=== PATIENT | female | born 1945 | race Caucasian/White ===

== ENCOUNTER 2023-10-23 17:39 | Inpatient (IN) ==
--- NOTE | 2023-10-23 17:48 | ED Triage Note ---
Date of Service October 23, 2023 Provider in Triage Author: Desirae Padilla History of Present Illness This patient was briefly evaluated while in triage. An abbreviated physical exam was performed. This patient is a 78-year-old Female who presents to the ED for evaluation of high blood pressure. She states that she checks her blood pressure frequently at home. She states that she was recently taken off of her diuretic by her doctor due to an episode of dehydration. She states her last BP at home was around 200/100. She denies any symptoms other than feeling slightly flushed. She has been taking her blood pressure meds as prescribed. Physical Exam GENERAL: Non-toxic and in no acute distress. HEENT: Pupils equal. No obvious scleral icterus. HEART: Regular rate and rhythm. LUNGS: Clear to auscultation. No accessory muscle use. NEURO: Alert and oriented. No obvious neurological deficits on quick neuro exam. Initial orders for labs and / or imaging were placed and patient was placed in the waiting area until a bed is available. Please see further documentation for the full ED course.
--- NOTE | 2023-10-23 18:24 | XRay Report ---
XR chest 1V portable HISTORY: 78 years-old Female Htn acute hypertension COMPARISON: 03/11/2023 TECHNIQUE: PA view of the chest. FINDINGS: Left subclavian dual-lead pacer. Cardiomediastinal and hilar silhouettes are unchanged. Right upper a bdominal surgical clips. No pneumothorax, pleural effusion or airspace consolidation. Bones appear gr ossly intact. IMPRESSION: No acute process. ACT 112: Negative or not required by law. The above report was generated using voice recognition software. It may contain grammatical, syntax o r spelling errors. Electronically signed by: Hayden Frost M.D. 10/23/2023 6:23 PM
[2023-10-23 18:32] LABS: Basophils # (auto) 0.02 K/uL (0.00-0.20); Basophils % (auto) 0.3 %; Eosinophils # (auto) 0.07 K/uL (0.00-0.50); Hematocrit (blood only) 36.7 % (37.0-47.0); Hemoglobin 12.2 g/dl (12.0-16.0); Immature Granulocytes # (auto) 0.03 K/uL (0.01-0.20); Immature Granulocytes % (auto) 0.4 %; Lymphocytes # (auto) 2.44 K/uL (1.20-3.40); Lymphocytes % (auto) 33.6 %; Mean Corpuscular Hemoglobin 29.9 pg (25.0-34.0); Mean Corpuscular Hgb Conc 33.2 g/dL (32.0-36.0); Mean Platelet Volume 9.4 fL (9.4-12.4); Monocytes # (auto) 0.31 K/uL (0.11-0.59); Monocytes % (auto) 4.3 %; Neutrophils % (auto) 60.4 %; Platelet Count 279 K/uL (130-400); RDW Coefficient of Variation 14.8 % (11.5-14.5); RDW Standard Deviation 48.7 fL (36.4-46.3); Red Blood Count 4.08 M/uL (4.20-5.40); White Blood Count 7.27 K/ul (4.8-10.8)
[2023-10-23 18:50] LABS: Albumin Globulin Ratio 0.7 (0.9-2); Albumin Level 3.6 gm/dl (3.4-5.0); BUN Creatinine Ratio 19.3 (10-20); Bilirubin,Total 0.4 mg/dl (0.2-1.0); Calcium 9.9 mg/dl (8.6-10.3); Creatinine Clr Calc Pharmacy 44.4 ml/min; Est GFR (African American) 56.7 ml/min; Est GFR (Non-African American) 48.9 ml/min; Globulin 4.9 gm/dl (2.5-4.0); Potassium 3.6 mmol/L (3.5-5.1); Total Protein 8.5 gm/dl (6.0-8.3)
[2023-10-23 18:56] LABS: Troponin I High Sensitivity 23.3 pg/ml (0-14)
[2023-10-23 21:57] LABS: Appearance Urine Clear (Clear); Bacteria Urine Automated Negative (Negative); Bilirubin Urine Negative (Negative); Blood Urine 1+ (Negative); Cast Urine Automated 0 /lpf (0-5); Color Urine Yellow; Glucose Urine UA Negative (Negative); Ketones Urine Negative (Negative); Leukocyte Esterase Urine Negative (Negative); Nitrite Urine Negative (Negative); Protein Urine 3+ (Negative); RBC Urine Automated 0-4 /hpf (0-4); Specific Gravity Urine 1.008 (1.000-1.030); Urobilinogen Urine Negative (Negative); pH Urine 6.5 (4.5-7.5)
[2023-10-23] MEDS: LORazepam 1 MG TAB SL STA (22:16)
--- NOTE | 2023-10-23 23:29 | Emergency Department Note ---
History of Present Illness General Chief complaint: Hypertension Stated complaint: HIGH BLOOD PRESSURE Time Seen by Provider: 10/23/23 21:58 History of Present Illness Provider complaint: Hypertension 78-year-old female presents emergency department for hypertension. Patient reports that she noticed that her blood pressure was high. Patient reports she felt like her heart was racing. She denies any chest pain or difficulty breathing. No headache. Patient states that she has been compliant with her amlodipine. Patient reports that her PCP recently took her off of hydrochlorothiazide 25 mg. She states she took one of her old hydrochlorothiazide today but her blood pressure was still high so she came to the emergency department. 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 Home Medications Medication Instructions Recorded Confirmed Type cholecalciferol (vitamin D3) 25 5,000 unit PO DAILY 11/16/20 10/23/23 History mcg (1,000 unit) tablet multivitamin,tx-minerals 1 tab PO DAILY 11/16/20 10/23/23 History amlodipine 10 mg tablet 10 mg PO QAM 03/12/23 10/23/23 History ezetimibe 10 mg tablet 10 mg PO QPM 03/12/23 10/23/23 History gabapentin 100 mg capsule 100 mg PO QID 03/12/23 10/23/23 History levothyroxine 25 mcg tablet 25 mcg PO DAILYBB 03/12/23 10/23/23 History Lactobacil.acidophilus-Bifido.animalis 1 cap PO TIDM 10/23/23 10/23/23 History 5 billion cell sprinkle capsule (Probiotic) docusate sodium 100 mg capsule 100 mg PO BID 10/23/23 10/23/23 History fexofenadine 180 mg tablet 180 mg PO DAILY 10/23/23 10/23/23 History lisinopril 20 mg tablet 20 mg PO BID 10/23/23 10/23/23 History melatonin 3 mg tablet 3 - 9 mg PO HS PRN Sleep 10/23/23 10/23/23 History psyllium husk (with sugar) 3 1 tbsp PO DAILY 10/23/23 10/23/23 History gram/7 gram oral powder (Metamucil Free) Allergies Allergy/AdvReac Type Severity Reaction Status Date / Time adhesive Allergy Intermediate SKIN Verified 10/23/23 21:37 IRRITATION diltiazem Allergy Mild RASH Verified 10/23/23 21:37 Sulfa (Sulfonamide Allergy Mild RASH Verified 10/23/23 21:37 Antibiotics) Past Med/Surg History Medical History Actinic keratosis Cholelithiasis Anxiety Dyslipidemia 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, non-toxic Hypothyroidism CKD (chronic kidney disease) stage 2, GFR 60-89 ml/min Urethral caruncle Hypertension Asymptomatic microscopic hematuria Renal cell carcinoma Surgical History History of tonsillectomy and adenoidectomy Hx of hernia repair History of nephrectomy, right History of cataract surgery Family History Aunt Diabetes Mother Diabetes Colorectal cancer Hypertension Son Diabetes Father Heart disease Hypertension Other Breast cancer No significant family history Social History Smoking Status: Never smoker Hx Alcohol Use: No Hx Substance Use: No Preferred Language: Salvadorean Communication Ability: Effective Gluer Required: No Beliefs That Will Affect Care: None marital status: Current Living Situation: Spouse current occupational status: retired Feels Safe at Home: Yes Assistive Devices: None Physical Exam Vital Signs Vital Signs - 24 hr 10/23/23 17:44 10/23/23 18:26 10/23/23 20:41 Temperature 36.9 C Temperature Source Temporal Artery Scan Pulse Rate 102 H Pulse Rate [Finger] 98 H 88 Respiratory Rate 18 20 20 Respiratory Effort / Characteristics Non-Labored Spontaneous Non-Labored Spontaneous Non-Labored Spontaneous Respiratory Depth Normal Normal Normal Blood Pressure 208/118 H Blood Pressure [Left Arm] 175/103 H 187/112 H Blood Pressure Mean 148 Blood Pressure Mean [Left Arm] 127 137 Pulse Oximetry 98 97 98 Oxygen Delivery Method Room Air Room Air Room Air Sepsis Recent Fever Within 48 Hours No Sepsis New/Unexplained Change in Mental Status N/A Sepsis Action Taken by Nursing No Action Required 10/23/23 22:27 Temperature Temperature Source Pulse Rate 74 Pulse Rate [Finger] Respiratory Rate Respiratory Effort / Characteristics Respiratory Depth Blood Pressure Blood Pressure [Left Arm] Blood Pressure Mean Blood Pressure Mean [Left Arm] Pulse Oximetry Oxygen Delivery Method Sepsis Recent Fever Within 48 Hours Sepsis New/Unexplained Change in Mental Status Sepsis Action Taken by Nursing Physical Exam GENERAL: oriented to person, place, and time. appears well-developed and well- nourished. HENT: Exam performed. - Head: Normocephalic and atraumatic. EYES: Conjunctivae and EOM are normal. Right eye exhibits no discharge. Left eye exhibits no discharge. No scleral icterus. NECK: Normal range of motion. Neck supple. No JVD present. CV: Normal rate, regular rhythm, normal heart sounds and intact distal pulses. There is no peripheral edema. Palpable radial pulses bue. PULM/CHEST: Effort normal and breath sounds normal. No respiratory distress. No stridor. no wheezes. no rales. ABD: The abdomen is soft. There is no tenderness. NEURO: Motor and sensation grossly intact. SKIN: Skin is warm and dry. He is not diaphoretic. PSYCH: normal mood and affect. Behavior is normal. Judgment and thought content normal. Course Course 2157: The patient was evaluated in room A9. A complete history and physical exam was performed Administered Medications Discontinued Medications Lorazepam (Lorazepam 1 Mg Tab) 0.5 mg SL NOW STA Stop: 10/23/23 22:08 Last Admin: 10/23/23 22:16 Dose: 0.5 mg Documented By: JESSICA Medical Decision Making Laboratory Data Attestation: I reviewed the patient's lab results. 10/23/23 17:56 10/23/23 17:56 Lab Results 10/23/23 10/23/23 10/23/23 Range/Units 17:56 20:42 21:42 WBC 7.27 (4.8-10.8) K/ul RBC 4.08 L (4.20-5.40) M/uL Hgb 12.2 (12.0-16.0) g/dl Hct 36.7 L (37.0-47.0) % MCV 90.0 (80.0-100.0) fL MCH 29.9 (25.0-34.0) pg MCHC 33.2 (32.0-36.0) g/dL RDW Std Deviation 48.7 H (36.4-46.3) fL RDW Coeff of Molly 14.8 H (11.5-14.5) % Plt Count 279 (130-400) K/uL MPV 9.4 (9.4-12.4) fL Immature Gran % (Auto) 0.4 % Neut % (Auto) 60.4 % Lymph % (Auto) 33.6 % Hill % (Auto) 4.3 % Eos % (Auto) 1.0 % Baso % (Auto) 0.3 % Neut # (Auto) 4.40 (1.40-6.50) K/uL Lymph # (Auto) 2.44 (1.20-3.40) K/uL Hill # (Auto) 0.31 (0.11-0.59) K/uL Eos # (Auto) 0.07 (0.00-0.50) K/uL Baso # (Auto) 0.02 (0.00-0.20) K/uL Immature Gran # (Auto) 0.03 (0.01-0.20) K/uL Sodium 135 L (136-145) mmol/L Potassium 3.6 (3.5-5.1) mmol/L Chloride 102 (98-107) mmol/L Carbon Dioxide 24 (21-32) mmol/L Anion Gap 9 (3-11) BUN 21 (6-23) mg/dl Creatinine 1.09 (0.6-1.2) mg/dl Est Cr Clr Drug Dosing 44.4 ml/min Est GFR ( Amer) 56.7 ml/min Est GFR (Non-Af Amer) 48.9 ml/min BUN/Creatinine Ratio 19.3 (10-20) Glucose 99 (70-99(Fasting)) mg/dl Calcium 9.9 (8.6-10.3) mg/dl Total Bilirubin 0.4 (0.2-1.0) mg/dl AST 18 (13-39) U/L ALT 14 (7-52) U/L Alkaline Phosphatase 62 (34-104) U/L Troponin I High Sens 23.3 H 26.4 H (0-14) pg/ml Total Protein 8.5 H (6.0-8.3) gm/dl Albumin 3.6 (3.4-5.0) gm/dl Globulin 4.9 H (2.5-4.0) gm/dl Albumin/Globulin Ratio 0.7 L (0.9-2) Urine Color Yellow Urine Appearance Clear (Clear) Urine pH 6.5 (4.5-7.5) Ur Specific [place] 1.008 (1.000-1.030) Urine Protein 3+ H (Negative) Urine Glucose (UA) Negative (Negative) Urine Ketones Negative (Negative) Urine Blood 1+ H (Negative) Urine Nitrite Negative (Negative) Urine Bilirubin Negative (Negative) Urine Urobilinogen Negative (Negative) Ur Leukocyte Esterase Negative (Negative) Urine WBC (Auto) 1-5 (0-5) /hpf Urine RBC (Auto) 0-4 (0-4) /hpf U Hyaline Cast (Auto) 0 (0-5) /lpf U Epithel Cells (Auto) 10-20 H (0-5) /lpf Urine Bacteria (Auto) Negative (Negative) Imaging Data Attestation: I personally reviewed and interpreted this imaging study as follows: My Impression: Chest x-ray negative. Airway clear. No pneumothorax. No consolidation. No cardiomegaly or cephalization.. No free air under the diaphragm. No fractures of the skeletal structures. Radiologist's Impression: Chest X-Ray 10/23/23 17:49 XR chest 1V portable HISTORY: 78 years-old Female Htn acute hypertension COMPARISON: 03/11/2023 TECHNIQUE: PA view of the chest. FINDINGS: Left subclavian dual-lead pacer. Cardiomediastinal and hilar silhouettes are unchanged. Right upper abdominal surgical clips. No pneumothorax, pleural effusion or airspace consolidation. Bones appear grossly intact. IMPRESSION: No acute process. ACT 112: Negative or not required by law. The above report was generated using voice recognition software. It may contain grammatical, syntax or spelling errors. Electronically signed by: Hayden Frost M.D. 10/23/2023 6:23 PM ECG Data Attestation: I personally reviewed and interpreted this ECG as follows: Additional Comments: Paced rhythm with rate of 94. MT 166 QRS 94 QTc 462. No ectopy. MDM Narrative Cardiac monitoring: An order was placed for continuous cardiac monitoring. The monitor shows a rate of 80 with paced rhythm interpreted by me Patient was seen during a time of extreme volume and extreme acuity. Nursing triage protocols were initiated labs and imaging was conducted by protocol in the triage area. Labs showed a high-sensitivity troponin of 23.3 and her delta high-sensitivity troponin was elevated at 26.4. Given this findings as well as the patient's reported palpitations and high blood pressure, patient will be admitted to the [facility] hospitalist team for further evaluation. Dr. Kim will evaluate patient Impression & Plan Hypertension, Elevated troponin Discharge Plan Visit Data Chief Complaint: Hypertension Stated Complaint: HIGH BLOOD PRESSURE ED Provider: Favian Ferguson Discharge Problem: Hypertension, Elevated troponin Patient Disposition: Being Evaluated by Hospitalist Forms Stand Alone Forms: My [facility] Prescriptions Prescriptions: No Action cholecalciferol (vitamin D3) 25 mcg (1,000 unit) tablet 5,000 unit PO DAILY multivitamin,tx-minerals Tablet 1 tab PO DAILY levothyroxine 25 mcg tablet 25 mcg PO DAILYBB amlodipine 10 mg tablet 10 mg PO QAM gabapentin 100 mg capsule 100 mg PO QID ezetimibe 10 mg tablet 10 mg PO QPM lisinopril 20 mg tablet 20 mg PO BID melatonin 3 mg Tablet 3 - 9 mg PO HS PRN (Reason: Sleep) fexofenadine [Christie] 180 mg Tablet 180 mg PO DAILY docusate sodium 100 mg Capsule 100 mg PO BID Probiotic 5 billion cell Capsule, Sprinkle 1 cap PO TIDM psyllium husk (with sugar) [Metamucil Free] 3 gram/7 gram Powder 1 tbsp PO DAILY Referrals Referrals: Jb Garrett [Primary Care Provider] - Discharge Problem: Hypertension Qualifiers: Hypertension type: unspecified Qualified Code(s): I10 - Essential (primary) hypertension
--- NOTE | 2023-10-24 01:27 | History & Physical Report ---
Date of Service October 24, 2023 Assessment & Plan (1) Hypertensive urgency: Plan: 78-year-old female with past med history significant for hyperlipidemia, hypertension, history of calculus of gallbladder, CKD stage II, smoldering multiple myeloma, history of renal cell carcinoma s/p right nephrectomy 1997, history of symptomatic Mobitz type II's second degree heart block s/p pacemaker in February 2023 comes in because of hypertensive urgency. Patient states in first week of September she was having a lot of cough and on one day she almost passed out. Workup by PCP was unremarkable with 24 hours monitor and labs and thought to be dehydration and hydrochlorothiazide was stopped. She checks her blood pressure every2 /3 days and generally blood pressure in 130s/80s. There is a plan to start chemo for smoldering multiple myeloma. And she is anxious about it. Today when she checked her blood pressure it was in 200s. She checked with another blood pressure machine and it was still high and she got anxious. She took a dose of hctz. And she was brought to the hospital. In the ER she was given a dose of sublingual Ativan. And blood pressure came down to 160s. Currently resting comfortably. Denies any chest pain. No shortness of breath. Currently no cough. No headache. No dizziness. She states 4 days ago she had a brief episode of double vision. No runny nose or sore throat. Appetite is okay. No difficulty swallowing. No nausea. No abdominal pain. Normal bowel and bladder movements. No swelling in the legs. Hypertensive urgency Initial blood pressure in 200s Patient is somewhat anxious for upcoming chemo for smoldering multiple myeloma After dose of Ativan blood pressure in 160s And also recently her hydrochlorothiazide was stopped because of dehydration and she took a dose before coming to the hospital Will continue home lisinopril amlodipine Labetalol as needed for now Echo Telemetry Cardiac consult in a.m. Elevated troponin Mostly demand ischemia Follow serial enzymes and echo History of Mobitz type II second-degree heart block S/p pacemaker Hyperlipidemia On Zetia Hypothyroidism On Synthyroid History of renal cell carcinoma S/p right nephrectomy 1997 Smoldering multiple myeloma Plan for chemo Follow-up with heme-onc DVT prophylaxis Lovenox Disposition Telemetry Full code History of Present Illness Chief Complaint: Hypertensive urgency Primary Care Provider: Jb Garrett 78-year-old female with past med history significant for hyperlipidemia, hypertension, history of calculus of gallbladder, CKD stage II, smoldering multiple myeloma, history of renal cell carcinoma s/p right nephrectomy 1997, history of symptomatic Mobitz type II's second degree heart block s/p pacemaker in February 2023 comes in because of hypertensive urgency. Patient states in first week of September she was having a lot of cough and on one day she almost passed out. Workup by PCP was unremarkable with 24 hours monitor and labs and thought to be dehydration and hydrochlorothiazide was stopped. She checks her blood pressure every2 /3 days and generally blood pressure in 130s/80s. There is a plan to start chemo for smoldering multiple myeloma. And she is anxious about it. Today when she checked her blood pressure it was in 200s. She checked with another blood pressure machine and it was still high and she got anxious. She took a dose of hctz. And she was brought to the hospital. In the ER she was given a dose of sublingual Ativan. And blood pressure came down to 160s. Currently resting comfortably. Denies any chest pain. No shortness of breath. Currently no cough. No headache. No dizziness. She states 4 days ago she had a brief episode of double vision. No runny nose or sore throat. Appetite is okay. No difficulty swallowing. No nausea. No abdominal pain. Normal bowel and bladder movements. No swelling in the legs. Past medical history. As mentioned above past surgical history. Bone marrow biopsy. EGD with endoscopic ultrasound. Right nephrectomy. Tonsillectomy and adenoidectomy. Status post pacemaker. Social history. . No smoking. No alcohol use. No drug use. Family history. Mother had breast cancer. Colon cancer. Sister had breast cancer. Daughter had carotid body tumor. Father had heart disorder. Thyroid cancer. Brother had lung cancer. Brother had seizures. Allergies Allergy/AdvReac Type Severity Reaction Status Date / Time adhesive Allergy Intermediate SKIN Verified 10/23/23 21:37 IRRITATION diltiazem Allergy Mild RASH Verified 10/23/23 21:37 Sulfa (Sulfonamide Allergy Mild RASH Verified 10/23/23 21:37 Antibiotics) Home Medications Medication Instructions Recorded Confirmed Type cholecalciferol (vitamin D3) 25 5,000 unit PO DAILY 11/16/20 10/23/23 History mcg (1,000 unit) tablet multivitamin,tx-minerals 1 tab PO DAILY 11/16/20 10/23/23 History amlodipine 10 mg tablet 10 mg PO QAM 03/12/23 10/23/23 History ezetimibe 10 mg tablet 10 mg PO QPM 03/12/23 10/23/23 History gabapentin 100 mg capsule 100 mg PO QID 03/12/23 10/23/23 History levothyroxine 25 mcg tablet 25 mcg PO DAILYBB 03/12/23 10/23/23 History Lactobacil.acidophilus-Bifido.animalis 1 cap PO TIDM 10/23/23 10/23/23 History 5 billion cell sprinkle capsule (Probiotic) docusate sodium 100 mg capsule 100 mg PO BID 10/23/23 10/23/23 History fexofenadine 180 mg tablet 180 mg PO DAILY 10/23/23 10/23/23 History lisinopril 20 mg tablet 20 mg PO BID 10/23/23 10/23/23 History melatonin 3 mg tablet 3 - 9 mg PO HS PRN Sleep 10/23/23 10/23/23 History psyllium husk (with sugar) 3 1 tbsp PO DAILY 10/23/23 10/23/23 History gram/7 gram oral powder (Metamucil Free) Past Med/Surg History Medical History Actinic keratosis Cholelithiasis Anxiety Dyslipidemia 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, non-toxic Hypothyroidism CKD (chronic kidney disease) stage 2, GFR 60-89 ml/min Urethral caruncle Hypertension Asymptomatic microscopic hematuria Renal cell carcinoma Surgical History History of tonsillectomy and adenoidectomy Hx of hernia repair History of nephrectomy, right History of cataract surgery Family History Aunt Diabetes Mother Diabetes Colorectal cancer Hypertension Son Diabetes Father Heart disease Hypertension Other Breast cancer No significant family history Social History Smoking Status: Never smoker Do You Dip or Chew Tobacco: No; Hx Alcohol Use: No Hx Substance Use: No Preferred Language: Urdu Communication Ability: Effective Queen'S Counsel Required: No Beliefs That Will Affect Care: None marital status: Current Living Situation: Spouse current occupational status: retired Feels Safe at Home: Yes Safety Concerns: Feels Safe At This Time Assistive Devices: None Review of Systems Review of Systems: All systems reviewed & are unremarkable except as noted in HPI & below Physical Exam Physical Exam: General- Not in distress Head- atraumatic Eyes- PERRL. ENT- oropharynx clear Neck- supple, no JVD. Lungs- clear to auscultation no wheezing or crackles. Heart- regular rhythm; no murmur, no gallop. Abdomen- normal bowel sounds, soft, nontender, no distension. Extremities- no pretibial edema, no erythema seen Neuro- alert, oriented PERRL, no facial palsy; no dysarthria; moves extremities. Results & Data Results & Data Vital Signs (Past 12 Hours) Vital Signs Temp Pulse Pulse Resp BP BP Pulse Ox 10/24/23 00:18 68 15 166/102 H 96 10/24/23 00:00 68 21 95 10/24/23 00:00 166/102 H 10/23/23 23:38 164/88 H 10/23/23 23:38 64 17 95 10/23/23 23:38 65 20 164/88 H 97 10/23/23 23:30 65 18 94 10/23/23 23:00 63 15 95 10/23/23 22:30 65 19 95 10/23/23 22:27 74 10/23/23 22:26 69 17 96 10/23/23 20:41 88 20 187/112 H 98 10/23/23 18:26 98 H 20 175/103 H 97 10/23/23 17:44 36.9 C 102 H 18 208/118 H 98 O2 Del Method 10/24/23 00:18 Room Air 10/24/23 00:00 Room Air 10/24/23 00:00 10/23/23 23:38 10/23/23 23:38 Room Air 10/23/23 23:38 Room Air 10/23/23 23:30 Room Air 10/23/23 23:00 10/23/23 22:30 10/23/23 22:27 10/23/23 22:26 10/23/23 20:41 Room Air 10/23/23 18:26 Room Air 10/23/23 17:44 Room Air Diagnostic Findings Laboratory Results WBC 7.27 K/ul (4.8-10.8) 10/23/23 17:56 RBC 4.08 M/uL (4.20-5.40) L 10/23/23 17:56 Hgb 12.2 g/dl (12.0-16.0) 10/23/23 17:56 Hct 36.7 % (37.0-47.0) L 10/23/23 17:56 MCV 90.0 fL (80.0-100.0) 10/23/23 17:56 MCH 29.9 pg (25.0-34.0) 10/23/23 17:56 MCHC 33.2 g/dL (32.0-36.0) 10/23/23 17:56 RDW Std Deviation 48.7 fL (36.4-46.3) H 10/23/23 17:56 RDW Coeff of Molly 14.8 % (11.5-14.5) H 10/23/23 17:56 Plt Count 279 K/uL (130-400) 10/23/23 17:56 MPV 9.4 fL (9.4-12.4) 10/23/23 17:56 Immature Gran % (Auto) 0.4 % 10/23/23 17:56 Neut % (Auto) 60.4 % 10/23/23 17:56 Lymph % (Auto) 33.6 % 10/23/23 17:56 [place] % (Auto) 4.3 % 10/23/23 17:56 Eos % (Auto) 1.0 % 10/23/23 17:56 Baso % (Auto) 0.3 % 10/23/23 17:56 Neut # (Auto) 4.40 K/uL (1.40-6.50) 10/23/23 17:56 Lymph # (Auto) 2.44 K/uL (1.20-3.40) 10/23/23 17:56 [place] # (Auto) 0.31 K/uL (0.11-0.59) 10/23/23 17:56 Eos # (Auto) 0.07 K/uL (0.00-0.50) 10/23/23 17:56 Baso # (Auto) 0.02 K/uL (0.00-0.20) 10/23/23 17:56 Immature Gran # (Auto) 0.03 K/uL (0.01-0.20) 10/23/23 17:56 Sodium 135 mmol/L (136-145) L 10/23/23 17:56 Potassium 3.6 mmol/L (3.5-5.1) 10/23/23 17:56 Chloride 102 mmol/L (98-107) 10/23/23 17:56 Carbon Dioxide 24 mmol/L (21-32) 10/23/23 17:56 Anion Gap 9 (3-11) 10/23/23 17:56 BUN 21 mg/dl (6-23) 10/23/23 17:56 Creatinine 1.09 mg/dl (0.6-1.2) 10/23/23 17:56 Est Cr Clr Drug Dosing 44.4 ml/min 10/23/23 17:56 Est GFR ( Amer) 56.7 ml/min 10/23/23 17:56 Est GFR (Non-Af Amer) 48.9 ml/min 10/23/23 17:56 BUN/Creatinine Ratio 19.3 (10-20) 10/23/23 17:56 Glucose 99 mg/dl (70-99(Fasting)) 10/23/23 17:56 Calcium 9.9 mg/dl (8.6-10.3) 10/23/23 17:56 Total Bilirubin 0.4 mg/dl (0.2-1.0) 10/23/23 17:56 AST 18 U/L (13-39) 10/23/23 17:56 ALT 14 U/L (7-52) 10/23/23 17:56 Alkaline Phosphatase 62 U/L (34-104) 10/23/23 17:56 Troponin I High Sens 26.4 pg/ml (0-14) H 10/23/23 20:42 Total Protein 8.5 gm/dl (6.0-8.3) H 10/23/23 17:56 Albumin 3.6 gm/dl (3.4-5.0) 10/23/23 17:56 Globulin 4.9 gm/dl (2.5-4.0) H 10/23/23 17:56 Albumin/Globulin Ratio 0.7 (0.9-2) L 10/23/23 17:56 Urine Color Yellow 10/23/23 21:42 Urine Appearance Clear (Clear) 10/23/23 21:42 Urine pH 6.5 (4.5-7.5) 10/23/23 21:42 Ur Specific [place] 1.008 (1.000-1.030) 10/23/23 21:42 Urine Protein 3+ (Negative) H 10/23/23 21:42 Urine Glucose (UA) Negative (Negative) 10/23/23 21:42 Urine Ketones Negative (Negative) 10/23/23 21:42 Urine Blood 1+ (Negative) H 10/23/23 21:42 Urine Nitrite Negative (Negative) 10/23/23 21:42 Urine Bilirubin Negative (Negative) 10/23/23 21:42 Urine Urobilinogen Negative (Negative) 10/23/23 21:42 Ur Leukocyte Esterase Negative (Negative) 10/23/23 21:42 Urine WBC (Auto) 1-5 /hpf (0-5) 10/23/23 21:42 Urine RBC (Auto) 0-4 /hpf (0-4) 10/23/23 21:42 U Hyaline Cast (Auto) 0 /lpf (0-5) 10/23/23 21:42 U Epithel Cells (Auto) 10-20 /lpf (0-5) H 10/23/23 21:42 Urine Bacteria (Auto) Negative (Negative) 10/23/23 21:42 Impressions Chest X-Ray 10/23/23 17:49 XR chest 1V portable HISTORY: 78 years-old Female Htn acute hypertension COMPARISON: 03/11/2023 TECHNIQUE: PA view of the chest. FINDINGS: Left subclavian dual-lead pacer. Cardiomediastinal and hilar silhouettes are unchanged. Right upper abdominal surgical clips. No pneumothorax, pleural effus ion or airspace consolidation. Bones appear grossly intact. IMPRESSION: No acute process. ACT 112: Negative or not required by law. The above report was generated using voice recognition software. It may contain grammatical, syntax or spelling errors. Electronically signed by: Hayden Frost M.D. 10/23/2023 6:23 PM ECG Additional Comments: ECG. Atrial sensed ventricular paced rhythm with rate of 94. Code Status & VTE Plan VTE Prophylaxis Plan VTE Prophylaxis will be ordered: Yes
[2023-10-24] MEDS: GABAPENTIN 100 MG CAP PO STA (02:14)
[2023-10-24] MEDS: lisinopril 20 MG TAB PO STA (02:14)
[2023-10-24] MEDS ORDERED: LABETALOL HCL IV 5 MG/ML 20ML IV PRN (03:04)
[2023-10-24] MEDS ORDERED: ACETAMINOPHEN 325 MG TAB PO PRN (03:04)
[2023-10-24] MEDS ORDERED: NITROGLYCERIN SL 0.4 MG/TAB TAB SL PRN (03:04)
[2023-10-24] MEDS ORDERED: MELATONIN 3 MG TAB PO PRN (03:04)
[2023-10-24 06:28] LABS: Basophils # (auto) 0.01 K/uL (0.00-0.20); Basophils % (auto) 0.2 %; Eosinophils # (auto) 0.05 K/uL (0.00-0.50); Hemoglobin 10.4 g/dl (12.0-16.0); Immature Granulocytes # (auto) 0.02 K/uL (0.01-0.20); Immature Granulocytes % (auto) 0.4 %; Lymphocytes # (auto) 1.73 K/uL (1.20-3.40); Mean Corpuscular Hemoglobin 30.3 pg (25.0-34.0); Mean Corpuscular Hgb Conc 33.5 g/dL (32.0-36.0); Mean Corpuscular Volume 90.4 fL (80.0-100.0); Mean Platelet Volume 9.4 fL (9.4-12.4); Monocytes # (auto) 0.27 K/uL (0.11-0.59); Monocytes % (auto) 5.3 %; Neutrophils # (auto) 3.01 K/uL (1.40-6.50); Neutrophils % (auto) 59.1 %; Platelet Count 246 K/uL (130-400); RDW Standard Deviation 49.9 fL (36.4-46.3); Red Blood Count 3.43 M/uL (4.20-5.40); White Blood Count 5.09 K/ul (4.8-10.8)
[2023-10-24 06:50] LABS: BUN Creatinine Ratio 17.1 (10-20); Calcium 9.3 mg/dl (8.6-10.3); Creatinine Clr Calc Pharmacy 43.6 ml/min; Est GFR (African American) 55.5 ml/min; Est GFR (Non-African American) 47.9 ml/min
[2023-10-24 06:56] LABS: Troponin I High Sensitivity 32.2 pg/ml (0-14)
[2023-10-24] MEDS: LEVOTHYROXINE SODIUM 25 MCG TABLET PO SCH (07:23)
--- OUTSIDE RECORDS SUMMARY | 2023-10-24 07:25 | External Medical Summary | Summary of Care ---
Author Name Unknown Organization [facility] Address [address] [place] [address] Phone [phone] Care Team Providers Care Senior It Recruiter Name Role Phone Ofelia Garrett MD Primary Care Provider [phone] Encounter Details Date Type Department Care Team (Late st Contact Info) Description 10/22/2023 3:15 PM EDT Nurse Only Hematology/Oncology [facility] Liliane [place] [address] [place] [phone] Liliane, Nurse Hem Onc Scenery [address] [place] [address] Allergies Active Allergy Reactions Criticality Noted Date Comments Diltiazem Hcl 10/20/2008 Sulfa Antibiotics 01/17/2001 rash Wound Dressing Adhesive 03/23/2023 Device implant dressing documented as of this encounter (statuses as of 10/22/2023) Medications Medication Sig Dispensed Refills Start Date End Date Status DAILY MULTIVITAMIN PO TABS 1 tqab daily 0 Active amLODIPine (NORVASC) 10 MG Tablet Take by mouth daily. Every morning. 1 06/25/2015 Active Cholecalciferol 5000 UNITS TABS Take 5,000 Units by mouth daily. 0 Active Probiotic Product (PROBIOTIC & ACIDOPHILUS EX ST) Capsule Take 1 Cap by mouth three times a day with meals. 0 Active lisinopril (PRINIVIL) 20 MG Tablet Take 1 Tablet by mouth in the morning and 1 Tablet before bedtime. 0 Active Ezetimibe 10 MG Oral Tablet Take 1 Tablet by mouth in the morning. Takes in the evening. 0 Active Levothyroxine Sodium 25 MCG Oral Tablet (Levoxyl) Take 1 Tablet by mouth daily first thing in the morning. 0 04/26/2021 Active Gabapentin 100 MG Oral Capsule (Neurontin) TAKE 1 CAPSULE BY MOUTH THREE TIMES A DAY FOR NEUROPATHY 0 02/17/2021 Active Fexofenadine HCl 180 MG Oral Tablet (Christie Allergy) Take 1 Tablet by mouth in the morning. 0 Active Melatonin 3-10 MG Oral Tablet Take by mouth. 0 Active Metamucil Free & Natural 43 % Oral Powder (Psyllium) Take by mouth. 0 Act franco Docusate Sodium 100 MG Oral Capsule (Stool Softener) Take 1 Capsule by mouth in the morning and 1 Capsule before bedtime. 0 Active Aspirin 81 MG Oral CapsuleIndications:S moldering multiple myeloma Take 81 mg by mouth every evening. 90 Capsule 1 10/19/2023 Active dexAMETHasone 4 MG Oral Tablet (Decadron)Indication s:Smoldering multiple myeloma Take 10 tablets by mouth once a week 120 Tablet 1 10/19/2023 Active Acyclovir 400 MG Oral Tablet (Zovirax)Indications :Smoldering multiple myeloma Take 1 Tablet by mouth in the morning and 1 Tablet before bedtime. 180 Tablet 1 10/22/2023 Active documented as of this encounter (statuses as of 10/22/2023) Active Problems Problem Noted Date Diagnosed Date Smoldering multiple myeloma 10/11/2023 Encounter for antineoplastic chemotherapy 2023 Monoallelic mutation of SDHB gene 11/12/2020 Overview: pathogenic SDHB gene variant (c.286+2 T>A) detected via [employer]. Increased risk for Hereditary Paraganglioma Pheochromocytoma Syndrome. Please click the link below into your browser for a brief summary of current clinical management recommendations for Hereditary Paraganglioma Pheochromocytoma syndrome. SDHB Hx of actinic keratosis 04/14/2019 MGUS (monoclonal gammopathy of unknown significa nce) 03/25/2019 Hypertension goal BP (blood pressure) < 140/90 1 09/03/2016 CKD (chronic kidney disease) stage 2, GFR 60-89 ml/min 09/21/2016 DYSLIPIDEMIA, GOAL TO BE DETERMINED 07/08/2009 Overview: Per Lipid Taxonomy. Malignant neoplasm of kidney TOX DIF GOITER NO CRISIS NONTOX UNINODULAR GOITER Proteinuria GENERALIZED ANXIETY DIS Calculus of gallbladder with out mention of cholecystitis or obstruction documented as of this encounter (statuses as of 10/22/2023) Resolved Problems Problem Noted Date Diagnosed Date Resolved Date dysplastic nevi 08/04/2002 07/21/2015 HTN, goal below 140/90 12/21 PURE HYPERCHOLESTEROLEM 06/22 Overview: Per Lipid Taxonomy. documented as of this encounter (statuses as of 10/22/2023) Immunizations Name Administration Dates Next Due Seasonal Influenza, Quadrivalent Hd, 65+ Yrs documented as of this encounter Social History Tobacco Use Types Packs/Day Years Used Date Smoking Tobacco: Never Smokeless Tobacco: Never Alcohol Use Standard Drinks/Week Comments No 0 (1 standard drink = 0.6 oz pur e alcohol) Sex and Gender Information Value Date Recorded Sex Assigned at Not on file Gender Identity Not on file Sexual Orientation Not on file Job Start Date Occupation Industry Not on file Not on file Not on file documented as of this encounter Progress Notes * Omar Escobar, RN - 10/22/2023 4:16 PM EDT Patient education completed. documented in this encounter Plan of Treatment Upcoming Encounters Date Type Department Care Team (Latest Contact Info) Description 10/23/2023 1:30 PM EDT Pharmacy Pharmacy Hematology Oncology [facility] [address] [place] [address] [facility] Hem/Onc [address] [place] [address] 11/26/2023 8:00 AM EDT Office Visit Hematology/Oncol linette [facility] [place] [address] [place] [phone] Rosie Church MD [address] [place] [address] 12/10/2023 8:00 AM EDT Hospital Encounter ENDO [facility], Endoscopy Room [facility] [address] [place] [phone] Adama Dutta MD [address] [place] [address] 12/10/2023 8:00 AM EDT - 12/10/2023 8:45 AM EDT Surgery ENDO [facility], Endoscopy Room [facility] [address] [place] [phone] Adama Dutta MD [address] [place] [address] ESOPHAGOGASTRODUODENOSCOPY (EGD), FLEXIBLE, TRANSORAL, ENDOSCOPIC ULTRASOUND 12/12/2023 9:40 AM EDT Office Visit Dermatology [facility] [address] [place] [address] Meliza Tao PA-C [address] [place] [phone] 05/06/2024 10:00 AM EDT Cardiac Studies Cardiology, [facility] [address] [place] [address] [facility] [address] [place] [address] 07/24/2024 11:00 AM EST Imaging Radiology [address] [place] [id number] Scheduled Procedures Name Priority Associated Diagnoses Date/Ti me ESOPHAGOGASTRODUODENOSCOPY ( EGD), FLEXIBLE, TRANSORAL, ENDOSCOPIC ULTRASOUND Recall Pancreatic lesion 12/10/2023 8:00 AM EDT Health Maintenance Due Date Last Done Comments Depression Screening 1957 DTaP,Tdap,and Td Vaccines (1 - Tdap) 1964 Pneumococcal Vaccine: 65+ Years (1 of 1 - PCV) 09/24/2011 Zoster Vaccines (2 of 2) 07/05/2020 05/10/2020 Albumin/Creatinine Ratio 12/12/2020 018, 12/05/2016, 08/03/2016, Additional history exists *BASELINE EKG FOR HTN 08/01/2021 COVID-19 Vaccine (1 - season) 2023 TSH 02/24/2024 02/23/2023, 09/20, 06/06/2021, Additional history exists Influenza Vaccine (FLU shot) (Season Ended) 2024 05/10/2022, 06/10/2001, 07/02/2000 GFR 10/21/2024 10/22/2023, 08/24, 07/11/2023, Additional history exists DXA Scan 03/10/2026 03/10/2019, 01/21, 12/30/2013 Colorectal Cancer Screening Discontinued Fecal Occult Blood Test Discontinued 02/23/20, 06/03/2010, 08/24/2008 Cologuard Discontinued Colonoscopy Discontinued GARDASIL-HPV IMMUNIZATION SERIES Aged Out No longer eligible based on patient's age to complete this topic Hepatitis B Aged Out No longer eligi ble based on patient's age to complete this topic MENINGOCOCCAL (MENACTRA/MENVEO) Aged Out No longer eligible based on patient's age to complete this topic Sigmoidoscopy Discontinued documented as of this encounter Medical Devices Not on filedocumented as of this encounter Care Teams Senior It Recruiter Relationship Specialty Start Date End Date Ofelia Garrett MD [address] [place] [address] [place] [address] PCP - General 06/21/01 documented as of this encounter
--- OUTSIDE RECORDS SUMMARY | 2023-10-24 07:25 | External Medical Summary | Summary of Care ---
Author Name Unknown Organization [facility] Address [address] [place] [address] Phone [phone] Care Team Providers Care Assistant Professor Of Life Sciences Name Role Phone Ofelia Garrett MD Primary Care Provider [phone] [phone] Reason for Visit * Reason Onset Date Comments Precert Future 10/11/2023 Gian lujan Encounter Details Date Type Department Care Team (Late st Contact Info) Description 10/11/2023 Telephone Hematology/Oncology [facility] [address] [place] [phone] Mick Haji MD [address] [place] [address] Precert Future (Gian lujan) Allergies Active Allergy Reactions Criticality Noted Date Comments Diltiazem Hcl 10/20/2008 Sulfa Antibiotics 01/17/2001 rash Wound Dressing Adhesive 03/23/2023 Device implant dressing documented as of this encounter (statuses as of 10/23/2023) Medications Medication Sig Dispensed Refills Start Date [...] and 1 Capsule before bedtime. 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 Increased risk for Hereditary Paraganglioma Pheochromocytoma Syndrome. [...] as of this encounter (statuses as of 10/23/2023) Resolved Problems Problem Noted Date Diagnosed Date Resolved Date dysplastic nevi 08/04/2002 07/21/2015 HTN, goal below 140/90 12/21 PURE HYPERCHOLESTEROLEM 06/22 Overview: Per Lipid Taxonomy. documented as of this encounter (statuses as of 10/23/2023) Immunizations Name Administration Dates Next Due Influenza, Whole Virus 07/02/2000 1 Seasonal Influenza, Quadrivalent Hd, 65+ Yrs Seasonal Influenza, Split, IIV3, With Preserve, Inj 06/10/2001 06/10/2002 documented as of this encounter Social History [...] on file documented as of this encounter Miscellaneous Notes * Telephone Encounter - Tricia Jacinto RN - 10/23/2023 7:[address] Church: looks like patient is not proceeding with darzalex- please place either new order or alteration specifying that darzalex is discontinued, patient is proceeding with revlimid and decadron. Thanks! * Telephone Encounter - Omar Escobar RN - 10/22/2023 4:28 PM EDT MTM- Pt education completed, her and Dr. Church both sign REMS agreement form - faxed today to rn perioperative. Pt is aware to complete the survey ROBERT. * Telephone Encounter - Cornelia Mcginnis OSA - 10/16/2023 9:57 AM EDT Scheduled as noted below and sent message to Carol Mcneill about adding pt to Dr Jones due to not being ableto schedule * Telephone Encounter - Tricia Jacinto RN - 10/16/2023 9:41 AM EDT Since darzalex is denied, called patient. Advised her that it may be more beneficial to reschedule to also see Dr Church as this may change plan of care. Patient agreeable. Scheduling: please cancel appts today for labs/ nurse visit and reschedule for Sunday10/22/23 - labs "CBCd, CMP, SPEP, kappa, Ig, hep B labs" at 2:15pm - Dr Church at 2:45pm - nurse education visit at 3:15pm Patient aware of above. Thanks! * Telephone Encounter - Susan Wilkinson OSA - 10/15/2023 3:27 PM EDT Submitted today. Will update when determination is received. Susan Wilkinson Medication It Administrative Assistant P: [phone] F: [phone] 10/15/2023,3:27 PM * Telephone Encounter - Tricia Jacinto RN - 10/15/2023 2:42 PM EDT Please still move forward with auth for revlimid. Thanks! * Telephone Encounter - Mallory Rodriguez OSA - 10/15/2023 9:19 AM EDT Darzalex was denied. If revlimid is needed please send to [facility] pool [phone] * Telephone Encounter - Omar Escobar RN - 10/12/2023 3:57 PM EDT Pt ht added into chart, please update referral. * Addendum Note - Omar Escobar RN - 10/12/2023 11:53 AM EDTAddended by: OMAR ESCOBAR on: 10/12/2023 11:53 AM Modules accepted: Orders * Telephone Encounter - Omar Escobar RN - 10/11/2023 2:59 PM EDT [place] plan built and routed for signature. Will await auth. - Nurse education scheduled 10/16/23 - Consent signed: 10/10/23 - Standing lab orders placed: CBCd, CMP prior to each treatment, [place], SPEP, Ig once a month - Meds ordered: Dexamethasone, Aspirin 81mg, Acyclovir 400mg MT- FYI documented in this encounter Plan of Treatment Upcoming Encounters Date Type Department Care Team (Latest Contact Info) Description 10/23/2023 1:30 PM EDT Pharmacy Pharmacy Hematology Oncology [place] [address] [place] [address] [facility], [facility] Hem/Onc [address] [place] [address] 11/26/2023 8:00 AM EDT Office Visit Hematology/Oncol [facility] [address] [place] [phone] Rosie Church MD [address] [place] [address] 12/10/2023 8:00 AM EDT Hospital Encounter ENDO [facility], Endoscopy Room [facility] [address] [place] [phone] Adama Dutta MD [address] [place] [address] 12/10/2023 8:00 AM EDT - 12/10/2023 8:45 AM EDT Surgery ENDO [facility], Endoscopy Room [facility] [address] [place] [phone] Adama Dutta MD [address] [place] [address] ESOPHAGOGASTRODUODENOSCOPY (EGD), FLEXIBLE, TRANSORAL, ENDOSCOPIC ULTRASOUND 12/12/2023 9:40 AM EDT Office Visit Dermatology [facility] [address] [place] [address] Meliza Tao PA-C [address] [place] [phone] 05/06/2024 10:00 AM EDT Cardiac Studies Cardiology, [facility] [address] [place] [address] [place], Pacer Clinic [facility] [address] [place] [address] 07/24/2024 11:00 AM EST Imaging Radiology [address] [place] [address] Scheduled Procedures Name Priority Associated Diagnoses Date/Ti [...] *BASELINE EKG FOR HTN 08/01/2021 COVID-19 Vaccine ( season) 2023 TSH 02/24/2024 02/23/2023, 09/20, 06/06/2021, [...] Not on filedocumented as of this encounter Visit Diagnoses Diagnosis Smoldering multiple myeloma (SMM)- Primary Multiple myeloma, without mention of having achieved remission Pancreatic lesion Unspecified disease of pancreas documented in this encounter Care Teams Assistant Professor Of Life Sciences Relationship Specialty Start Date End Date Ofelia Garrett MD [address] [place] [address] [place] [address] PCP - General 06/21/01 documented as of this encounter
--- OUTSIDE RECORDS SUMMARY | 2023-10-24 07:25 | External Medical Summary | Summary of Care ---
Author Name Unknown Organization [facility] Address [address] [place] [address] Phone [phone] Care Team Providers Care Router Machine Operator Name Role Phone Ofelia Garrett MD Primary Care Provider [phone] Reason for Visit * Reason Onset Date Comments Precert Future 10/11/2023 Gian lujan Encounter Details Date Type Department Care Team (Late st Contact Info) Description 10/11/2023 Telephone Hematology/Oncology [facility] [address] [place] [phone] Mick Haji MD [address] [place] [address] Precert Future (Gian lujan) Allergies Active Allergy [...] SDHB gene variant (c.286+2 T>A) detected via [employer]. Increased risk for Hereditary Paraganglioma Pheochromocytoma Syndrome. [...] 10/22/2023) Immunizations Name Administration Dates Next Due Influenza, [...] encounter Miscellaneous Notes * Telephone Encounter - Omar Escobar RN - 10/22/2023 4:28 PM EDT MTM- Pt education completed, her and Dr. Church both sign REMS agreement form - faxed today to quality assurance lead. Pt is aware to complete the survey [...] when determination is received. Susan Wilkinson Medication Float Remover P: [phone] F: [phone] 10/15/2023,3:27 PM * Telephone Encounter - Tricia Jacinto RN - 10/15/2023 2:42 PM EDT Please still move forward with auth for revlimid. Thanks! * Telephone Encounter - Mallory Rodriguez OSA - 10/15/2023 9:19 AM EDT Darzalex was denied. If revlimid is needed please send to oral pool [phone] * Telephone Encounter - Omar Escobar RN - 10/12/2023 3:57 PM EDT Pt ht added into chart, please update referral. * Addendum Note - Omar Escobar RN - 10/12/2023 11:53 AM EDTAddended by: OMAR ESCOBAR on: 10/12/2023 11:53 AM Modules accepted: Orders * Telephone Encounter - Omar Escobar RN - 10/11/2023 2:59 PM EDT [place] plan built and routed for signature. Will await auth. - Nurse education scheduled 10/16/23 - Consent signed: 10/10/23 - Standing lab orders placed: CBCd, CMP prior to each treatment, [place], SPEP, Ig once a month - Meds ordered: Dexamethasone, Aspirin 81mg, Acyclovir 400mg MT- FYI documented in this encounter Plan of Treatment Upcoming Encounters Date Type Department Care Team (Latest Contact Info) Description 10/23/2023 1:30 PM EDT Pharmacy Pharmacy Hematology Oncology [address] [address] [facility], [facility] Hem/Onc [facility] [place] [address] 11/26/2023 8:00 AM EDT Office Visit Hematology/Oncol [facility] [place] [address] [place] [phone] Rosie Church MD 200 [facility] [place] [address] 12/10/2023 8:00 AM EDT Hospital Encounter ENDO [facility], Endoscopy Room [facility] [address] [place] [phone] Adama Dutta MD [address] [place] [address] 12/10/2023 8:00 AM EDT - 12/10/2023 8:45 AM EDT Surgery ENDO [facility], Endoscopy Room [facility] [address] [place] [phone] Adama Dutta MD [address] [place] [address] ESOPHAGOGASTRODUODENOSCOPY (EGD), FLEXIBLE, TRANSORAL, ENDOSCOPIC ULTRASOUND 12/12/2023 9:40 AM EDT Office Visit Dermatology [facility] [address] [place] [address] Meliza Tao PA-C [address] [place] [phone] 05/06/2024 10:00 AM EDT Cardiac Studies Cardiology, [facility] [address] [place] [address] [place], Pacer Clinic [facility] 132 [facility] [place] [address] 07/24/2024 11:00 AM EST Imaging Radiology [address] [place] [address] Scheduled Procedures Name Priority Associated Diagnoses Date/Ti [...] FOR HTN 08/01/2021 COVID-19 Vaccine (1 - 2022- season) 2023 TSH 02/24/2024 02/23/2023, 09/20, 06/06/2021, [...] pancreas documented in this encounter Care Teams Router Machine Operator Relationship Specialty Start Date End Date Ofelia Garrett MD [address] [place] [address] [place] [address] PCP - General 06/21/01 documented as of this encounter
--- OUTSIDE RECORDS SUMMARY | 2023-10-24 07:26 | External Medical Summary ---
Author Name Unknown Address Unknown Organization [id number]:LAB[facility]ATORY [facility] [place] - [facility] [address] [place] [address] Laboratory Report Ordering Provider Test Date Status ASHOK MULLER 10/22/2023 14:16:08 Final Observation Date Value Abnormality Reference (Units ) Status [place] light chains, Free, Serum 10/22/2023 14:16:08 463.00 Above high normal 3.30-19.40 (mg/L) Final Lambda light chains, free, Serum 10/22/2023 14:16:08 10.22 5.71-26.30 (mg/L) Final KAPPA LAMBDA FLC RATIO 10/22/2023 14:16:08 45.30 Above high normal 0.26-1.65 Final Performing Location [facility]ORY [facility] [place] - [facility] [place] [address]
--- OUTSIDE RECORDS SUMMARY | 2023-10-24 07:26 | External Medical Summary ---
Author Name Unknown Address Unknown Organization [id number]:LABORATORY [facility] [place] - [address] [facility] [address] Laboratory Report Ordering Provider Test Date Status ASHOK MULLER 10/22/2023 14:16:08 Final Observation Date Value Abnormality Reference (Units) Status PARAPROTEIN NORMAL/ABNORMAL 10/22/2023 14:16:08 Abnormal Abnormal Normal Final Protein 10/22/2023 14:16:08 7.2 6.0-8.3 (g/dL) Final Albumin/Protein.total [Pure mass fraction] in Serum or Plasma by Electrophoresis 10/22/2023 14:16:08 3.08 Below low normal 3.30-4.40 (g/dL) Final Alpha 1 globulin/Protein.tota l [Pure mass fraction] in Serum or Plasma by Electrophoresis 10/22/2023 14:16:08 0.21 0.10-0.30 (g/dL) Final Alpha 2 globulin/Protein.tota l [Pure mass fraction] in Serum or Plasma by Electrophoresis 10/22/2023 14:16:08 1.05 Above high normal 0.60-1.00 (g/dL) Final Beta globulin/Protein.tota l [Pure mass fraction] in Serum or Plasma by Electrophoresis 10/22/2023 14:16:08 2.59 Above high normal 0.80-1.30 (g/dL) Final Gamma globulin/Protein.tota l [Pure mass fraction] in Serum or Plasma by Electrophoresis 10/22/2023 14:16:08 0.27 Below low normal 0.70-1.70 (g/dL) Final Protein Fractions [Interpretation] in Serum or Plasma by Electrophoresis Narrative 10/22/2023 14:16:08 Abnormal. A paraprotein is present that has been previously identified as a monoclonal IgG kappa. Decreased gamma fraction. Unable to accurately identify or quantify the paraprotein due to its comigration in the beta region. Final Performing Location LAB[facility]ATORY [facility] [place] - [address] [facility] [address]
--- OUTSIDE RECORDS SUMMARY | 2023-10-24 07:26 | External Medical Summary ---
Author Name Unknown Address Unknown Organization K09:[facility] [facility] [address] [place] [address] Laboratory Report Ordering Provider Test Date Status ASHOK MULLER 10/22/2023 14:16:08 Final Observation Date Value Abnormality Reference (Units ) Status BUN 10/22/2023 14:16:08 24 Above high normal 6-20 (mg/dL) Final Creatinine 10/22/2023 14:16:08 1.3 Above high normal 0.5-1.0 (mg/dL) Final Glomerular filtration rate/1.73 sq M.predicted [Volume Rate/Area] in Serum, Plasma or Blood by Creatinine-based formula (CKD-EPI) 10/22/2023 14:16:08 44 Below low normal >=60 (mL/min) Final eGFR is calculated based on the CKD-EPI 2020 equation Sodium 10/22/2023 14:16:08 140 135-146 (m mol/L) Final Potassium 10/22/2023 14:16:08 3.9 3.5-5.1 (m mol/L) Final Cl 10/22/2023 14:16:08 103 98-107 (mm ol/L) Final CO2 10/22/2023 14:16:08 24 22-32 (mmo l/L) Final Anion gap 10/22/2023 14:16:08 13 7-15 (mmol /L) Final Glucose 10/22/2023 14:16:08 96 70-120 (mg /dL) Final Albumin 10/22/2023 14:16:08 3.5 Below low normal 3.8 -5.0 (g/dL) Final AST (Aspartate aminotransferase) 10/22/2023 14:16:08 15 10-35 (U/L) Fin al Alk Phos 10/22/2023 14:16:08 65 35-130 (U/ L) Final Bilirubin, Total 10/22/2023 14:16:08 <0.2 <=1 .2 (mg/dL) Final Calcium 10/22/2023 14:16:08 9.7 8.4-10.2 ( mg/dL) Final Protein 10/22/2023 14:16:08 7.7 6.0-8.3 (g /dL) Final ALT (Alanine aminotransferase) 10/22/2023 14:16:08 12 10-35 (U/L) Michael jose Performing Location [facility] [place] [address] [place] [address]
--- OUTSIDE RECORDS SUMMARY | 2023-10-24 07:26 | External Medical Summary | Summary of Care ---
Author Name Unknown Organization [facility] Address [address] [place] [address] Phone [phone] Care Team Providers Care Hand Molder And Caster Name Role Phone Ofelia Garrett MD Primary Care Provider [phone] Reason for Visit * Reason Onset Date Comments Medication Refill 10/22/2023 Encounter Details Date Type Department Care Team (Late st Contact Info) Description 10/22/2023 Refill Hematology/Oncology [facility] [place] [address] [facility] [place] [phone] Rosie Pulido MD 200 [facility] [place] [address] Smoldering multiple myeloma Allergies Active Allergy Reactions Criticality Noted Date [...] bedtime. 0 Active Aspirin 81 MG Oral CapsuleIndications :Smoldering multiple myeloma Take 81 mg by mouth every evening. 90 Capsule 1 10/19/2023 Active dexAMETHasone 4 MG Oral Tablet (Decadron)Indicati ons:Smoldering multiple myeloma Take 10 tablets by mouth once a week 120 Tablet 1 10/19/2023 Active Acyclovir 400 MG Oral Tablet (Zovirax)Indicatio ns:Smoldering multiple myeloma Take 1 Tablet by mouth in the morning and 1 Tablet before bedtime. 180 Tablet 1 10/22/2023 Active Acyclovir 400 MG Oral Tablet (Zovirax)Indicatio ns:Smoldering multiple myeloma Take 1 Tablet by mouth in the morning and 1 Tablet before bedtime. 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 Increased risk for Hereditary Paraganglioma Pheochromocytoma Syndrome. [...] encounter Miscellaneous Notes * Telephone Encounter - Rosie Pulido MD - 10/22/2023 12:52 PM EDT Signed Prescriptions: Disp Refills Acyclovir 400 MG Oral Tablet (Zovirax) 180 Ta*1 Sig: Take 1 Tablet by mouth in the morning and 1 Tablet before bedtime. Authorizing Provider: ROSIE PULIDO * Telephone Encounter - Omar Escobar RN - 10/22/2023 12:45 PM EDT Acyclovir pended, previous script sent to [facility], needs to be local pharmacy. documented in this encounter Plan of Treatment Upcoming Encounters Date Type Department Care Team (Latest Contact Info) Description 10/22/2023 2:10 PM EDT Laboratory Laboratory [facility] [employer] [address] [place] [phone] [facility] [address] [address] [place] [address] 10/22/2023 2:30 PM EDT Office Visit Hematology/Onco logy [facility] [place] [address] [place] [phone] Rosie Pulido MD [address] [place] [address] 10/22/2023 3:15 PM EDT Nurse Only Hematology/Onco logy [facility] [place] [address] [place] [phone] Liliane, Nurse Hem Onc [place] [address] [place] [address] 10/23/2023 1:30 PM EDT Pharmacy Pharmacy Hematology Oncology [place] [address] [place] [address] [facility], [facility] Hem/Onc [address] [place] [address] 11/26/2023 8:00 AM EDT Office Visit Hematology/Onco logy [facility] [place] [address] [place] [phone] Rosie Pulido MD [address] [place] [address] 12/10/2023 8:00 AM EDT Hospital Encounter ENDO [facility], Endoscopy Room [facility] [address] [place] [phone] Adama Dutta MD [address] [place] [address] 12/10/2023 8:00 AM EDT - 12/10/2023 8:45 AM EDT Surgery ENDO [facility], Endoscopy Room [facility] [address] [place] [phone] Adama Dutta MD [address] [place] [address] ESOPHAGOGASTRODUODENOSCOPY (EGD), FLEXIBLE, TRANSORAL, ENDOSCOPIC ULTRASOUND 12/12/2023 9:40 AM EDT Office Visit Dermatology [facility] [address] [place] [address] Meliza Tao PA-C [address] [place] [phone] 05/06/2024 10:00 AM EDT Cardiac Studies Cardiology, [facility] [address] [facility] [place] [address] [place], Pacer Clinic [facility] [address] [place] [address] 07/24/2024 11:00 AM EST Imaging Radiology [address] [place] [address] Scheduled Procedures Name Priority Associated Diagnoses Date/Ti [...] (Season Ended) 2024 05/10/2022, 06/10/2001, 07/02/2000 GFR 09/17/2024 09/17/2023, 06/23, 07/02/2023, Additional history exists DXA Scan 03/10/2026 03/10/2019, [...] encounter Visit Diagnoses Diagnosis Smoldering multiple myeloma Multiple myeloma, without mention of having achieved remission Pancreatic lesion Unspecified disease of pancreas documented in this encounter Care Teams Hand Molder And Caster Relationship Specialty Start Date End Date Ofelia Garrett MD [address] [place] [address] [place] [address] PCP - General 06/21/01 documented as of this encounter
--- OUTSIDE RECORDS SUMMARY | 2023-10-24 07:26 | External Medical Summary ---
Author Name Unknown Address Unknown Organization K09:[facility]ORY [place] [address] Laboratory Report Ordering Provider Test Date Status ASHOK MULLER 10/22/2023 14:16:08 Final Observation Date Value Abnormality Reference (Units ) Status SYNC LEUKOCYTES IN BLOOD BY AUTOMATED COUNT 10/22/2023 14:16:08 7.36 4.00-10.80 (K/uL) Final Segs 10/22/2023 14:16:08 69.3 40.0-75.0 (%) Final Lymphs % 10/22/2023 14:16:08 26.0 18.0-42.0 (%) Final Monos 10/22/2023 14:16:08 4.1 1.0-11.0 (%) Final Eosinophils 10/22/2023 14:16:08 0.5 0.0-6.0 (%) Final Basos 10/22/2023 14:16:08 0.1 0.0-2.0 (%) Final Absolute Segs 10/22/2023 14:16:08 5.10 1.80-7.70 (K/uL) Final Lymphs, absolute 10/22/2023 14:16:08 1.91 1.00-4.80 (K/ul) Final Monos, Abs 10/22/2023 14:16:08 0.30 0.00-1.10 (K/uL) Final Eos, Abs 10/22/2023 14:16:08 0.04 0.00-0.70 (K/uL) Final Basos, Abs 10/22/2023 14:16:08 0.01 0.00-0.20 (K/uL) Final Performing Location [facility] [place] [address]
--- OUTSIDE RECORDS SUMMARY | 2023-10-24 07:26 | External Medical Summary ---
Author Name Unknown Address Unknown Organization K01:LABORATORY [facility] - [address] [place] [address] Laboratory Report Ordering Provider Test Date Status TRISTA MULLERON 10/22/2023 14:16:08 Final Observation Date Value Abnormality Reference (Units ) Status IgG 10/22/2023 14:16:08 1941 Above high normal 70 0-1600 (mg/dL) Final IgA 10/22/2023 14:16:08 11 Below low normal 70- 400 (mg/dL) Final IgM 10/22/2023 14:16:08 10 Below low normal 40- 230 (mg/dL) Final Performing Location LAB[facility] - [address] [place] [address]
--- OUTSIDE RECORDS SUMMARY | 2023-10-24 07:26 | External Medical Summary ---
Author Name Unknown Address Unknown Organization K01:LAB[facility]ATORY [facility] - [address] [place] [address] Laboratory Report Ordering Provider Test Date Status ASHOK MULLER 10/22/2023 14:16:08 Final Observation Date Value Abnormality Reference (Units ) Status Hep B surface Ag 10/22/2023 14:16:08 Negative Neg ative Final Performing Location LAB[facility] - [address] [place] [address]
--- OUTSIDE RECORDS SUMMARY | 2023-10-24 07:26 | External Medical Summary ---
Author Name Unknown Address Unknown Organization K01:LABORATORY [place] [address] [place] [address] Laboratory Report Ordering Provider Test Date Status TRISTA MULLERON 10/22/2023 14:16:08 Final Observation Date Value Abnormality Reference (Units) Status Hepatitis B virus surface Ab [Units/volume] in Serum or Plasma by Immunoassay 10/22/2023 14:16:08 21.3 (mIU/mL) Final Hepatitis B virus surface Ab [Presence] in Serum by Immunoassay 10/22/2023 14:16:08 Positive Final HEPATITIS B SURFACE ANTIBODY, INTERPRETATION 10/22/2023 14:16:08 Immune to Hepatitis B Virus Final POSITIVE: >=11.5 mIU/mL
INDETERMINATE: 8.5-<11.5 mIU/mL
NEGATIVE: <8.5 mIU/mL Performing Location LABORATORY [place] [address] [place] [address]
--- OUTSIDE RECORDS SUMMARY | 2023-10-24 07:26 | External Medical Summary | Summary of Care ---
Author Name Unknown Organization [facility] Address [address] [place] [address] Phone [phone] Care Team Providers Care Chipper Name Role Phone Ofelia Garrett MD Primary Care Provider [phone] Reason for Visit * Reason Comments Follow Up Encounter Details Date Type Department Care Team (Late st Contact Info) Description 10/22/2023 2:30 PM EDT Office Visit Hematology/Oncology 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 Increased risk for Hereditary Paraganglioma Pheochromocytoma Syndrome. [...] Date Smoking Tobacco: Never Smokeless Tobacco: Never Tobacco Cessation:Counseling Given: Not Answered Alcohol Use Standard Drinks/Week Comments No 0 (1 standard drink = 0.6 oz pur e alcohol) Sex and Gender Information Value Date Recorded Sex Assigned at Not on file Gender Identity Not on file Sexual Orientation Not on file Job Start Date Occupation Industry Not on file Not on file Not on file documented as of this encounter Last Filed Vital Signs Vital Sign Reading Time Taken Comments Blood Pressure 175/88 10/22/2023 2:25 PM EDT Pulse 92 10/22/2023 2:25 PM EDT Temperature 37 C (98.6 F) 10/22/2023 2:25 PM EDT Respiratory Rate - - Oxygen Saturation 97% 10/22/2023 2:25 PM EDT Inhaled Oxygen Concentration - - Weight 78.6 kg (173 lb 4.8 oz) 10/22/2023 2:25 P M EDT Height - - Body Mass Index 29.75 10/12/2023 11:22 AM EDT documented in this encounter Progress Notes * Rosie Church MD - 10/22/2023 3:09 PM EDT Outpatient Consult Note Data Source: Patient, Epic record. Data Source: Patient, Epic record. 10/22/2023 3:09 PM Keysha Thomason [id number] 78 year old Patient Encounter: HEMATOLOGY/ONCOLOGY [facility] Cancer Diagnosis: Patient transferred from Dr. 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 Moore and subsequently followed by Dr. Vital now came [facility] for follow-up. Patient was seen by Dr. Tom in Nephrology consultation for evaluation of chronic proteinuria. He ordered labs and she was found to have a very low titer IgG kappa paraprotein. She had bone marrow aspirate and biopsy on 06/21/18 which showed MGUS - 9% plasmocytes on count from bone marrow, slight increase in number of plasma cells on aspirate and normocellular for age on aspirate ME ratio 2: 1 Biopsy slightly hypercellular for age, CD138 stain has an increase in number of plasma cells scattered throughout Impression was MGUS FISH Analysis Plasma Cell Myeloma Panel Results: Abnormal Interpretation: POSITIVE FOR GAINS OF CHROMOSOMES 5, 9, AND 15. Normal results were observed with the 1, 13, 14 (IgH), and 17 (TP53) probe sets. Skeletal survey was done on 10/23/2016 and it was negative for any focal lytic lesions. Shows a chronic degenerative changes She also has a history of renal cell carcinoma status post right nephrectomy in 1997. Repeat Bone marrow biopsy and aspirate done on 09/29/2022 which revealed 34% plasma cells with normal cytogenetics and negative FISH: Diagnosis Monoclonal gammopathy of unknown significance Comment: Routine cytogenetics and FISH studies have been ordered provided there is enough sample toprocess. A separate report will follow at 0845 Clinical History Other - specify in comment[IgG kappa MGUS; r/o multiple myeloma/amyloidosis Bone Marrow Aspirate Microscopic Findings No particles are present. The slides are markedly hypocellular. A rare megakaryocytes noted. Granulopoiesis is adequate an cardiac surgeon. A slight increase in plasma cells is noted. Granulopoiesis is normoblastic. M: E ratio is approximately 2.5:1. Iron Status An iron stain has 2+ positivity. No ring sideroblasts are seen Bone Marrow Biopsy and Clot Microscopic Findings The biopsy is adequate. Overall it is hypocellular for age. Cellularity fat ratio is approximately 20:80. All three cell lines are present however there are small collections of plasma cells in the background. A CD138 stain demonstrates approximately 34% plasma cells. Christoval lambda stains demonstrate a kappa predominant plasma cell population. A thioflavin T stain looking for amyloid is negative. Patient Name: Keysha Thomason Patient / Sex: 1945 / F Specimen Type: Bone Marrow Body Site: Bone Marrow Specimen ID: [id number] Accession / CaseNo: [id number] / [id number] Collection Date: 09/29/2022 01:23:00 PM Received Date: 10/02/2022 11:49:00 AM EDT Report Date: 10/10/2022 09:26:18 AM EST Reason for Referral: IgG kappa MGUS; r/o multiple myeloma/amyloidosis, MONOCLONAL GAMMOPATHY Results: Negative Interpretation: Del(1p): Not Detected Dup(1q): Not Detected Gains(5, 9, 15): Not Detected Del(13q)/-13: Not Detected Del(17p)(TP53): Not Detected IGH(Rearrangement): Not Detected Fluorescence in situ hybridization (FISH) analysis was performed using a Plasma Cell Myeloma probe panel. Karyotype: 46,XX[20] Interpretation: NORMAL FEMALE KARYOTYPE Patient was seen by Dr. Parisi at [facility] for 2nd opinion and he recommended treatment with the triple regimen incorporating daratumumab with lenalidomide plus Decadron which is an ongoing trial. Patient also has nephritic range proteinuria in 24 hour urine collection revealed 4 g of protein. Interval History: Her insurance company has declined for daratumumab since is not approved. Overall clinically she isstable without any new symptoms complain. LABS/IMAGING: Results for orders placed or performed in visit on 10/22/23 COMPREHENSIVE METABOLIC PANEL Result Value Ref Range BUN 24 (H) 6 - 20 mg/dL Creatinine 1.3 (H) 0.5 - 1.0 mg/dL Estimated Glomerular Filtration Rate 44 (L) >=60 mL/min Sodium 140 135 - 146 mmol/L Potassium 3.9 3.5 - 5.1 mmol/L Chloride 103 98 - 107 mmol/L CO2 24 22 - 32 mmol/L Anion Gap 13 7 - 15 mmol/L Glucose 96 70 - 120 mg/dL Albumin 3.5 (L) 3.8 - 5.0 g/dL AST 15 10 - 35 U/L Alkaline Phosphatase 65 35 - 130 U/L Bilirubin, Total <0.2 <=1.2 mg/dL Calcium 9.7 8.4 - 10.2 mg/dL Protein 7.7 6.0 - 8.3 g/dL ALT 12 10 - 35 U/L CBC Result Value Ref Range WBC 7.36 4.00 - 10.80 K/uL RBC 3.61 3.85 - 5.15 M/uL HGB 11.0 (L) 12.0 - 15.3 g/dL HCT 34.5 (L) 36.0 - 45.2 % MCV 95.6 81.5 - 97.5 fL MCH 30.5 27.0 - 34.0 pg MCHC 31.9 32.0 - 36.0 g/dL RDW 15.2 11.5 - 15.5 % PLT 270 140 - 400 K/uL MPV 9.4 6.6 - 11.1 fL DIFFERENTIAL, AUTOMATED Result Value Ref Range WBC 7.36 4.00 - 10.80 K/uL Neutrophils % 69.3 40.0 - 75.0 % Lymphocytes % 26.0 18.0 - 42.0 % Monocytes % 4.1 1.0 - 11.0 % Eosinophils % 0.5 0.0 - 6.0 % Basophils % 0.1 0.0 - 2.0 % Absolute Neutrophils 5.10 1.80 - 7.70 K/uL Absolute Lymphocytes 1.91 1.00 - 4.80 K/ul Absolute Monocytes 0.30 0.00 - 1.10 K/uL Absolute Eosinophils 0.04 0.00 - 0.70 K/uL Absolute Basophils 0.01 0.00 - 0.20 K/uL REVIEW OF SYSTEMS: General: No Fever, chills, night sweats, or weight loss. HEENT: No change in visual acuity, blurred or double vision. No epistaxis, facial pain, nasal discharge or change in hearing. Denies dysphagia, no muscosal ulceration, or sores noted. Cardiovascular: No chest pain, BAY, or palpitations Respiratory: No shortness of breath, cough, hemoptysis, or pleuritic chest pain Gastrointestinal: No abdominal pain, nausea, vomiting, diarrhea, rectal pain or bleeding Genitourinary: Denies Hematuria or dysuria Neurologic: No numbness, weakness, neuropathic pain or change in cognitive function Psychiatric: No vegetative signs of depression Endocrine: No symptoms of hypothyroidism or hyperglycemia Hematologic: No bleeding or lymph nodes noted As mentioned above, all of the systems were reviewed in full and are unremarkable. Past Medical History: Diagnosis Date Calculus of gallbladder without mention of cholecystitis or obstruction Dyslipidemia, goal LDL below 160 dysplastic nevi Generalized anxiety disorder HTN, goal below 140/90 Malignant neoplasm of kidney (HCC) Nontoxic uninodular goiter Proteinuria 07/23 Toxic diffuse goiter Current Outpatient Medications Medication Sig Dispense Refill DAILY MULTIVITAMIN PO TABS 1 tqab daily amLODIPine (NORVASC) 10 MG Tablet Take by mouth daily. Every morning. 1 Cholecalciferol 5000 UNITS TABS Take 5,000 Units by mouth daily. Probiotic Product (PROBIOTIC & ACIDOPHILUS EX ST) Capsule Take 1 Cap by mouth three times a daywith meals. lisinopril (PRINIVIL) 20 MG Tablet Take 1 Tablet by mouth in the morning and 1 Tablet before bedtime. Ezetimibe 10 MG Oral Tablet Take 1 Tablet by mouth in the morning. Takes in the evening. Levothyroxine Sodium 25 MCG Oral Tablet (Levoxyl) Take 1 Tablet by mouth daily first thing in the morning. Gabapentin 100 MG Oral Capsule (Neurontin) TAKE 1 CAPSULE BY MOUTH THREE TIMES A DAY FOR NEUROPATHY Fexofenadine HCl 180 MG Oral Tablet (Christie Allergy) Take 1 Tablet by mouth in the morning. Melatonin 3-10 MG Oral Tablet Take by mouth. Metamucil Free & Natural 43 % Oral Powder (Psyllium) Take by mouth. Docusate Sodium 100 MG Oral Capsule (Stool Softener) Take 1 Capsule by mouth in the morning and 1 Capsule before bedtime. Aspirin 81 MG Oral Capsule Take 81 mg by mouth every evening. 90 Capsule 1 dexAMETHasone 4 MG Oral Tablet (Decadron) Take 10 tablets by mouth once a week 120 Tablet 1 Acyclovir 400 MG Oral Tablet (Zovirax) Take 1 Tablet by mouth in the morning and 1 Tablet before bedtime. 180 Tablet 1 No current facility-administered medications for this visit. Social History Tobacco Use Smoking status: Never Smokeless tobacco: Never Substance Use Topics Alcohol use: No Drug use: No Review of patient's allergies indicates: Allergen Reactions Cardizem [Diltiazem Hcl] Sulfa Antibiotics rash Wound Dressing Adhesive Device implant dressing PHYSICAL EXAMINATION: General Appearance: Healthy appearing patient in no acute distress BP 175/88 (BP Site: Right Arm, BP Position: Sitting, BP Cuff Size: Regular) | Pulse 92 | Temp 37 C (98.6 F) (Tympanic) | Wt 78.6 kg (173 lb 4.8 oz) | SpO2 97% | BMI 29.75 kg/m | BSA 1.88 m Vitals reviewed. No change in the physical examination since last visit. ASSESSMENT: 77-year-old female with history of MGUS IgG kappa currently under follow-up. She was diagnosed in 2017. She had bone marrow biopsy and aspirate done on 06/21/2018 and shows 9% plasmocytes. Bone survey was negative for any lesions. She continues to have fluctuating level of IgG with the increase in the kappa free light chain and kappa and lambda ratio of 30. She had a PET scan done which shows no FDG avid osteolytic lesion. She had repeat bone marrow biopsy and aspirate done which showed 34% plasma cells. FSH was negativeand cytogenetics was normal. She also has history of renal cell carcinoma status post right nephrectomy done in 1997. She has smoldering multiple myeloma with normal cytogenetics and negative FISH. She also had abnormal finding on the pancreas and had upper endoscopic ultrasound and FNA done which is not diagnostic. She has a rising level of kappa light chain with stable IgG level. There were 34% plasma cells on the recent bone marrow biopsy with normal cytogenetics and FISH. She has high-risk smoldering multiple myeloma with more than 20% plasma cells, more than 20% ratio of kappa and lambda light chain and 2 g of IgG level. She also has proteinuria and urine was positive for Bence-Puentes protein. Last PET scan was done on 02/01/2022 and was PLAN: Patient was seen by Dr. Parisi for 2nd opinion and he recommended combination of daratumumab plus lenalidomide and Decadron. Her insurance company has declined the daratumumab biopsy densities not approved.. Discussed with the patient and in detail about diagnosis and prognosis reviewed all the available blood test result with him. Discussed with him about the benefit, risk, side effects toxicity of lenalidomide plus Decadron. After detailed discussion she agreed to proceed with combination of 2 drugs. The patient voiced understanding of all of the above. All questions and concerns were addressed in an apparently satisfactory manner. Rosie Church MD (This note was completed using the dictation program Fluency Direct. As such, there may be misspellings, word substitutions, or other variations that should not change the essence of the clinical content of this encounter note. If there is need for further clarification, please direct questions to me.) documented in this encounter Nursing Notes * aSdia Becerril MED ASSIST - 10/22/2023 2:27 PM EDT Patient identifed by name and birthdate Do you have any concerns about pain management for today's visit? No Living Will or Advance Directive for Health Care as noted on the problem list. [facility] is a way you can talk to your provider on line through e-mail. Would you like to sign up? I can activate it for you? ALREADY ACTIVE Filed Vitals: 10/22/23 1425 BP: 175/88 Pulse: 92 Temp: 37 C (98.6 F) TempSrc: Tympanic SpO2: 97% Weight: 78.6 kg (173 lb 4.8 oz) Patient was instructed to not get up on the exam table/exam chair until directed and assisted by their provider; patient is to remain seated in the chair/ wheelchair/ exam table/ exam chair for fall prevention and safety reasons. Patient is aware to have assistance to step down off exam table/exam chair with personnel. Patient voiced full comprehension of instructions. documented in this encounter Plan of Treatment Upcoming Encounters Date Type Department Care Team (Latest Contact Info) Description 10/23/2023 1:30 PM EDT Pharmacy Pharmacy Hematology Oncology [facility] [address] [place] [address] [facility], [facility] Clinic Hem/Onc [address] [place] [address] 11/26/2023 8:00 AM EDT Office Visit Hematology/Oncol [place] [address] [place] [phone] Rosie Church MD [address] [place] [address] 12/10/2023 8:00 AM EDT Hospital Encounter ENDO OSS, Endoscopy Room [facility] [address] [place] [phone] Adama Dutta MD [address] [place] [address] 12/10/2023 8:00 AM EDT - 12/10/2023 8:45 AM EDT Surgery ENDO [facility], Endoscopy Room [facility] [address] [place] [phone] Adama Dutta MD [address] [place] [address] ESOPHAGOGASTRODUODENOSCOPY (EGD), FLEXIBLE, TRANSORAL, ENDOSCOPIC ULTRASOUND 12/12/2023 9:40 AM EDT Office Visit Dermatology [facility] [address] [place] [address] Meliza Tao PA-C [address] [place] [phone] 05/06/2024 10:00 AM EDT Cardiac Studies Cardiology, [facility] [address] [facility] [place] [address] [place], Pacer Clinic [facility] [address] [place] [address] 07/24/2024 11:00 AM EST Imaging Radiology [address] [place] [address] Scheduled Procedures Name Priority Associated Diagnoses Date/Ti [...] EKG FOR HTN 08/01/2021 COVID-19 Vaccine ( - 2022- season) 2023 TSH 02/24/2024 02/23/2023, [...] this encounter Visit Diagnoses Diagnosis Smoldering multiple myeloma- Primary Multiple myeloma, without mention of having achieved remission Encounter for antineoplastic chemotherapy Pancreatic lesion Unspecified disease of pancreas documented in this encounter Care Teams Chipper Relationship Specialty Start Date End Date Ofelia Garrett MD [address] [place] [address] [place] [address] PCP - General 06/21/01 documented as of this encounter"
--- OUTSIDE RECORDS SUMMARY | 2023-10-24 07:26 | External Medical Summary | Summary of Care ---
Author Name Unknown Organization [facility] Address [address] [place] [address] Phone [phone] Care Team Providers Care Biztalk Software Developer Name Role Phone Ofelia Garrett MD Primary Care Provider [phone] -[phone] Reason for Visit * Reason Comments Outpatient Testing Encounter Details Date Type Department Care Team (Late st Contact Info) Description 10/22/2023 2:10 PM EDT Laboratory [facility] [place] [address] [place] [phone] [place], Lab Scenery [address] [place] [address] Smoldering multiple myeloma (SMM); Screening for viral disease Allergies Active Allergy Reactions Criticality Noted Date [...] SDHB gene variant (c.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 Increased risk for Hereditary Paraganglioma Pheochromocytoma Syndrome. [...] on file documented as of this encounter Plan of Treatment Upcoming Encounters Date Type Department Care Team (Latest Contact Info) Description 10/22/2023 3:15 PM EDT Nurse Only Hematology/Oncol linette [place] [address] [place] [phone] [place], Nurse Hem Onc [facility] [address] [place] [address] Arrived 10/23/2023 1:30 PM EDT Pharmacy Pharmacy Hematology Oncology [place] [address] [place] [address] [facility], [facility] Hem/Onc [address] [place] [address] 11/26/2023 8:00 AM EDT Office Visit Hematology/Oncol linette [place] [address] [place] [phone] Rosie Church MD [address] [place] [address] 12/10/2023 8:00 AM EDT Hospital Encounter ENDO [facility], Endoscopy Room [facility] [address] [place] [phone] Adama Dutta MD [address] [place] [address] 12/10/2023 8:00 AM EDT - 12/10/2023 8:45 AM EDT Surgery ENDO [facility], Endoscopy Room [facility] [address] [place] [phone] Adama Dutta MD [address] [place] [address] ESOPHAGOGASTRODUODENOSCOPY (EGD), FLEXIBLE, TRANSORAL, ENDOSCOPIC ULTRASOUND 12/12/2023 9:40 AM EDT Office Visit Dermatology [facility] [address] [place] [address] Meliza Tao PA-C [address] [place] [phone] 05/06/2024 10:00 AM EDT Cardiac Studies Cardiology, [facility] [address] [place] [address] [place], Pacer Clinic [facility] [address] [place] [address] 07/24/2024 11:00 AM EST Imaging Radiology [address] [place] [address] Pending Results Name Type Priority Associated Diagnoses Date /Time [id number], SERUM Lab Routine Smoldering multiple myeloma (SMM) 10/22/2023 2:16 PM EDT IMMUNOGLOBULIN QUANTITATIVE Lab STAT Smoldering multiple myeloma (SMM) 10/22/2023 2:16 PM EDT COMPREHENSIVE METABOLIC PANEL Lab STAT Smoldering multiple myeloma (SMM) 10/22/2023 2:16 PM EDT SERUM FREE LIGHT CHAINS Lab STAT Smoldering multiple myeloma (SMM) 10/22/2023 2:16 PM EDT SERUM PROTEIN ELECTROPHORESIS REFLEX PROFILE Lab STAT Smoldering multiple myeloma (SMM) 10/22/2023 2:16 PM EDT HEPATITIS B SURFACE ANTIGEN Lab Routine Screening for viral disease 10/22/2023 2:16 PM EDT HEPATITIS B CORE ANTIBODIES IGG AND IGM Lab Routine Screening for viral disease 10/22/2023 2:16 PM EDT HEPATITIS B SURFACE ANTIBODY Lab Routine Screening for viral disease 10/22/2023 2:16 PM EDT Scheduled Procedures Name Priority Associated Diagnoses Date/Ti [...] Screening Discontinued Fecal Occult Blood Test Discontinued 02/23/20 21, 06/03/2010, 08/24/2008 Cologuard Discontinued Colonoscopy Discontinued GARDASIL-HPV [...] Not on filedocumented as of this encounter Procedures Procedure Name Priority Date/Time Associated Diagnosis Comments DIFFERENTIAL, AUTOMATED STAT 10/22/2023 2:16 PM EDT Smoldering multiple myeloma (SMM) CBC STAT 10/22/2023 2:16 PM EDT Smoldering multiple myeloma (SMM) CBC STAT 10/22/2023 2:16 PM EDT Smoldering multiple myeloma (SMM) documented in this encounter Results * DIFFERENTIAL, AUTOMATED (10/22/2023 2:16 PM EDT) Pathologist [facility] WBC 7.36 4.00 - 10.80 K/uL 10/22/2023 2:26 PM EDT LABORATORY [facility] 56-02 Neutrophils % 69.3 40.0 - 75.0 % 10/22/2023 2:26 PM EDT [facility] 56-02 Lymphocytes % 26.0 18.0 - 42.0 % 10/22/2023 2:26 PM EDT [facility] 56-02 Monocytes % 4.1 1.0 - 11.0 % 10/22/2023 2:26 PM EDT LABORATORY [facility] 56-02 Eosinophils % 0.5 0.0 - 6.0 % 10/22/2023 2:26 PM EDT LABORATORY [facility] 56-02 Basophils % 0.1 0.0 - 2.0 % 10/22/2023 2:26 PM EDT LABORATORY [facility] 56-02 Absolute Neutrophils 5.10 1.80 - 7.70 K/uL 10/22/2023 2:26 PM EDT [facility] 56-02 Absolute Lymphocytes 1.91 1.00 - 4.80 K/ul 10/22/2023 2:26 PM EDT [facility] 56-02 Absolute Monocytes 0.30 0.00 - 1.10 K/uL 10/22/2023 2:26 PM EDT [facility] 56 Absolute Eosinophils 0.04 0.00 - 0.70 K/uL 10/22/2023 2:26 PM EDT [facility] 56 Absolute Basophils 0.01 0.00 - 0.20 K/uL 10/22/2023 2:26 PM EDT [facility] 56 Blood Venous blood specimen / Unknown Venipuncture / Unknown 10/22/2023 2:16 PM EDT 10/22/2023 2:16 PM EDT Rosie Church MD LAB BLOOD ORDERA BLES [facility] [address] [place] [address] * (ABNORMAL) CBC (10/22/2023 2:16 PM EDT) WBC 7.36 4.00 - 10.80 K/uL 10/22/2023 2:26 PM EDT [facility] 56 RBC 3.61 3.85 - 5.15 M/uL 10/22/2023 2:26 PM EDT [facility] 56 HGB 11.0(L) 12.0 - 15.3 g/dL 10/22/2023 2:26 PM EDT [facility] 56 HCT 34.5(L) 36.0 - 45.2 % 10/22/2023 2:26 PM EDT [facility] 56 MCV 95.6 81.5 - 97.5 fL 10/22/2023 2:26 PM EDT [facility] 56 MCH 30.5 27.0 - 34.0 pg 10/22/2023 2:26 PM EDT [facility] 56 MCHC 31.9 32.0 - 36.0 g/dL 10/22/2023 2:26 PM EDT [facility] 56 RDW 15.2 11.5 - 15.5 % 10/22/2023 2:26 PM EDT [facility] PLT 270 140 - 400 K/uL 10/22/2023 2:26 PM EDT [facility] MPV 9.4 6.6 - 11.1 fL 10/22/2023 2:26 PM EDT [facility] Blood Venous blood specimen / Unknown Venipuncture / Unknown 10/22/2023 2:16 PM EDT 10/22/2023 2:16 PM EDT Rosie Church MD LAB BLOOD [facility] [address] [place] [address] documented in this encounter Visit Diagnoses Diagnosis Smoldering multiple myeloma (SMM) Multiple myeloma, without mention of having achieved remission Screening for viral disease Special screening examination for unspecified viral disease Pancreatic lesion Unspecified disease of pancreas documented in this encounter Care Teams Biztalk Software Developer Relationship Specialty Start Date End Date Ofelia Garrett MD [address] [place] [address] [place] [address] PCP - General 06/21/01 documented as of this encounter
--- OUTSIDE RECORDS SUMMARY | 2023-10-24 07:26 | External Medical Summary | Summary of Care ---
Author Name Unknown Organization [facility] Address [address] [place] [address] Phone [phone] Care Team Providers Care Contract Graphic Designer Name Role Phone Ofelia Garrett MD Primary Care Provider [phone] [phone] Reason for Visit * Reason Onset Date Comments Advice 10/18/2023 Dr. Church Encounter Details Date Type Department Care Team (Late st Contact Info) Description 10/18/2023 Refill Hematology/Oncology [facility] [address] [facility] [place] [address] Services, Scheduling [address] [place] [address] Smoldering multiple myeloma Allergies Active Allergy Reactions Criticality Noted Date Comments Diltiazem Hcl 10/20/2008 Sulfa Antibiotics 01/17/2001 rash Wound Dressing Adhesive 03/23/2023 Device implant dressing documented as of this encounter (statuses as of 10/19/2023) Medications Medication Sig Dispensed Refills Start Date [...] and 1 Capsule before bedtime. 0 Active Acyclovir 400 MG Oral Tablet (Zovirax)Indications :Smoldering multiple myeloma Take 1 Tablet by mouth in the morning and 1 Tablet before bedtime. 180 Tablet 1 10/12/2023 Active dexAMETHasone 4 MG Oral Tablet (Decadron)Indication s:Smoldering multiple myeloma Take 10 tablets by mouth the day after treatment. 120 Tablet 0 10/16/2023 Active Aspirin 81 MG Oral CapsuleIndications:S moldering multiple myeloma Take 81 mg by mouth every evening. 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 Increased risk for Hereditary Paraganglioma Pheochromocytoma Syndrome. [...] as of this encounter (statuses as of 10/19/2023) Resolved Problems Problem Noted Date Diagnosed Date Resolved Date dysplastic nevi 08/04/2002 07/21/2015 HTN, goal below 140/90 12/21 PURE HYPERCHOLESTEROLEM 06/22 Overview: Per Lipid Taxonomy. documented as of this encounter (statuses as of 10/19/2023) Immunizations Name Administration Dates Next Due Influenza, [...] as of this encounter Miscellaneous Notes * Addendum Note - Kal Jacinto RN - 10/19/2023 10:07 AM EDTAddended by: KAL JACINTO on: 10/19/2023 10:07 AM Modules accepted: Orders * Telephone Encounter - Kal Jacinto RN - 10/19/2023 10:05 AM EDT This should have gone to local pharmacy. * Telephone Encounter - Margaret Crocker OSA - 10/18/2023 11:42 AM EDT Juana with [facility] called for clarification on the dexamethasone and aspirin prescriptions they received. She advised they need clarification on the directions for the dexamethasone and clarification on the drug form for the aspirin. Please contact Juana at [phone] & she provided a reference number of [id number]. Thank you. documented in this encounter Plan of Treatment Upcoming Encounters Date Type Department Care Team (Latest Contact Info) Description 10/22/2023 2:10 PM EDT Laboratory Laboratory [facility] [place] [address] [place] [phone] Liliane, Lab [facility] [address] [facility] [place] [address] 10/22/2023 2:30 PM EDT Office Visit Hematology/Onco logy [facility] [place] [address] [place] [phone] Rosie Church MD [address] [place] [address] 10/22/2023 3:15 PM EDT Nurse Only Hematology/Onco logy [facility] [place] [address] [phone] Liliane, Nurse Hem Onc [facility] [address] [place] [address] [address] 10/23/2023 1:30 PM EDT Pharmacy Pharmacy Hematology Oncology [place] [address] [place] [address] [facility], [facility] Hem/Onc [facility] [place] [address] 11/26/2023 8:00 AM EDT Office Visit Hematology/Onco logy [facility] [place] [phone] Rosie Church MD [address] [place] [place] [address] 12/10/2023 8:00 AM EDT Hospital Encounter ENDO [facility], Endoscopy Room [facility] [address] [place] [phone] Adama Dutta MD [address] [place] [address] 12/10/2023 8:00 AM EDT - 12/10/2023 8:45 AM EDT Surgery ENDO [facility], Endoscopy Room [facility] [address] [place] [phone] Adama Dutta MD [address] [place] [address] ESOPHAGOGASTRODUODENOSCOPY (EGD), FLEXIBLE, TRANSORAL, ENDOSCOPIC ULTRASOUND 12/12/2023 9:40 AM EDT Office Visit Dermatology [facility] [address] [place] [address] Meliza Tao PA-C [address] [place] [phone] 05/06/2024 10:00 AM EDT Cardiac Studies Cardiology, [facility] [address] [place] [address] [facility] [address] [place] [address] 07/24/2024 11:00 AM EST Imaging Radiology [address] [place] [address] Scheduled Procedures Name Priority Associated Diagnoses Date/Ti [...] 08/01/2021 COVID-19 Vaccine (1 - season) 2023 Influenza Vaccine (FLU shot) (#1) 2023 05/10/2022, 06/10/2001, 07/02/2000 TSH 02/24/2024 02/23/2023, 09/20, 06/06/2021, Additional history exists GFR 09/17/2024 09/17/2023, 06/23, 07/02/2023, Additional history [...] pancreas documented in this encounter Care Teams Contract Graphic Designer Relationship Specialty Start Date End Date Ofelia Garrett MD [address] [place], [place] [address] [address] PCP - General 06/21/01 documented as of this encounter
--- OUTSIDE RECORDS SUMMARY | 2023-10-24 07:26 | External Medical Summary | Summary of Care ---
Author Name Unknown Organization [facility] Address [address] [place] [address] Phone [phone] Care Team Providers Care Portable Grinding Machine Operator Name Role Phone Ofelia Garrett MD Primary Care Provider [phone] Reason for Visit * Reason Onset Date Comments Medication Refill 10/22/2023 Encounter Details Date Type Department Care Team (Late st Contact Info) Description 10/22/2023 Refill Hematology/Oncology [facility] [place] 200 [facility] [phone] Rosie Pulido MD 200 [facility] [place] [address] Smoldering multiple myeloma Allergies Active Allergy Reactions [...] SDHB gene variant (c.286+2 T>A) detected via [employer]. Increased risk for Hereditary Paraganglioma Pheochromocytoma Syndrome. [...] State [employer] [address] [place] [phone] Liliane Lab [address] [place] [address] 10/22/2023 2:30 PM EDT Office Visit Hematology/Onco logy [facility] [place] [address] [place] [phone] Rosie Pulido MD [address] [place] [address] 10/22/2023 3:15 PM EDT Nurse Only Hematology/Onco logy [facility] [place] [address] [place] [phone] Liliane, Nurse Hem Onc [facility] [address] [place] [address] 10/23/2023 1:30 PM EDT Pharmacy Pharmacy Hematology Oncology [place] [address] [place] [address] [facility], [facility] Hem/Onc [address] [place] [address] 11/26/2023 8:00 AM EDT Office Visit Hematology/Onco logy [facility] [place] [address] [place] [address] Rosie Pulido MD [address] [place] [address] 12/10/2023 8:00 AM EDT Hospital Encounter ENDO [facility], Endoscopy Room [facility] [address] [place] [phone] Adama Dutta MD [address] [place] [address] 12/10/2023 8:00 AM EDT - 12/10/2023 8:45 AM EDT Surgery ENDO [facility], Endoscopy Room [facility] [address] [place] [phone] Adama Dutta MD [address] [place] [address] ESOPHAGOGASTRODUODENOSCOPY (EGD), FLEXIBLE, TRANSORAL, ENDOSCOPIC ULTRASOUND 12/12/2023 9:40 AM EDT Office Visit Dermatology [facility] [address] [place] [address] Meliza Tao PA-C [address] [place] [phone] 05/06/2024 10:00 AM EDT Cardiac Studies Cardiology, [facility] 132 [facility] [place] [address] [place] [address] [place] [address] 07/24/2024 11:00 AM EST Imaging Radiology [address] [place] [address] Scheduled Procedures Name Priority Associated Diagnoses Date/Ti [...] pancreas documented in this encounter Care Teams Portable Grinding Machine Operator Relationship Specialty Start Date End Date Ofelia Garrett MD [address] [place] [address] [place] [address] PCP - General 06/21/01 documented as of this encounter
--- OUTSIDE RECORDS SUMMARY | 2023-10-24 07:26 | External Medical Summary ---
Author Name Unknown Address Unknown Organization K09:[facility] [address] Laboratory Report Ordering Provider Test Date Status ASHOK MULLER 10/22/2023 14:16:08 Final Observation Date Value Abnormality Reference (Units ) Status WBC, Total 10/22/2023 14:16:08 7.36 4.00-10.8 0 (K/uL) Final RBC 10/22/2023 14:16:08 3.61 3.85-5.15 (M/uL) Final Hemoglobin 10/22/2023 14:16:08 11.0 Below low normal 12 .0-15.3 (g/dL) Final HCT 10/22/2023 14:16:08 34.5 Below low normal 36. 0-45.2 (%) Final MCV 10/22/2023 14:16:08 95.6 81.5-97.5 (fL) Final MCH 10/22/2023 14:16:08 30.5 27.0-34.0 (pg) Final MCHC 10/22/2023 14:16:08 31.9 32.0-36.0 (g/dL) Final RDW 10/22/2023 14:16:08 15.2 11.5-15.5 (%) Final Platelets 10/22/2023 14:16:08 270 140-400 (K /uL) Final MPV 10/22/2023 14:16:08 9.4 6.6-11.1 ( fL) Final Performing Location [facility] [place] [address]
--- OUTSIDE RECORDS SUMMARY | 2023-10-24 07:26 | External Medical Summary ---
Author Name Unknown Address Unknown Organization K01:[facility] - [address] [place] [address] Laboratory Report Ordering Provider Test Date Status YOHANAASHOK 10/22/2023 14:16:08 Final Observation Date Value Abnormality Reference (Units ) Status Hepatitis B virus core Ab [Presence] in Serum 10/22/2023 14:16:08 Negative Negative Final Performing Location [facility] - [address] [place] [address]
--- OUTSIDE RECORDS SUMMARY | 2023-10-24 07:27 | External Medical Summary | Summary of Care ---
Author Name Unknown Organization [facility] Address [address] [place] [address] Phone [phone] Care Team Providers Care Education Research Analyst Name Role Phone Ofelia Garrett MD Primary Care Provider [phone] Reason for Visit * Reason Onset Date Comments Medication Refill 10/16/2023 [facility] Encounter Details Date Type Department Care Team (Late st Contact Info) Description 10/16/2023 Refill Hematology/Oncology [facility] 200 [facility] [place] [phone] Rosie Church MD [address] [place] [address] Smoldering multiple myeloma Allergies Active Allergy Reactions [...] 0 Active Acyclovir 400 MG Oral Tablet (Zovirax)Indicatio ns:Smoldering multiple myeloma Take 1 Tablet by mouth in the morning and 1 Tablet before bedtime. 180 Tablet 1 10/12/2023 Active dexAMETHasone 4 MG Oral Tablet (Decadron)Indicati ons:Smoldering multiple myeloma Take 10 tablets by mouth the day after treatment. 120 Tablet 0 10/16/2023 Active Aspirin 81 MG Oral CapsuleIndications :Smoldering multiple myeloma Take 81 mg by mouth every evening. 90 Capsule 1 10/16/2023 Active Aspirin 81 MG Oral CapsuleIndications :Smoldering multiple myeloma Take 81 mg by mouth every evening. 90 Capsule 1 10/12/2023 4 Discontinue d(Refill) dexAMETHasone 4 MG Oral Tablet (Decadron)Indicati ons:Smoldering multiple myeloma Take 10 tablets by mouth the day after treatment. 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 Increased risk for Hereditary Paraganglioma Pheochromocytoma Syndrome. [...] Telephone Encounter - Tricia Jacinto RN - 10/17/2023 8:11 AM EDTSigned Prescriptions: Disp Refills dexAMETHasone 4 MG Oral Tablet (Decadron) 120 Ta*0 Sig: Take 10 tablets by mouth the day after treatment.Authorizing Provider: AKIKO TONY Aspirin 81 MG Oral Capsule 90 Cap*1 Sig: Take 81 mg by mouth every evening.Authorizing Provider: AKIKO TONY * Telephone Encounter - Hyacinth Ruffin LPN - 10/16/2023 3:58 PM EDT Two refill requests with clarification comments from [facility] for the following medications; Aspirin 81 mg capsules: "These are available in Chewables and regular tablets:" Please send new prescription specifying which, chewables or regular tablets. Dexamethasone 4 mg, tablets: Please send new prescription with "Frequency" added to the sig. Prescriptions pended below. documented in this encounter Plan of Treatment Upcoming Encounters Date Type Department Care Team (Latest Contact Info) Description 10/22/2023 2:10 PM EDT Laboratory Laboratory [facility] [place] [address] [place], [place] [address] Liliane Lab [place] [address] [address] [place] [address] 10/22/2023 2:30 PM EDT Office Visit Hematology/Onco logy [facility] [place] [address] [place] [address] Rosie Church MD 200 [facility] [place], [place] [address] 10/22/2023 3:15 PM EDT Nurse Only Hematology/Onco logy [facility] [place] [address] [place], [place] [address] Liliane, Nurse Hem Onc [place] [address] [address] [place], [place] [address] 10/23/2023 1:30 PM EDT Pharmacy Pharmacy Hematology Oncology [facility] [address] [place] [address] [facility], [facility] Hem/Onc [address] [facility] [place] [address] 11/26/2023 8:00 AM EDT Office Visit Hematology/Onco logy [facility] [place] [address] [place] [phone] Rosie Church MD [address] [place] [address] 12/10/2023 8:00 AM EDT Hospital Encounter ENDO [facility], Endoscopy Room [facility] [address] [place] [phone] Adama Dutta MD [address] [place] [address] 12/10/2023 8:00 AM EDT - 12/10/2023 8:45 AM EDT Surgery ENDO [facility], Endoscopy Room [facility] [address] [place] [phone] Adama Dutta MD [address] [place] [address] ESOPHAGOGASTRODUODENOSCOPY (EGD), FLEXIBLE, TRANSORAL, ENDOSCOPIC ULTRASOUND 12/12/2023 9:40 AM EDT Office Visit Dermatology [facility] [place] [address] [place] [address] Meliza Tao PA-C [address] [place] [phone] 05/06/2024 10:00 AM EDT Cardiac Studies Cardiology, [facility] [address] [place] [address] [facility] [address] [place] [address] 07/24/2024 11:00 AM EST Imaging Radiology [address] [place] [address] Scheduled Procedures Name Priority Associated Diagnoses Date/Ti [...] FOR HTN 08/01/2021 COVID-19 Vaccine ( - season) 2023 Influenza Vaccine (FLU shot) [...] pancreas documented in this encounter Care Teams Education Research Analyst Relationship Specialty Start Date End Date Ofelia Grarett MD [address] [place] [address] [place] [address] PCP - General 06/21/01 documented as of this encounter
--- OUTSIDE RECORDS SUMMARY | 2023-10-24 07:27 | External Medical Summary | Summary of Care ---
Author Name Unknown Organization [facility] Address [address] [place] [address] Phone [phone] Care Team Providers Care Senior Courtroom Clerk Name Role Phone Ofelia Garrett MD Primary Care Provider [phone] Reason for Visit * Reason Comments Medication Management Encounter Details Date Type Department Care Team (Late st Contact Info) Description 10/17/2023 1:30 PM EDT Pharmacy Pharmacy Hematology Oncology [facility] [address] [place] [address] [facility] Hem/Onc [address] [place], [place] [id number] Smoldering multiple myeloma* Allergies Active Allergy Reactions Criticality Noted Date Comments Diltiazem Hcl 10/20/2008 Sulfa Antibiotics 01/17/2001 rash Wound Dressing Adhesive 03/23/2023 Device implant dressing documented as of this encounter (statuses as of 10/18/2023) Medications Medication Sig Dispensed Refills Start Date [...] as of this encounter (statuses as of 10/18/2023) Active Problems Problem Noted Date Diagnosed Date 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 Increased risk for Hereditary Paraganglioma Pheochromocytoma Syndrome. [...] as of this encounter (statuses as of 10/18/2023) Resolved Problems Problem Noted Date Diagnosed Date Resolved Date dysplastic nevi 08/04/2002 07/21/2015 HTN, goal below 140/90 12/21 PURE HYPERCHOLESTEROLEM 06/22 Overview: Per Lipid Taxonomy. documented as of this encounter (statuses as of 10/18/2023) Immunizations Name Administration Dates Next Due Seasonal [...] as of this encounter Progress Notes * Earlene Bey RPh - 10/18/2023 10:19 AM EDT MTM to follow up 10/22 to assess baseline hepatitis B panel and sent lenalidomide RX to [facility] if appropriate Earlene Bey, RodrickD, BCOP Clinical Pharmacist, [facility] Oral Chemotherapy [facility] 10/18/2023, 10:19 AM * Karen Quezada, showroom salesperson - 10/17/2023 12:30 PM EDT MEDICATION THERAPY MANAGEMENT LENALIDOMIDE TREATMENT STATUS NOTE Keysha Thomason [phone] Patient Phone Numbers Communication: Chart review TTreatment: Medication: Lenalidomide (Revlimid) Indication/Staging/Diagnosis Code: Smoldering Multiple Myeloma / D47.2 Dose: 10mg daily D1-21 every 28 days Administration: +/- food Start Date: TBD Primary Motor Coach Supervisor/Oncologist: Dr. Church Assessment and Plan: Yes/no Date Action Taken Sperry plan entered? yes 10/12/23 Consent completed? yes 10/10/23 Intro/med rec completed? yes 10/15/23 Precert completed? yes 10/16/23 Approved Test claim completed? yes 10/16/23 Rx to [facility] Specialty Pharmacy Financial assistance needed? NA Physician signature? yes 10/16/23 Rx released? no Education completed? [facility] will contact patient once med shipped/received to complete medication education Please refer to initial intake note for detailed review of regimen and patient- specific education points Karen Quezada showroom salesperson Qualitative Researcher Hematology Oncology Oral Chemotherapy Clinic Medication Therapy Disease Management [facility] 10/17/23,12:38 PM Time Spent on Encounter: < 5 minutes Encounter Group: Hematology Encounter Interventions Item Category: Oral Chemotherapy Lenalidomide documented in this encounter Plan of Treatment Upcoming Encounters Date Type Department Care Team (Latest Contact Info) Description 10/22/2023 2:10 PM EDT Laboratory Laboratory [facility] [place] [address] [place] [phone] Liliane Lab [place] 200 [facility] [place] [address] 10/22/2023 2:30 PM EDT Office Visit Hematology/Onco logy [facility] [place] [place] [address] [place] [phone] Rosie Church MD [address] [place] [address] 10/22/2023 3:15 PM EDT Nurse Only Hematology/Onco logy State Debra [place] [address] [place] [phone] [place], Nurse Hem Onc [place] [address] [place] [address] 10/23/2023 1:30 PM EDT Pharmacy Pharmacy Hematology Oncology [facility] [address] [place] [address] [facility] Hem/Onc [address] [facility] [place] [address] 11/26/2023 8:00 AM EDT Office Visit Hematology/Onco logy [facility] [place] [address] [place] [phone] Rosie Church MD [address] [place] [address] 12/10/2023 8:00 AM EDT Hospital Encounter ENDO [facility], Endoscopy Room [facility] [address] [place] [phone] Adama Dutta MD [address] [place] [address] 12/10/2023 8:00 AM EDT - 12/10/2023 8:45 AM EDT Surgery ENDO [facility], Endoscopy Room [facility] [address] [place] [phone] Adama Dutta MD [address] [place] [address] ESOPHAGOGASTRODUODENOSCOPY (EGD), FLEXIBLE, TRANSORAL, ENDOSCOPIC ULTRASOUND 12/12/2023 9:40 AM EDT Office Visit Dermatology [facility] [place] [address] [place] [address] Meliza Tao PA-C [address] [place] [phone] 05/06/2024 10:00 AM EDT Cardiac Studies Cardiology, [facility] [address] [place] [address] [facility] [address] [place] [address] 07/24/2024 11:00 AM EST Imaging Radiology [address] [place] [address] Scheduled Procedures Name Priority Associated Diagnoses Date/Ti [...] HTN 08/01/2021 COVID-19 Vaccine ( season) 2023 Influenza Vaccine (FLU shot) (#1) [...] pancreas documented in this encounter Care Teams Senior Courtroom Clerk Relationship Specialty Start Date End Date Ofelia Garrett MD [address] [place] [address] [place] [address] PCP - General 06/21/01 documented as of this encounter
--- OUTSIDE RECORDS SUMMARY | 2023-10-24 07:27 | External Medical Summary | Summary of Care ---
Author Name Unknown Organization [facility] Address [address] [place] [address] Phone [phone] Care Team Providers Care Solution Design Engineer Name Role Phone Ofelia Garrett MD Primary Care Provider [phone] [phone] Reason for Visit * Reason Onset Date Comments Medication Refill 10/16/2023 [facility] Encounter Details Date Type Department Care Team (Late st Contact Info) Description 10/16/2023 Refill Hematology/Oncology [facility] [address] [place] [phone] Rosie Church MD [address] [place] [address] Smoldering multiple myeloma Allergies Active Allergy Reactions Criticality Noted Date Comments Diltiazem Hcl 10/20/2008 Sulfa Antibiotics 01/17/2001 rash Wound Dressing Adhesive 03/23/2023 Device implant dressing documented as of this encounter (statuses as of 10/16/2023) Medications Medication Sig Dispensed Refills Start Date [...] as of this encounter (statuses as of 10/16/2023) Active Problems Problem Noted Date Diagnosed Date 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 Increased risk for Hereditary Paraganglioma Pheochromocytoma Syndrome. [...] as of this encounter (statuses as of 10/16/2023) Resolved Problems Problem Noted Date Diagnosed Date Resolved Date dysplastic nevi 08/04/2002 07/21/2015 HTN, goal below 140/90 12/21 PURE HYPERCHOLESTEROLEM 06/22 Overview: Per Lipid Taxonomy. documented as of this encounter (statuses as of 10/16/2023) Immunizations Name Administration Dates Next Due Seasonal [...] encounter Miscellaneous Notes * Telephone Encounter - Hyacinth Ruffin LPN - 10/16/2023 3:58 PM EDT Two refill requests with clarification comments from [facility] for the following medications; Aspirin 81 mg capsules: "These are available in Chewables and regular tablets:" Please send new prescription specifying which, chewables or regular tablets. Dexamethasone 4 mg, tablets: Please send new prescription with "Frequency" added to the sig. Prescriptions pended below. documented in this encounter Plan of Treatment Upcoming Encounters Date Type Department Care Team (Latest Contact Info) Description 10/17/2023 1:30 PM EDT Pharmacy Pharmacy Hematology Oncology [facility] [address] [place] [address] c, [facility] Hem/Onc [address] [place] [address] 10/22/2023 2:10 PM EDT Laboratory Laboratory [place] Debra Wagner [address] [place] [phone] Liliane, Lab Scenery [address] [place] [address] 10/22/2023 2:30 PM EDT Office Visit Hematology/Onco logy [place] Debra Wagner [address] [place] [phone] Rosie Church MD [address] [place] [address] 10/22/2023 3:15 PM EDT Nurse Only Hematology/Onco logy [place] Debra Wagner [address] [place] [phone] Liliane, Nurse Hem Onc Scenery [address] [place] [address] 11/26/2023 8:00 AM EDT Office Visit Hematology/Onco logy [place] Debra Wagner [address] [place] [phone] Rosie hCurch MD [address] [place] [address] 12/10/2023 8:00 AM EDT Hospital Encounter ENDO OSS[facility], Endoscopy Room [address] [place] [phone] Adama Dutta MD [address] [place] [address] 12/10/2023 8:00 AM EDT - 12/10/2023 8:45 AM EDT Surgery ENDO OSSC, Endoscopy Room O[facility] [address] [place] [phone] Aadma Dutta MD [address] [place] [address] ESOPHAGOGASTRODUODENOSCOPY (EGD), FLEXIBLE, TRANSORAL, ENDOSCOPIC ULTRASOUND 12/12/2023 9:40 AM EDT Office Visit Dermatology [facility] [address] [place] [address] Meliza Tao PA-C [address] [place] [phone] 05/06/2024 10:00 AM EDT Cardiac Studies Cardiology, [facility] [address] [place] [address] Gamal Jeff [facility] [address] [place] [address] 07/24/2024 11:00 AM EST Imaging Radiology [address] [place] [address] Scheduled Procedures Name Priority Associated Diagnoses Date/Ti [...] pancreas documented in this encounter Care Teams Solution Design Engineer Relationship Specialty Start Date End Date Ofelia Garrett MD [address] [place] [address] [place] [address] PCP - General 06/21/01 documented as of this encounter
--- OUTSIDE RECORDS SUMMARY | 2023-10-24 07:27 | External Medical Summary | Summary of Care ---
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 Increased risk for Hereditary Paraganglioma Pheochromocytoma Syndrome. [...] 10/16/2023) Immunizations Name Administration Dates Next Due Influenza, [...] encounter Miscellaneous Notes * Telephone Encounter - Cornelia Mcginnis OSA [...] when determination is received. Susan Wilkinson Medication Inhalation Therapy Aides Teacher P: [phone] F: [phone] 10/15/2023,3:27 PM * Telephone Encounter - Tricia Jacinto RN - 10/15/2023 2:42 PM EDT Please still move forward with auth for revlimid. Thanks! * Telephone Encounter - Mallory Rodriguez OSA - 10/15/2023 9:19 AM EDT Darzalex was denied. If revlimid is needed please send to [employer] [id number] * Telephone Encounter - Omar Escobar RN - 10/12/2023 3:57 PM EDT Pt ht added into chart, please update referral. * Addendum Note - Omar Escobar RN - 10/12/2023 11:53 AM EDTAddended by: OMAR ESCOBAR on: 10/12/2023 11:53 AM Modules accepted: Orders * Telephone Encounter - Omar Escobar RN - 10/11/2023 2:59 PM EDT [place] plan built and routed for signature. Will await auth. - Nurse education scheduled 10/16/23 - Consent signed: 10/10/23 - Standing lab orders placed: CBCd, CMP prior to each treatment, [place], SPEP, Ig once a month - Meds ordered: Dexamethasone, Aspirin 81mg, Acyclovir 400mg MTM- [facility] documented in this encounter Plan of Treatment Upcoming Encounters Date Type Department Care Team (Latest Contact Info) Description 10/17/2023 1:30 PM EDT Pharmacy Pharmacy Hematology Oncology [place] [address] [place] [address] [facility] Hem/Onc [address] [place] [address] 10/22/2023 2:10 PM EDT Laboratory Laboratory [facility] Liliane [place] [address] [place] [phone] Liliane, Lab Scenery [address] [place] [address] 10/22/2023 3:15 PM EDT Nurse Only Hematology/Onco logy [facility] Liliane [place] [address] [place] [phone] Liliane, Nurse Hem Onc Scenery [address] [place] [address] 11/26/2023 8:00 AM EDT Office Visit Hematology/Onco logy [facility] Liliane [place] [address] [place] [phone] Rosie Church MD [address] [place] [address] 12/10/2023 8:00 AM EDT Hospital Encounter ENDO OSSC, Endoscopy Room OSS [address] [place] [phone] Adama Dutta MD [address] [place] [address] 12/10/2023 8:00 AM EDT - 12/10/2023 8:45 AM EDT Surgery ENDO OSSC, Endoscopy Room [facility] [address] [place] [phone] Adama Dutta MD [address] [place] [address] ESOPHAGOGASTRODUODENOSCOPY (EGD), FLEXIBLE, TRANSORAL, ENDOSCOPIC ULTRASOUND 12/12/2023 9:40 AM EDT Office Visit Dermatology [facility] [address] [place] [address] Meliza Tao PA-C [address] [place] [phone] 05/06/2024 10:00 AM EDT Cardiac Studies Cardiology, [facility] [address] [place] [address] [place], Pacer Clinic [facility] [place] [address] 07/24/2024 11:00 AM EST Imaging Radiology [address] [place] [address] Scheduled Procedures Name Priority Associated Diagnoses Date/Ti [...] FOR HTN 08/01/2021 COVID-19 Vaccine (1 - 2022-24 season) 2023 Influenza Vaccine (FLU shot) (#1) [...] pancreas documented in this encounter Care Teams Military Aircraft Designer Relationship Specialty Start Date End Date Ofelia Garrett MD [address] [place] [address] [place] [address] PCP - General 06/21/01 documented as of this encounter
--- OUTSIDE RECORDS SUMMARY | 2023-10-24 07:27 | External Medical Summary | Summary of Care ---
Author Name Unknown Organization [facility] Address [address] [place] [address] Phone [phone] Care Team Providers Care Senior Environmental Consultant Name Role Phone Ofelia Garrett MD Primary Care Provider [phone] [phone] Reason for Visit * Reason Onset Date Comments Advice 10/18/2023 Dr. Church Encounter Details Date Type Department Care Team (Late st Contact Info) Description 10/18/2023 Telephone Hematology/Oncology [facility] [address] [place] [phone] Services, Scheduling [address] [place] [address] Advice (Dr. 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 Increased risk for Hereditary Paraganglioma Pheochromocytoma Syndrome. [...] 10/19/2023) Immunizations Name Administration Dates Next Due Seasonal [...] encounter Miscellaneous Notes * Telephone Encounter - Margaret Crocker OSA - 10/18/2023 11:42 AM EDT Juana with [facility] called for clarification on the dexamethasone and aspirin prescriptions they received. She advised they need clarification on the directions for the dexamethasone and clarification on the drug form for the aspirin. Please contact Juana at [phone] & she provided a reference number of [id number]. Thank you. documented in this encounter Plan of Treatment Upcoming Encounters Date Type Department Care Team (Latest Contact Info) Description 10/22/2023 2:10 PM EDT Laboratory Laboratory [place] Debra Wagner [address] [place] [address] [phone] Florentino Momin [address] [place] [address] [address] 10/22/2023 2:30 PM EDT Office Visit Hematology/Onco logy Bhavani M[place] [address] [place], [place] [phone] Rosie Church MD [address] [place], [place] [address] 10/22/2023 3:15 PM EDT Nurse Only Hematology/Onco logy Bhavani Momin [place] [address] [place], [place] [phone] [place], Nurse Hem Onc Scenery [address] [place] [address] 10/23/2023 1:30 PM EDT Pharmacy Pharmacy Hematology Oncology [place] [address] [place] [address] [facility], [facility] Hem/Onc [facility] [place] [address] 11/26/2023 8:00 AM EDT Office Visit Hematology/Onco logy Bhavani Momin [place] [address] [place], [place] [phone] Rosie Church MD [address] [place], [place] [address] 12/10/2023 8:00 AM EDT Hospital Encounter ENDO OSSC, Endoscopy Room [facility] [address] [place] [phone] Adama Dutta MD [address] [place] [address] 12/10/2023 8:00 AM EDT - 12/10/2023 8:45 AM EDT Surgery ENDO O[facility], Endoscopy Room [facility] [address] [place] [phone] Adama Dutta MD [address] [place] [address] ESOPHAGOGASTRODUODENOSCOPY (EGD), FLEXIBLE, TRANSORAL, ENDOSCOPIC ULTRASOUND 12/12/2023 9:40 AM EDT Office Visit Dermatology [facility] [address] [place] [address] Meliza Tao PA-C [address] [place] [phone] 05/06/2024 10:00 AM EDT Cardiac Studies Cardiology, [facility] [place] [address] Movluis antonio Pacer [facility] [address] [facility] [place] [address] 07/24/2024 11:00 AM EST Imaging Radiology [address] [place] [address] Scheduled Procedures Name Priority Associated Diagnoses Date/Ti [...] as of this encounter Care Teams Senior Environmental Consultant Relationship Specialty Start Date End Date Ofelia Garrett MD [address] [place] [address] [place] [address] PCP - General 06/21/01 documented as of this encounter
--- OUTSIDE RECORDS SUMMARY | 2023-10-24 07:27 | External Medical Summary | Summary of Care ---
Author Name Unknown Organization [facility] Address [address] [place] [address] Phone [phone] Care Team Providers Care Motor Bus Driver Name Role Phone Ofelia Garrett MD Primary Care Provider [phone] [phone] Reason for Visit * Reason Comments Medication Management Encounter Details Date Type Department Care Team (Late st Contact Info) Description 10/15/2023 1:15 PM EDT Pharmacy Pharmacy Hematology Oncology [facility] [address] [place] [address] [facility] Hem/Onc [address] [place], [place] [phone] Smoldering multiple myeloma* Allergies Active Allergy Reactions [...] bedtime. 0 Active Aspirin 81 MG Oral CapsuleIndications: Smoldering multiple myeloma Take 81 mg by mouth every evening. 90 Capsule 1 10/12/2023 Active Additional Information Patient not taking.Reported on 10/15/2023 Acyclovir 400 MG Oral Tablet (Zovirax)Indication s:Smoldering multiple myeloma Take 1 Tablet by mouth in the morning and 1 Tablet before bedtime. 180 Tablet 1 10/12/2023 Active dexAMETHasone 4 MG Oral Tablet (Decadron)Indicatio ns:Smoldering multiple myeloma Take 10 tablets by mouth the day after treatment. 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 Increased risk for Hereditary Paraganglioma Pheochromocytoma Syndrome. [...] as of this encounter Progress Notes * Karen Quezada, sleeping car conductor - 10/15/2023 8:16 AM EDT NEW REFERRAL TO ORAL CHEMO CLINIC/MEDICATION RECONCILIATION NOTE Keysha Thomason [id number] Patient Phone Numbers Communication: Spoke to: Patient: OCC brochure sent via [employer]. 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 Church Provider has consented patient: Yes Patient was introduced to Oral Chemotherapy Clinic: OCC is a free service for patients receiving oral chemo therapy. We are Pharmacists & Pharmacy Technicians, who are a part of hematology & oncology care across the [facility] system offering telephone based appointments from the comfort of your own home. Pharmacists are available Sunday-Sunday from 8am - 4:30pm. After 4:30pm, non- urgent messages can be left on the pharmacist voicemail, and urgent calls/questions/concerns should be directed to their oncologist office directly. In case of an emergency, patient is aware to call 911 or travel to nearest emergency department. Communicated to patient: Pharmacists will provide education about your medication, manage oral chemotherapy side effects & review labs. All information will be shared & available to your oncologist. Explained to patient: once they decide on a treatment with their Oncologist, a Pharmacist will review the treatment plan to ensure correct dosing, review labs & medications to prevent any interactions. Medication authorization is submitted to your insurance. Once approved, your Rx will be sent to the Pharmacy determined by your insurance plan. Specialty Pharmacy will contact you to arrange delivery & discuss co-payment and any assistance options, if required. A Pharmacist will contact you to provide medication education, follow up periodically to review lab results & to assess/manage side effects. Patient was reassured the process to obtain medication can take several days-weeks. PA pending Patient was informed that hepatitis B screening must be completed prior to initiation of treatment.Patient will have labs drawn tomorrow, 10/16/23 prior to nurse chemo counseling appointment. Patient has given verbal consent that staff from the Oral Chemotherapy Clinic can speak to John Thomason & Daughter Bethany Carmona regarding their treatment. Patient has given verbal consent that staff from the Oral Chemotherapy Clinic can leave a voicemailwith treatment-related information: Yes This information can be left on Performed medication reconciliation with patient; pharmacist will be in touch if there are any druginteractions with oral chemo. Patient voiced understanding on all accounts. MICHAEL Sanchez Tech Ladle Pourer Hematology Oncology Oral Chemotherapy Clinic Medication Therapy Disease Management [facility] 10/15/23,2:22 PM Time Spent on Encounter: 16 - 20 minutes Encounter Group: Hematology Encounter Interventions Item Category: Oral Chemotherapy Lenalidomide Problem/Rationale: Safety: Needs additional monitoring - Medication Requires monitoring Pharmacist Intervention(s): Medication reconciliation Magnitude of Intervention: Monitoring with no interventions (Level 0) documented in this encounter Plan of Treatment Upcoming Encounters Date Type Department Care Team (Latest Contact Info) Description 10/16/2023 1:15 PM EDT Laboratory Laboratory State Debra Wagner [address] [place] [phone] Liliane Lab Scenery [address] [place] [address] 10/16/2023 1:45 PM EDT Nurse Only Hematology/Onco logy [place] Debra Wagner [address] [place] [phone] Liliane, Nurse Hem Onc [facility] [address] [place] [address] [address] 10/17/2023 1:30 PM EDT Pharmacy Pharmacy Hematology Oncology [address] [address] [facility], [facility] Clinic Hem/Onc [facility] [place] [address] 11/26/2023 8:00 AM EDT Office Visit Hematology/Onco logy [place] Debra Wagner [address] [place], [place] [phone] Rosie Church MD [address] [place], [place] [address] 12/10/2023 8:00 AM EDT Hospital Encounter ENDO OSSC, Endoscopy Room [facility] [address] [place] [phone] Adama Dutta MD [address] [place] [address] 12/10/2023 8:00 AM EDT - 12/10/2023 8:45 AM EDT Surgery ENDO OSSC, Endoscopy Room [facility] [address] [place] [place] [phone] Adama Dutta MD [address] [place] [address] ESOPHAGOGASTRODUODENOSCOPY (EGD), FLEXIBLE, TRANSORAL, ENDOSCOPIC ULTRASOUND 12/12/2023 9:40 AM EDT Office Visit Dermatology [facility] [address] [place] [address] Meliza Tao PA-C [address] [place] [phone] 05/06/2024 10:00 AM EDT Cardiac Studies Cardiology, [facility] 132 [facility] [place] [address] [place], Pacer Clinic [facility] [place] [address] 07/24/2024 11:00 AM EST Imaging Radiology [address] [place] [address] Scheduled Procedures Name Priority Associated Diagnoses Date/Ti [...] COVID-19 Vaccine (1 - 2022- season) 2023 Influenza Vaccine (FLU shot) (#1) [...] pancreas documented in this encounter Care Teams Motor Bus Driver Relationship Specialty Start Date End Date Ofelia Garrett MD [address] [place] [address] [place] [address] PCP - General 06/21/01 documented as of this encounter
--- OUTSIDE RECORDS SUMMARY | 2023-10-24 07:27 | External Medical Summary | Summary of Care ---
Author Name Unknown Organization [facility] Address [address] [place] [address] Phone [phone] Care Team Providers Care Duty Manager Name Role Phone Ofelia Garrett MD Primary Care Provider [phone] Reason for Visit * Reason Onset Date Comments Advice 10/18/2023 Dr. Church Encounter Details Date Type Department Care Team (Late st Contact Info) Description 10/18/2023 Telephone Hematology/Oncology [facility] [address] [place] [phone] Services, Scheduling [address] [place] [address] Advice (Dr. 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 Increased risk for Hereditary Paraganglioma Pheochromocytoma Syndrome. [...] - 10/18/2023 11:42 AM EDT Juana with [facility] called for clarification on the dexamethasone and aspirin prescriptions they received. She advised they need clarification on the directions for the dexamethasone and clarification on the drug form for the aspirin. Please contact Juana at [phone] & she provided a reference number of [id number]. Thank you. documented in this encounter Plan of Treatment Upcoming Encounters Date Type Department Care Team (Latest Contact Info) Description 10/22/2023 2:10 PM EDT Laboratory Laboratory [place] Debra Wagner [address] [place] [phone] Florentino Momin [address] [place] [address] [address] 10/22/2023 2:30 PM EDT Office Visit Hematology/Onco logy Bhavani Momin [place] [address] [place], [place] [phone] Rosie Church MD [address] [place], [place] [address] 10/22/2023 3:15 PM EDT Nurse Only Hematology/Onco logy Bhavani Momin [place] [address] [place], [place] [phone] [place], Nurse Hem Onc Scenery [address] [place] [address] 10/23/2023 1:30 PM EDT Pharmacy Pharmacy Hematology Oncology [place] [address] [place] [address] [facility] Hem/Onc [facility] [place] [address] 11/26/2023 8:00 AM EDT Office Visit Hematology/Onco logy Bhavani Momin [place] [address] [place], [place] [phone] Rosie Church MD [address] [place], [place] [address] 12/10/2023 8:00 AM EDT Hospital Encounter ENDO OSSC, Endoscopy Room [facility] [address] [place] [phone] Adama Dutta MD [address] [place] [address] 12/10/2023 8:00 AM EDT - 12/10/2023 8:45 AM EDT Surgery ENDO OSSC, Endoscopy Room [facility] [address] [place] [phone] Adama Dutta MD [address] [place] [address] ESOPHAGOGASTRODUODENOSCOPY (EGD), FLEXIBLE, TRANSORAL, ENDOSCOPIC ULTRASOUND 12/12/2023 9:40 AM EDT Office Visit Dermatology [facility] [address] [place] [address] Meliza Tao PA-C [address] [place] [phone] 05/06/2024 10:00 AM EDT Cardiac Studies [facility]iology, [facility] [place] [address] Movluis antonio Pacer [facility] [address] [facility] [place] [address] 07/24/2024 11:00 AM EST Imaging Radiology [address] [place] [address] Scheduled Procedures Name Priority Associated Diagnoses Date/Ti [...] filedocumented as of this encounter Care Teams Duty Manager Relationship Specialty Start Date End Date Ofelia Garrett MD [address] [place] [address] [place] [address] PCP - General 06/21/01 documented as of this encounter
--- OUTSIDE RECORDS SUMMARY | 2023-10-24 07:27 | External Medical Summary | Summary of Care ---
Author Name Unknown Organization [facility] Address [address] [place] [address] Phone [phone] Care Team Providers Care Maintenance Mechanic Telephone Name Role Phone Ofelia Garrett MD Primary Care Provider [phone] [phone] Reason for Visit * Reason Onset Date Comments Precert Future 10/11/2023 Gian lujan Encounter Details Date Type Department Care Team (Late st Contact Info) Description 10/11/2023 Telephone Hematology/Oncology [facility] [address] [place] [address] Mick Haji MD [address] [place] [address] Precert Future (Gian lujan) Allergies Active Allergy Reactions Criticality Noted Date Comments Diltiazem Hcl 10/20/2008 Sulfa Antibiotics 01/17/2001 rash Wound Dressing Adhesive 03/23/2023 Device implant dressing documented as of this encounter (statuses as of 10/15/2023) Medications Medication Sig Dispensed Refills Start Date [...] as of this encounter (statuses as of 10/15/2023) Active Problems Problem Noted Date Diagnosed Date 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 Increased risk for Hereditary Paraganglioma Pheochromocytoma Syndrome. [...] as of this encounter (statuses as of 10/15/2023) Resolved Problems Problem Noted Date Diagnosed Date Resolved Date dysplastic nevi 08/04/2002 07/21/2015 HTN, goal below 140/90 12/21 PURE HYPERCHOLESTEROLEM 06/22 Overview: Per Lipid Taxonomy. documented as of this encounter (statuses as of 10/15/2023) Immunizations Name Administration Dates Next Due Influenza, [...] encounter Miscellaneous Notes * Telephone Encounter - Susan Wilkinson OSA - 10/15/2023 3:27 PM EDT Submitted today. Will update when determination is received. Susan Wilkinson Medication Psychiatric Secretary P: [phone] F: [phone] 10/15/2023,3:27 PM * Telephone Encounter - Tricia Jacinto RN - 10/15/2023 2:42 PM EDT Please still move forward with auth for revlimid. Thanks! * Telephone Encounter - Mallory Rodriguez OSA - 10/15/2023 9:19 AM EDT Darzalex was denied. If revlimid is needed please send to [employer] pool [phone] * Telephone Encounter - Omar Escobar RN - 10/12/2023 3:57 PM EDT Pt ht added into chart, please update referral. * Addendum Note - Omar Escobar RN - 10/12/2023 11:53 AM EDTAddended by: OMAR ESCOBAR on: 10/12/2023 11:53 AM Modules accepted: Orders * Telephone Encounter - Omar Escobar RN - 10/11/2023 2:59 PM EDT [place] plan built and routed for signature. Will await auth. - Nurse education scheduled 10/16/23 - Consent signed: 10/10/23 - Standing lab orders placed: CBCd, CMP prior to each treatment, [place], SPEP, Ig once a month - Meds ordered: Dexamethasone, Aspirin 81mg, Acyclovir 400mg MTM- FYI documented in this encounter Plan of Treatment Upcoming Encounters Date Type Department Care Team (Latest Contact Info) Description 10/16/2023 1:15 PM EDT Laboratory Laboratory Bhavani Momin [place] [address] [place] [phone] Liliane Lab [facility] 200 [facility] [place] [address] 10/16/2023 1:45 PM EDT Nurse Only Hematology/Onco logy Bhavani Momin [place] [address] [place] [address] Liliane Nurse Hem Onc [facility] [address] [place] [address] 10/17/2023 1:30 PM EDT Pharmacy Pharmacy Hematology Oncology [address] [address] [facility] Hem/Onc [address] [place] [address] 11/26/2023 8:00 AM EDT Office Visit Hematology/Onco logy [facility] [address] [place] [phone] Rosie Church MD [address] [place] [address] 12/10/2023 8:00 AM EDT Hospital Encounter ENDO OSSC, Endoscopy Room [facility] [address] [place] [phone] Adama Dutta MD [address] [place] [address] 12/10/2023 8:00 AM EDT - 12/10/2023 8:45 AM EDT Surgery ENDO [facility], Endoscopy Room [facility] [address] [place] [address] Adama Dutta MD [address] [place] [address] ESOPHAGOGASTRODUODENOSCOPY (EGD), FLEXIBLE, TRANSORAL, ENDOSCOPIC ULTRASOUND 12/12/2023 9:40 AM EDT Office Visit Dermatology [facility] [address] [place] [address] Meliza Tao PA-C 200 [facility] [place] [address] 05/06/2024 10:00 AM EDT Cardiac Studies Cardiology, [facility] [address] [place] [address] Gamal Jeff [facility] [address] [place] [address] 07/24/2024 11:00 AM EST Imaging Radiology [address] [place] [address] Scheduled Procedures Name Priority Associated Diagnoses Date/Ti [...] pancreas documented in this encounter Care Teams Maintenance Mechanic Telephone Relationship Specialty Start Date End Date Ofelia Garrett MD [address] [place] [address] [place] [address] PCP - General 06/21/01 documented as of this encounter
--- OUTSIDE RECORDS SUMMARY | 2023-10-24 07:27 | External Medical Summary | Summary of Care ---
Author Name Unknown Organization [facility] Address [address] [place] [address] Phone [phone] Care Team Providers Care Hay Rake Operator Name Role Phone Ofelia Garrett MD Primary Care Provider [phone] -[phone] Reason for Visit * Reason Onset Date Comments Precert Future 10/11/2023 Gian lujan Encounter Details Date Type Department Care Team (Late st Contact Info) Description 10/11/2023 Telephone Hematology/Oncology [facility] [address] [place] [address] Mick Haji MD [address] [place] [address] Precert Future (Gian lujan) Allergies Active Allergy [...] SDHB gene variant (c.286+2 T>A) detected via [employer]. Increased risk for Hereditary Paraganglioma Pheochromocytoma Syndrome. [...] when determination is received. Susan Wilkinson Medication Director Underwriter Sales P: [phone] F: [phone] 10/15/2023,3:27 PM * Telephone Encounter - Tricia Jacinto RN - 10/15/2023 2:42 PM EDT Please still move forward with auth for revlimid. Thanks! * Telephone Encounter - Mallory Rodriguez OSA - 10/15/2023 9:19 AM EDT Darzalex was denied. If revlimid is needed please send to [facility] [phone] * Telephone Encounter - Omar Escobar RN - 10/12/2023 3:57 PM EDT Pt ht added into chart, please update referral. * Addendum Note - Omar Escobar RN - 10/12/2023 11:53 AM EDTAddended by: OMAR ESCOBAR on: 10/12/2023 11:53 AM Modules accepted: Orders * Telephone Encounter - Omar Escobar RN - 10/11/2023 2:59 PM EDT [place] plan built and routed for signature. Will await auth. - Nurse education scheduled 10/16/23 - Consent signed: 10/10/23 - Standing lab orders placed: CBCd, CMP prior to each treatment, [place], SPEP, Ig once a month - Meds ordered: Dexamethasone, Aspirin 81mg, Acyclovir 400mg MTM- FYI documented in this encounter Plan of Treatment Upcoming Encounters Date Type Department Care Team (Latest Contact Info) Description 10/16/2023 1:15 PM EDT Laboratory Laboratory Bhavani Momin [place] [address] [place] [address] Liliane Lab [facility] [address] [place] [address] 10/16/2023 1:45 PM EDT Nurse Only Hematology/Onco logy [place] Debra Wagner [address] [place] [address] Liliane, Nurse Hem Onc [facility] [address] [place], [place] [address] 10/17/2023 1:30 PM EDT Pharmacy Pharmacy Hematology Oncology [address] [address] [facility] Hem/Onc [facility] [place] [address] 11/26/2023 8:00 AM EDT Office Visit Hematology/Onco logy [place] Debra [place] [address] [place], [place] [address] Rosie Church MD [address] [place] [address] 12/10/2023 8:00 AM EDT Hospital Encounter ENDO OSSC, Endoscopy Room [facility] [address] [place] [phone] Adama Dutta MD [address] [place] [address] 12/10/2023 8:00 AM EDT - 12/10/2023 8:45 AM EDT Surgery ENDO [facility], Endoscopy Room [facility] [address] [place] [phone] Adama Dutta MD [address] [place] [address] ESOPHAGOGASTRODUODENOSCOPY (EGD), FLEXIBLE, TRANSORAL, ENDOSCOPIC ULTRASOUND 12/12/2023 9:40 AM EDT Office Visit Dermatology [facility] [address] [place] [address] Meliza Tao PA-C [address] [place] [address] 05/06/2024 10:00 AM EDT Cardiac Studies Cardiology, [facility] [address] [place] [address] [place], Pacer Clinic [facility] [address] [place] [address] 07/24/2024 11:00 AM EST Imaging Radiology [address] [place] [address] Scheduled Procedures Name Priority Associated Diagnoses Date/Ti [...] pancreas documented in this encounter Care Teams Hay Rake Operator Relationship Specialty Start Date End Date Ofelia Garrett MD [address] [place] [address] [place] [address] PCP - General 06/21/01 documented as of this encounter
--- OUTSIDE RECORDS SUMMARY | 2023-10-24 07:28 | External Medical Summary | Summary of Care ---
Author Name Unknown Organization [facility] Address [address] [place] [address] Phone [phone] Care Team Providers Care Sales Engagement Executive Name Role Phone Ofelia Garrett MD Primary Care Provider [phone] [phone] Encounter Details Date Type Department Care Team (Late st Contact Info) Description 10/12/2023 Orders Only Hematology/Oncology, [facility] [address] [place] [address] Rosie Church MD 200 [place] [address] Allergies Active Allergy Reactions Criticality Noted Date Comments Diltiazem Hcl 10/20/2008 Sulfa Antibiotics 01/17/2001 rash Wound Dressing Adhesive 03/23/2023 Device implant dressing documented as of this encounter (statuses as of 10/12/2023) Medications Medication Sig Dispensed Refills Start Date [...] every evening. 90 Capsule 1 10/12/2023 Active Acyclovir 400 MG Oral Tablet (Zovirax)Indications :Smoldering multiple myeloma Take 1 Tablet by mouth in the morning and 1 Tablet before bedtime. 180 Tablet 1 10/12/2023 Active dexAMETHasone 4 MG Oral Tablet (Decadron)Indication s:Smoldering multiple myeloma Take 10 tablets by mouth the day after treatment. 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 Increased risk for Hereditary Paraganglioma Pheochromocytoma Syndrome. [...] as of this encounter (statuses as of 10/12/2023) Resolved Problems Problem Noted Date Diagnosed Date Resolved Date dysplastic nevi 08/04/2002 07/21/2015 HTN, goal below 140/90 12/21 PURE HYPERCHOLESTEROLEM 06/22 Overview: Per Lipid Taxonomy. documented as of this encounter (statuses as of 10/12/2023) Immunizations Name Administration Dates Next Due Seasonal [...] Department Care Team (Latest Contact Info) Description 10/15/2023 1:15 PM EDT Pharmacy Pharmacy Hematology Oncology [address] [address] [facility] Hem/Onc [address] [place] [address] 10/16/2023 1:45 PM EDT Nurse Only Hematology/Oncol linette Momin [place] [address] [place] [address] Liliane, Nurse Hem Onc Bhavani [address] [place] [address] 10/17/2023 1:30 PM EDT Pharmacy Pharmacy Hematology Oncology [address] [address] [facility] Hem/Onc [address] [place] [address] [place] [address] 11/26/2023 8:00 AM EDT Office Visit Hematology/Oncol ogy [facility] [address] [place] [phone] Rosie Church MD [address] [place] [address] 12/10/2023 8:00 AM EDT Hospital Encounter ENDO OSSC, Endoscopy Room [facility] [address] [place] [phone] Adama Dutta MD [address] [place] [address] 12/10/2023 8:00 AM EDT - 12/10/2023 8:45 AM EDT Surgery ENDO [facility], Endoscopy Room [facility] [address] [place] [phone] Adama Dutta MD [address] [place] [address] ESOPHAGOGASTRODUODENOSCOPY (EGD), FLEXIBLE, TRANSORAL, ENDOSCOPIC ULTRASOUND 12/12/2023 9:40 AM EDT Office Visit Dermatology [facility] [address] [place] [address] Meliza Tao PA-C [address] [place] [address] 05/06/2024 10:00 AM EDT Cardiac Studies Cardiology, [facility] [address] [place] [address] Gamal Jeff [facility] [address] [place] [address] 07/24/2024 11:00 AM EST Imaging Radiology [address] [place] [address] Scheduled Procedures Name Priority Associated Diagnoses Date/Ti [...] filedocumented as of this encounter Care Teams Sales Engagement Executive Relationship Specialty Start Date End Date Ofelia Garrett MD [address] [place], [place] [address] [place] [address] PCP - General 06/21/01 documented as of this encounter
--- OUTSIDE RECORDS SUMMARY | 2023-10-24 07:28 | External Medical Summary | Summary of Care ---
Author Name Unknown Organization [facility] Address [address] [place] [address] Phone [phone] Care Team Providers Care Chemical Pathologist Name Role Phone Ofelia Garrett MD Primary Care Provider +1 -[phone] Reason for Visit * Reason Onset Date Comments Precert Future 10/11/2023 Gian Encounter Details Date Type Department Care Team (Late st Contact Info) Description 10/11/2023 Telephone Hematology/Oncology [facility] 200 [facility] [place] [address] Mick Haji MD [address] [place] [address] Precert Future (Gian) Allergies Active Allergy Reactions Criticality Noted Date [...] SDHB gene variant (c.286+2 T>A) detected via [employer]. Increased risk for Hereditary Paraganglioma Pheochromocytoma Syndrome. [...] 10/12/2023) Immunizations Name Administration Dates Next Due Influenza, [...] Escobar RN - 10/11/2023 2:59 PM EDT [place] plan built and routed for signature. Will await auth. - Nurse education scheduled 10/16/23 - Consent signed: 10/10/23 - Standing lab orders placed: CBCd, CMP prior to each treatment, [place], SPEP, Ig once a month - Meds ordered: Dexamethasone, Aspirin 81mg, Acyclovir 400mg MTM- FYI documented in this encounter Plan of Treatment Upcoming Encounters Date Type Department Care Team (Latest Contact Info) Description 10/15/2023 1:15 PM EDT Pharmacy Pharmacy Hematology Oncology [address] [address] [facility] Hem/Onc [address] [place] [address] 10/16/2023 1:45 PM EDT Nurse Only Hematology/Oncol [place] Debra Garcia [address] [place] [phone] Liliane, Nurse Hem Onc [facility] [address] [place] [address] 10/17/2023 1:30 PM EDT Pharmacy Pharmacy Hematology Oncology [address] [address] [facility] Hem/Onc [address] [place] [address] 11/26/2023 8:00 AM EDT Office Visit Hematology/Oncol [place] Debra Landaverde [address] [place] [phone] Rosie Church MD [address] [place] [address] 12/10/2023 8:00 AM EDT Hospital Encounter ENDO OSSC, Endoscopy Room [facility] [address] [place] [phone] Adama Dutta MD [address] [place] [address] 12/10/2023 8:00 AM EDT - 12/10/2023 8:45 AM EDT Surgery ENDO OSSC, Endoscopy Room [facility] [address] [place] [phone] Adama Dutta MD [address] [place] [address] ESOPHAGOGASTRODUODENOSCOPY (EGD), FLEXIBLE, TRANSORAL, ENDOSCOPIC ULTRASOUND 12/12/2023 9:40 AM EDT Office Visit Dermatology [facility] [address] [place] [address] Meliza Tao PA-C [address] [place] [phone] 05/06/2024 10:00 AM EDT Cardiac Studies Cardiology, [facility] [address] [place] [address] [place], Pacer Clinic [facility] [address] [place] [address] 07/24/2024 11:00 AM EST Imaging Radiology [address] [place] [address] Scheduled Procedures Name Priority Associated Diagnoses Date/Ti [...] pancreas documented in this encounter Care Teams Chemical Pathologist Relationship Specialty Start Date End Date Ofelia Garrett MD [address] [place] [address] [place] [address] PCP - General 06/21/01 documented as of this encounter
--- OUTSIDE RECORDS SUMMARY | 2023-10-24 07:28 | External Medical Summary | Summary of Care ---
Author Name Unknown Organization [facility] Address [address] [place] [address] Phone [phone] Care Team Providers Care Ratchet Setter Name Role Phone Ofelia Garrett MD Primary Care Provider +1 -[phone] Reason for Visit * Reason Onset Date Comments Precert Future 10/11/2023 Gian lujan Encounter Details Date Type Department Care Team (Late st Contact Info) Description 10/11/2023 Telephone Hematology/Oncology [facility] [address] [place] [address] Mick Haji MD [address] [place] [address] Precert Future (Gian lujan) Allergies Active Allergy [...] SDHB gene variant (c.286+2 T>A) detected via [employer]. Increased risk for Hereditary Paraganglioma Pheochromocytoma Syndrome. [...] encounter Miscellaneous Notes * Telephone Encounter - Mallory Rodriguez OSA - 10/15/2023 9:19 AM EDT Darzalex was denied. If revlimid is needed please send to oral pool [phone] * Telephone Encounter - Omar Escobar RN - 10/12/2023 3:57 PM EDT Pt ht added into chart, please update referral. * Addendum Note - Omar Escobar RN - 10/12/2023 11:53 AM EDTAddended by: OMAR ESCOBAR on: 10/12/2023 11:53 AM Modules accepted: Orders * Telephone Encounter - Omar Escobar RN - 10/11/2023 2:59 PM EDT [place] plan built and routed for signature. Will await auth. - Nurse education scheduled 10/16/23 - Consent signed: 3/20/24 - Standing lab orders placed: CBCd, CMP prior to each treatment, [place], SPEP, Ig once a month - Meds ordered: Dexamethasone, Aspirin 81mg, Acyclovir 400mg [facility] documented in this encounter Plan of Treatment Upcoming Encounters Date Type Department Care Team (Latest Contact Info) Description 10/15/2023 1:15 PM EDT Pharmacy Pharmacy Hematology Oncology [address] [address] [facility] Hem/Onc [address] [place] [address] 10/16/2023 1:45 PM EDT Nurse Only Hematology/Oncol [place] Debra Landaverde [address] [place] [phone] Liliane, Nurse Hem Onc [facility] 200 [facility] [place] [address] 10/17/2023 1:30 PM EDT Pharmacy Pharmacy Hematology Oncology [address] [address] [facility] [place] Hem/Onc [address] [place] [address] 11/26/2023 8:00 AM EDT Office Visit Hematology/Oncol ogState Dbera Garcia [address] [place] [phone] Rosie Church MD [address] [place] [address] 12/10/2023 8:00 AM EDT Hospital Encounter ENDO OSS[facility], Endoscopy Room [facility] [address] [place] [phone] Adama Dutta MD [address] [place] [address] 12/10/2023 8:00 AM EDT - 12/10/2023 8:45 AM EDT Surgery ENDO [facility], Endoscopy Room [facility] [address] [place] [phone] Adama Dutta MD [address] [place] [address] ESOPHAGOGASTRODUODENOSCOPY (EGD), FLEXIBLE, TRANSORAL, ENDOSCOPIC ULTRASOUND 12/12/2023 9:40 AM EDT Office Visit Dermatology [facility] [address] [place] [address] Meliza Tao PA-C [address] [place] [phone] 05/06/2024 10:00 AM EDT Cardiac Studies Cardiology, [facility] [address] [place] [address] [place], Pacer [facility] [address] [place] [address] 07/24/2024 11:00 AM EST Imaging Radiology [address] [place] [address] Scheduled Procedures Name Priority Associated Diagnoses Date/Ti [...] *BASELINE EKG FOR HTN 08/01/2021 COVID-19 Vaccine (2022-24 season) 2023 Influenza Vaccine (FLU shot) (#1) [...] pancreas documented in this encounter Care Teams Ratchet Setter Relationship Specialty Start Date End Date Ofelia Garrett MD [address] [place] [address] [place] [address] PCP - General 06/21/01 documented as of this encounter
--- OUTSIDE RECORDS SUMMARY | 2023-10-24 07:28 | External Medical Summary | Summary of Care ---
Author Name Unknown Organization [facility] Address [address] [place] [address] Phone [phone] Care Team Providers Care Environmental Remediation Engineer Name Role Phone Ofelia Garrett MD Primary Care Provider [phone] [phone] Reason for Visit * Reason Onset Date Comments Precert Future 10/11/2023 Gian lujan Encounter Details Date Type Department Care Team (Late st Contact Info) Description 10/11/2023 Telephone Hematology/Oncology [facility] [address] [place] [address] Mick Haji MD [address] [place] [address] Precert Future (Gian lujan) Allergies Active Allergy [...] If revlimid is needed please send to [facility] pool [phone] * Telephone Encounter - Omar Escobar RN - 10/12/2023 3:57 PM EDT Pt ht added into chart, please update referral. * Addendum Note - Omar Escobar RN - 10/12/2023 11:53 AM EDTAddended by: OMAR ESCOBAR on: 10/12/2023 11:53 AM Modules accepted: Orders * Telephone Encounter - Omar Escobar RN - 10/11/2023 2:59 PM EDT [employer] plan built and routed for signature. Will await auth. - Nurse education scheduled 10/16/23 - Consent signed: 10/10/23 - Standing lab orders placed: CBCd, CMP prior to each treatment, [place], SPEP, Ig once a month - Meds ordered: Dexamethasone, Aspirin 81mg, Acyclovir 400mg MTM- FYI documented in this encounter Plan of Treatment Upcoming Encounters Date Type Department Care Team (Latest Contact Info) Description 10/16/2023 1:15 PM EDT Laboratory Laboratory [place] Debra Wagner [address] [place] [address] Liliane Lab [facility] 200 [facility] [place] [address] 10/16/2023 1:45 PM EDT Nurse Only Hematology/Onco logy [place] Debra Wagner [address] [place] [address] Liliane Nurse Hem Onc [facility] [address] [place] [address] 10/17/2023 1:30 PM EDT Pharmacy Pharmacy Hematology Oncology [facility] [address] [place] [address] [facility] [place] Hem/Onc [address] [place] [address] 11/26/2023 8:00 AM EDT Office Visit Hematology/Onco logy [place] Debra Wagner [address] [place] [phone] Rosie Chucrh MD [address] [place] [address] 12/10/2023 8:00 AM EDT Hospital Encounter ENDO [facility], Endoscopy Room [facility] [address] [place] [phone] Adama Dutta MD [address] [place] [address] 12/10/2023 8:00 AM EDT - 12/10/2023 8:45 AM EDT Surgery ENDO [facility], Endoscopy Room [facility] [address] [place] [address] Adama Dutta MD [address] [place] [address] ESOPHAGOGASTRODUODENOSCOPY (EGD), FLEXIBLE, TRANSORAL, ENDOSCOPIC ULTRASOUND 12/12/2023 9:40 AM EDT Office Visit Dermatology [facility] [address] [place] [address] Meliza Tao PA-C [address] [place] [phone] 05/06/2024 10:00 AM EDT Cardiac Studies Cardiology, [facility] [address] [place] [address] [facility] [address] [place] [address] 07/24/2024 11:00 AM EST Imaging Radiology [address] [place] [address] Scheduled Procedures Name Priority Associated Diagnoses Date/Ti [...] pancreas documented in this encounter Care Teams Environmental Remediation Engineer Relationship Specialty Start Date End Date Ofelia Garrett MD [address] [place] [address] [place] [address] PCP - General 06/21/01 documented as of this encounter
--- OUTSIDE RECORDS SUMMARY | 2023-10-24 07:28 | External Medical Summary | Summary of Care ---
Author Name Unknown Organization [facility] Address [address] [place] [address] Phone [phone] Care Team Providers Care Processing Manager Name Role Phone Ofelia Garrett MD Primary Care Provider +1 [phone] Encounter Details Date Type Department Care Team (Late st Contact Info) Description 10/12/2023 Orders Only Hematology/Oncology, [facility] [address] [place] [address] Rosie Church MD 200 [place] [address] Allergies Active Allergy Reactions Criticality [...] SDHB gene variant (c.286+2 T>A) detected via Magoosh. Increased risk for Hereditary Paraganglioma Pheochromocytoma Syndrome. [...] 1:15 PM EDT Pharmacy Pharmacy Hematology Oncology [address] [address] [facility], [facility] Hem/Onc [address] [place] [address] 10/16/2023 1:45 PM EDT Nurse Only Hematology/Oncol linette [place] [address] [place] [address] Liliane, Nurse Hem Onc Bhavani [address] [place] [address] 10/17/2023 1:30 PM EDT Pharmacy Pharmacy Hematology Oncology [address] [address] [facility], [facility] Hem/Onc [address] [place] [address] [place] [address] 11/26/2023 8:00 AM EDT Office Visit Hematology/Oncol ogy [facility] [address] [place] [phone] Rosie Church MD [address] [place] [address] 12/10/2023 8:00 AM EDT Hospital Encounter ENDO OSS[facility], Endoscopy Room [facility] [address] [place] [phone] Adama Dutta MD [address] [place] [address] 12/10/2023 8:00 AM EDT - 12/10/2023 8:45 AM EDT Surgery ENDO OSS[facility], Endoscopy Room [facility] [address] [place] [phone] Adama Dutta MD [address] [place] [address] ESOPHAGOGASTRODUODENOSCOPY (EGD), FLEXIBLE, TRANSORAL, ENDOSCOPIC ULTRASOUND 12/12/2023 9:40 AM EDT Office Visit Dermatology [facility] [address] [place] [address] Meliza Tao PA-C [address] [place] [phone] 05/06/2024 10:00 AM EDT Cardiac Studies Cardiology, [facility] [address] [place] [address] Gamal Jeff [facility] [address] [place] [address] 07/24/2024 11:00 AM EST Imaging Radiology [address] [place] [address] Scheduled Procedures Name Priority Associated Diagnoses Date/Ti [...] filedocumented as of this encounter Care Teams Processing Manager Relationship Specialty Start Date End Date Ofelia Garrett MD [address] [place], [place] [address] [address] PCP - General 06/21/01 documented as of this encounter
--- OUTSIDE RECORDS SUMMARY | 2023-10-24 07:28 | External Medical Summary | Summary of Care ---
Author Name Unknown Organization [facility] Address [address] [place] [address] Phone [phone] Care Team Providers Care Telesales Professional Name Role Phone Ofelia Garrett MD Primary Care Provider [phone] [phone] Reason for Visit * Reason Onset Date Comments Precert Future 10/11/2023 Gian Encounter Details Date Type Department Care Team (Late st Contact Info) Description 10/11/2023 Telephone Hematology/Oncology [facility] 200 [facility] [place] [phone] Mick Haji MD 200 [place] [address] Precert Future (Gian) Allergies Active Allergy Reactions [...] Active Fexofenadine HCl 180 MG Oral Tablet (Chrsitie Allergy) Take 1 Tablet by mouth in [...] SDHB gene variant (c.286+2 T>A) detected via Trendyta. Increased risk for Hereditary Paraganglioma Pheochromocytoma Syndrome. [...] Escobar RN - 10/11/2023 2:59 PM EDT [place] plan built and routed for signature. Will await auth. - Nurse education scheduled 10/16/23 - Consent signed: 10/10/23 - Standing lab orders placed: CBCd, CMP prior to each treatment, [place], SPEP, Ig once a month - Meds ordered: Dexamethasone, Aspirin 81mg, Acyclovir 400mg MTM- FYI documented in this encounter Plan of Treatment Upcoming Encounters Date Type Department Care Team (Latest Contact Info) Description 10/15/2023 1:15 PM EDT Pharmacy Pharmacy Hematology Oncology [address] [address] [facility] Hem/Onc [address] [place] [address] 10/16/2023 1:45 PM EDT Nurse Only Hematology/Oncol [place] Debra Garcia [address] [place] [phone] Liliane, Nurse Hem Onc [facility] [address] [place] [address] 10/17/2023 1:30 PM EDT Pharmacy Pharmacy Hematology Oncology [address] [address] [facility] Hem/Onc [address] [place] [address] 11/26/2023 8:00 AM EDT Office Visit Hematology/Oncol State Debra Landaverde [address] [place] [phone] Rosie Church MD [address] [place] [address] 12/10/2023 8:00 AM EDT Hospital Encounter ENDO OSSC, Endoscopy Room [facility] [address] [place] [phone] Adama Dutta MD [address] [place] [address] 12/10/2023 8:00 AM EDT - 12/10/2023 8:45 AM EDT Surgery ENDO [facility], Endoscopy Room [facility] [address] [place] [place] [phone] Adama Dutta MD [address] [place] [address] ESOPHAGOGASTRODUODENOSCOPY (EGD), FLEXIBLE, TRANSORAL, ENDOSCOPIC ULTRASOUND 12/12/2023 9:40 AM EDT Office Visit Dermatology [facility] [address] [place] [address] Meliza Tao PA-C [address] [place] [phone] 05/06/2024 10:00 AM EDT Cardiac Studies Cardiology, [facility] [address] [place] [address] [place], Pacer Clinic [facility] [address] [place] [address] 07/24/2024 11:00 AM EST Imaging Radiology [address] [place] [address] Scheduled Procedures Name Priority Associated Diagnoses Date/Ti [...] pancreas documented in this encounter Care Teams Telesales Professional Relationship Specialty Start Date End Date Ofelia Garrett MD [address] [place] [address] [place] [address] PCP - General 06/21/01 documented as of this encounter
--- OUTSIDE RECORDS SUMMARY | 2023-10-24 07:28 | External Medical Summary | Summary of Care ---
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 Increased risk for Hereditary Paraganglioma Pheochromocytoma Syndrome. [...] 1:15 PM EDT Pharmacy Pharmacy Hematology Oncology [address] [address] [facility], [facility] Hem/Onc [address] [place] [address] 10/16/2023 1:45 PM EDT Nurse Only Hematology/Oncol linette [place]omin [place] [address] [place] [phone] Liliane, Nurse Hem Onc [facility] 200 [facility] [place] [address] 10/17/2023 1:30 PM EDT Pharmacy Pharmacy Hematology Oncology [address] [address] [facility], [facility] Hem/Onc [address] [place] [address] 11/26/2023 8:00 AM EDT Office Visit Hematology/Oncol linette [place] [address] [place] [phone] Rosie Church MD [address] [place] [address] 12/10/2023 8:00 AM EDT Hospital Encounter ENDO [facility], Endoscopy Room [facility] [address] [place] [phone] Adama Dutta MD [address] [place] [address] 12/10/2023 8:00 AM EDT - 12/10/2023 8:45 AM EDT Surgery ENDO [facility], Endoscopy Room [facility] [address] [place] [phone] Adama Dutta MD [address] [place] [address] ESOPHAGOGASTRODUODENOSCOPY (EGD), FLEXIBLE, TRANSORAL, ENDOSCOPIC ULTRASOUND 12/12/2023 9:40 AM EDT Office Visit Dermatology [facility] [address] [place] [address] Meliza Tao PA-C [address] [place] [phone] 05/06/2024 10:00 AM EDT Cardiac Studies Cardiology, [facility] [address] [place] [address] [facility]er [facility] [address] [place] [address] 07/24/2024 11:00 AM EST Imaging Radiology [address] [place] [address] Scheduled Orders Name Type Priority Associated Diagnoses Orde r Schedule HEPATITIS B SURFACE ANTIGEN Lab Routine Screening for viral disease Expected: 10/19/2023 (Approximate), Expires: 12/12/2023 HEPATITIS B CORE ANTIBODIES IGG AND IGM Lab Routine Screening for viral disease Expected: 10/19/2023 (Approximate), Expires: 12/12/2023 HEPATITIS B SURFACE ANTIBODY Lab Routine Screening for viral disease Expected: 10/19/2023 (Approximate), Expires: 12/12/2023 Scheduled Procedures Name Priority Associated Diagnoses Date/Ti [...] as of this encounter Visit Diagnoses Diagnosis Screening for viral disease- Primary Special screening examination for unspecified viral disease Pancreatic lesion Unspecified disease of pancreas documented in this encounter Care Teams Transformer Inspector Relationship Specialty Start Date End Date Ofelia Garrett MD [address] [place] [address] [place] [address] PCP - General 06/21/01 documented as of this encounter
--- OUTSIDE RECORDS SUMMARY | 2023-10-24 07:28 | External Medical Summary | Summary of Care ---
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 Increased risk for Hereditary Paraganglioma Pheochromocytoma Syndrome. [...] when determination is received. Susan Wilkinson Medication Coke Burner P: [phone] F: [phone] 10/15/2023,3:27 PM * Telephone Encounter - Tricia Jacinto RN - 10/15/2023 2:42 PM EDT Please still move forward with auth for revlimid. Thanks! * Telephone Encounter - Mallory Rodriguez OSA - 10/15/2023 9:19 AM EDT Darzalex was denied. If revlimid is needed please send to [employer] pool [id number] * Telephone Encounter - Omar Escobar RN - 10/12/2023 3:57 PM EDT Pt ht added into chart, please update referral. * Addendum Note - Omar Escobar RN - 10/12/2023 11:53 AM EDTAddended by: OMAR ESCOBAR on: 10/12/2023 11:53 AM Modules accepted: Orders * Telephone Encounter - Omar Escobar RN - 10/11/2023 2:59 PM EDT [place] plan built and routed for signature. Will await auth. - Nurse education scheduled 10/16/23 - Consent signed: 10/10/23 - Standing lab orders placed: CBCd, CMP prior to each treatment, Vance, SPEP, Ig once a month - Meds ordered: Dexamethasone, Aspirin 81mg, Acyclovir 400mg MTM- FYI documented in this encounter Plan of Treatment Upcoming Encounters Date Type Department Care Team (Latest Contact Info) Description 10/16/2023 1:15 PM EDT Laboratory Laboratory Bhavani [place] [address] [place] [phone] Liliane Lab [facility] 200 [facility] [place] [address] 10/16/2023 1:45 PM EDT Nurse Only Hematology/Onco logy Bhavani [place] [address] [place] [phone] Liliane Nurse Hem Onc [facility] [address] [place] [address] 10/17/2023 1:30 PM EDT Pharmacy Pharmacy Hematology Oncology [address] [address] [facility] Hem/Onc [address] [place] [address] 11/26/2023 8:00 AM EDT Office Visit Hematology/Onco logy [facility] [address] [place] [phone] Rosie Church MD [address] [place] [address] 12/10/2023 8:00 AM EDT Hospital Encounter ENDO [facility], Endoscopy Room [facility] [address] [place] [phone] Adama Dutta MD [address] [place] [address] 12/10/2023 8:00 AM EDT - 12/10/2023 8:45 AM EDT Surgery ENDO [facility], Endoscopy Room [facility] [address] [place] [phone] Adama Dutta MD [address] [place] [address] ESOPHAGOGASTRODUODENOSCOPY (EGD), FLEXIBLE, TRANSORAL, ENDOSCOPIC ULTRASOUND 12/12/2023 9:40 AM EDT Office Visit Dermatology [facility] [address] [place] [address] Meliza Tao PA-C 200 [facility] [place] [phone] 05/06/2024 10:00 AM EDT Cardiac Studies Cardiology, [facility] [address] [place] [address] Gamal Jeff [facility] [address] [place] [address] 07/24/2024 11:00 AM EST Imaging Radiology [address] [place] [address] Scheduled Procedures Name Priority Associated Diagnoses Date/Ti [...] pancreas documented in this encounter Care Teams Cloth Washer Operator Relationship Specialty Start Date End Date Ofelia Garrett MD [address] [place] [address] [place] [address] PCP - General 06/21/01 documented as of this encounter
--- OUTSIDE RECORDS SUMMARY | 2023-10-24 07:28 | External Medical Summary | Summary of Care ---
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 Increased risk for Hereditary Paraganglioma Pheochromocytoma Syndrome. [...] is needed please send to oral pool [phone] * Telephone Encounter - Omar Escobar RN - 10/12/2023 3:57 PM EDT Pt ht added into chart, please update referral. * Addendum Note - Omar Escobar RN - 10/12/2023 11:53 AM EDTAddended by: OMAR ESCOBAR on: 10/12/2023 11:53 AM Modules accepted: Orders * Telephone Encounter - Omar Escobar RN - 10/11/2023 2:59 PM EDT [place] plan built and routed for signature. Will await auth. - Nurse education scheduled 10/16/23 - Consent signed: 3/20/24 - Standing lab orders placed: CBCd, CMP prior to each treatment, [place], SPEP, Ig once a month - Meds ordered: Dexamethasone, Aspirin 81mg, Acyclovir 400mg [facility] documented in this encounter Plan of Treatment Upcoming Encounters Date Type Department Care Team (Latest Contact Info) Description 10/15/2023 1:15 PM EDT Pharmacy Pharmacy Hematology Oncology [address] [address] [facility] Hem/Onc [address] [place] [address] 10/16/2023 1:45 PM EDT Nurse Only Hematology/Oncol State Debra Landaverde [address] [place] [phone] Liliane, Nurse Hem Onc [facility] 200 [facility] [place] [address] 10/17/2023 1:30 PM EDT Pharmacy Pharmacy Hematology Oncology [address] [address] [facility] Hem/Onc [address] [place] [address] 11/26/2023 8:00 AM EDT Office Visit Hematology/Oncol ogState Debra Garcia [address] [place] [phone] Rosie Church MD [address] [place] [address] 12/10/2023 8:00 AM EDT Hospital Encounter ENDO [facility], Endoscopy Room [facility] [address] [place] [phone] Adama Dutta MD [address] [place] [address] 12/10/2023 8:00 AM EDT - 12/10/2023 8:45 AM EDT Surgery ENDO [facility], Endoscopy Room [facility] [address] [place] [phone] Adama Dutta MD [address] [place] [address] ESOPHAGOGASTRODUODENOSCOPY (EGD), FLEXIBLE, TRANSORAL, ENDOSCOPIC ULTRASOUND 12/12/2023 9:40 AM EDT Office Visit Dermatology [facility] [address] [place] [address] Meliza Tao PA-C [address] [place] [phone] 05/06/2024 10:00 AM EDT Cardiac Studies Cardiology, [facility] [address] [place] [address] [place], Pacer [facility] [address] [place] [place] [address] 07/24/2024 11:00 AM EST Imaging Radiology [address] [place] [address] Scheduled Procedures Name Priority Associated Diagnoses Date/Ti [...] pancreas documented in this encounter Care Teams Topographical Drafter Relationship Specialty Start Date End Date Ofelia Garrett MD [address] [place] [address] [place] [address] PCP - General 06/21/01 documented as of this encounter
--- OUTSIDE RECORDS SUMMARY | 2023-10-24 07:28 | External Medical Summary | Summary of Care ---
Author Name Unknown Organization [facility] Address [address] [place] [address] Phone [phone] Care Team Providers Care Astronaut Mission Specialist Name Role Phone Ofelia Garrett MD Primary Care Provider [phone] Reason for Visit * Reason Comments Medication Management Encounter Details Date Type Department Care Team (Late st Contact Info) Description 10/12/2023 1:00 PM EDT Pharmacy Pharmacy Hematology Oncology [facility] [address] [place] [address] [facility], [facility] Hem/Onc [address] [place], [place] [id number] Smoldering multiple myeloma* Allergies Active Allergy Reactions [...] 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 Increased risk for Hereditary Paraganglioma Pheochromocytoma Syndrome. 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 Church Additional Therapy: Daratumumab Dexamethasone Supportive Care Meds: None Prophylactic Meds: ASA (to be ordered in beacon plan) Acyclovir Relevant Chronic Medications: Category Medications Pertinent Notes Antihypertensives Lisinopril 20mg daily Amlodipine 10mg daily Pt hx Thyroid Levothyroxine 25mcg daily Pt hx Cycle Dates C1 TBD C2 TBD Review of therapy: Line of therapy: first Previous therapy: none Reviewed dosage prescribed for appropriateness (based on indication, hepatic function,renal function, etc): no changes Are appropriate supportive care medications prescribed? No, none needed Are appropriate prophylactic medications prescribed? VTE ppx to be ordered in beacon plan Have baseline labs/tests been obtained? Yes Has hepatitis B screening been completed? No, ordered and to be obtained prior to treatment start Potential drug-drug drug-herbal, drug-food, drug-disease interactions: No The Hematology/Oncology Oral Chemotherapy Clinic will assess medication compliance at each patient encounter Assessment and Plan: [place] plan uploaded and sent to Dr. Church for allyson MTM to follow up in 1 day for intro/med rec and 3 days to assess beacon plan and auth status Yes/no Date Action Taken [place] plan entered? yes 10/12/23 Consent completed? yes 10/10/23 Intro/med rec completed? Precert completed? Test claim completed? Financial assistance needed? Physician signature? Rx released? Education completed? Follow up: 1 and 3 days Earlene Bey, PharmD, BCOP Clinical Pharmacist, [facility] Oral Chemotherapy [facility] 10/12/2023, 3:06 PM Monitoring Parameters: Estimated CrCl Serum creatinine: 1.1 mg/dL (H) 09/17/23 0834 Estimated creatinine clearance: 43.5 mL/min (A) Hepatitis panel N/A- ordered and to be obtained prior to treatment start test N/A - postmenopausal Suggested lab monitoring Suggested labs (multiple myeloma): CBCd q1wk x 2 cycles, D1 and D15 of cycle 3, then q4wk thereafter; SCr/LFTs/TSH baseline, then q2-3mo; tests 2 negative test 10 to 14 days prior to initiation and w/in 24hr of treatment initiation, q1wk x 1 mo, then q2-4wk through 4 weeks after therapy d/c Is patient a woman of child-bearing potential or having sex with one? No On prophylactic anticoagulation? No, to be ordered in beacon IMPEDE score: 5 SAVED score: 1 Date TSH Free T4 Current thyroid meds Next Due Date 02/23/23 1.54 2.5 Levothyroxine 25mcg daily Treatment Parameters ANC > 1000, PLT > 30K Pertinent labs: Latest Reference Range & Units 09/17/23 08:34 WBC 4.00 - 10.80 K/uL 4.51 RBC 3.85 - 5.15 M/uL 3.80 HGB 12.0 - 15.3 g/dL 11.6 (L) HCT 36.0 - 45.2 % 35.6 (L) MCV 81.5 - 97.5 fL 93.7 MCH 27.0 - 34.0 pg 30.5 MCHC 32.0 - 36.0 g/dL 32.6 RDW 11.5 - 15.5 % 13.7 PLT 140 - 400 K/uL 272 MPV 6.6 - 11.1 fL 10.1 CBC WITH WBC DIFFERENTIAL Rpt ! Absolute Neutrophils 1.80 - 7.70 K/uL 2.84 Latest Reference Range & Units 09/17/23 08:34 Albumin 3.8 - 5.0 g/dL 3.5 (L) AST 10 - 35 U/L 16 ALT 10 - 35 U/L 18 Alkaline Phosphatase 35 - 130 U/L 61 Bilirubin, Total <=1.2 mg/dL 0.5 Time Spent on Encounter: 16 - 20 minutes Encounter Group: Hematology Encounter Interventions Item Category: Oral Chemotherapy Lenalidomide Problem/Rationale: Indication: Needs additional medication therapy - Untreated condition, - Synergistic therapy [place] Plan Review: Initial Plan/upload Pharmacist Intervention(s): Drug Interaction Screen, Lab monitoring, Orders labs, and Referral review Magnitude of Intervention: Monitoring with direction (Level 1) documented in this encounter Plan of Treatment Upcoming Encounters Date Type Department Care Team (Latest Contact Info) Description 10/15/2023 1:15 PM EDT Pharmacy Pharmacy Hematology Oncology [address] [address] [facility], [facility] Hem/Onc [address] [place] [address] 10/16/2023 1:45 PM EDT Nurse Only Hematology/Oncol linette Momin [address] [place] [address] Liliane, Nurse Hem Onc [address] [place] [address] 10/17/2023 1:30 PM EDT Pharmacy Pharmacy Hematology Oncology [address] [address] [facility], [facility] Hem/Onc [address] [place] [address] 11/26/2023 8:00 AM EDT Office Visit Hematology/Oncol ogy [place] Debra Momin [address] [place] [address] Rosie Church MD [address] [place] [address] 12/10/2023 8:00 AM EDT Hospital Encounter ENDO [facility], Endoscopy Room [facility] [address] [place] [phone] Adama Dutta MD [address] [place] [address] 12/10/2023 8:00 AM EDT - 12/10/2023 8:45 AM EDT Surgery ENDO [facility], Endoscopy Room [facility] [address] [place] [address] Adama Dutta MD [address] [place] [address] ESOPHAGOGASTRODUODENOSCOPY (EGD), FLEXIBLE, TRANSORAL, ENDOSCOPIC ULTRASOUND 12/12/2023 9:40 AM EDT Office Visit Dermatology [facility] Debra Momin [address] [place] [address] Meliza Tao PA-C [address] [place] [phone] 05/06/2024 10:00 AM EDT Cardiac Studies Cardiology, [facility] [address] [place] [address] [place], Pacer [facility] [address] [place] [address] 07/24/2024 11:00 AM EST Imaging Radiology [address] [place] [address] Scheduled Procedures Name Priority Associated Diagnoses Date/Ti [...] FOR HTN 08/01/2021 COVID-19 Vaccine ( - 2022-24 season) 2023 Influenza Vaccine (FLU [...] pancreas documented in this encounter Care Teams Astronaut Mission Specialist Relationship Specialty Start Date End Date Ofelia Garrett MD [address] [place], [place] [address] [address] PCP - General 06/21/01 documented as of this encounter
--- OUTSIDE RECORDS SUMMARY | 2023-10-24 07:28 | External Medical Summary | Summary of Care ---
Author Name Unknown Organization [facility] Address [address] [place] [address] Phone [phone] Care Team Providers Care Silo Filler Name Role Phone Ofelia Garrett MD Primary Care Provider [phone] Reason for Visit * Reason Onset Date Comments Medication Refill 10/12/2023 Encounter Details Date Type Department Care Team (Late st Contact Info) Description 10/12/2023 Refill Hematology/Oncology [facility] [address] [place] [address] Rosie Pulido MD 200 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 Increased risk for Hereditary Paraganglioma Pheochromocytoma Syndrome. [...] Telephone Encounter - Rosie Pulido MD - 10/12/2023 3:28 PM EDTSigned Prescriptions: Disp Refills Aspirin 81 MG Oral Capsule 90 Cap*1 Sig: Take 81 mg by mouth every evening. Authorizing Provider: ROSIE PULIDO Acyclovir 400 MG Oral Tablet (Zovirax) 180 Ta*1 Sig: Take 1 Tablet by mouth in the morning and 1 Tablet before bedtime. Authorizing Provider: ROSIE PULIDO dexAMETHasone 4 MG Oral T ablet (Decadron) 120 Ta*0 Sig: Take 10 tablets by mouth the day after treatment. Authorizing Provider: ROSIE PULIDO * Telephone Encounter - Omar Escobar RN - 10/12/2023 11:51 AM EDT Pended Meds, please sign. documented in this encounter Plan of Treatment Upcoming Encounters Date Type Department Care Team (Latest Contact Info) Description 10/15/2023 1:15 PM EDT Pharmacy Pharmacy Hematology Oncology [address] [address] [facility], [facility] Hem/Onc [address] [place] [address] 10/16/2023 1:45 PM EDT Nurse Only Hematology/Oncol [place] Debra Landaverde [address] [place] [phone] Liliane Nurse Hem Onc Bhavani [address] [place] [address] 10/17/2023 1:30 PM EDT Pharmacy Pharmacy Hematology Oncology [address] [address] [facility], [facility] Hem/Onc [address] [place] [address] 11/26/2023 8:00 AM EDT Office Visit Hematology/Oncol [place] Debra [place]andaverde [address] [place] [phone] Rosie Pulido MD [address] [place] [address] 12/10/2023 8:00 AM EDT Hospital Encounter ENDO [facility], Endoscopy Room [facility] [place] [address] Adama Dutta MD [address] [place] [address] 12/10/2023 8:00 AM EDT - 12/10/2023 8:45 AM EDT Surgery ENDO [facility], Endoscopy Room [facility] [address] [place] [phone] Adama Dutta MD [address] [place] [address] ESOPHAGOGASTRODUODENOSCOPY (EGD), FLEXIBLE, TRANSORAL, ENDOSCOPIC ULTRASOUND 12/12/2023 9:40 AM EDT Office Visit Dermatology [facility] [address] [place] [address] Meliza Tao PA-C [address] [place] [address] 05/06/2024 10:00 AM EDT Cardiac Studies Cardiology, [facility] [address] [place] [address] [facility] [address] [place] [address] 07/24/2024 11:00 AM EST Imaging Radiology [address] [place] [address] Scheduled Procedures Name Priority Associated Diagnoses Date/Ti [...] pancreas documented in this encounter Care Teams Silo Filler Relationship Specialty Start Date End Date Ofelia Garrett MD [address] [place] [address] [place] [address] PCP - General 06/21/01 documented as of this encounter
--- OUTSIDE RECORDS SUMMARY | 2023-10-24 07:29 | External Medical Summary | Summary of Care ---
Author Name Unknown Organization [facility] Address [address] [place] [address] Phone [phone] Care Team Providers Care Radiology Services Manager Name Role Phone Ofelia Garrett MD Primary Care Provider [phone] Reason for Visit * Reason Comments Follow Up Encounter Details Date Type Department Care Team (Late st Contact Info) Description 10/10/2023 4:00 PM EDT Office Visit Hematology/Oncology [facility] [place] [address] [place] [address] Rosie Church MD [address] [place] [address] Smoldering multiple myeloma (SMM)* Allergies Active Allergy Reactions Criticality Noted Date Comments Diltiazem Hcl 10/20/2008 Sulfa Antibiotics 01/17/2001 rash Wound Dressing Adhesive 03/23/2023 Device implant dressing documented as of this encounter (statuses as of 10/10/2023) Medications Medication Sig Dispensed Refills Start Date [...] and 1 Capsule before bedtime. 0 Active ASPIRIN 81 MG PO TBEC 1 tab daily 0 4 Discontinued FEXOFENADINE HCL 180 MG PO TABS As needed 0 4 Discontinued metoprolol succinate XL (TOPROL XL) 25 MG TB24 Take by mouth at bedtime. 12.5 mg daily 1 06/07/2015 4 Discontinued hydrochlorothiazid e (HYDRODIURIL) 12.5 MG CapsuleIndications :Hypertension goal BP (blood pressure) < 140/90 Take 1 Cap by mouth daily. 30 Cap 5 07/03/2017 4 Discontinued Krill Oil 300 MG Capsule Take 1 Capsule by mouth in the morning. 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 Increased risk for Hereditary Paraganglioma Pheochromocytoma Syndrome. [...] as of this encounter (statuses as of 10/10/2023) Resolved Problems Problem Noted Date Diagnosed Date Resolved Date dysplastic nevi 08/04/2002 07/21/2015 HTN, goal below 140/90 12/21 PURE HYPERCHOLESTEROLEM 06/22 Overview: Per Lipid Taxonomy. documented as of this encounter (statuses as of 10/10/2023) Immunizations Name Administration Dates Next Due Seasonal [...] Sign Reading Time Taken Comments Blood Pressure 124/93 10/10/2023 3:41 PM EDT Pulse 80 10/10/2023 3:41 PM EDT Temperature 36.3 C (97.4 F) 10/10/2023 3:41 PM ED T Respiratory Rate 20 10/10/2023 3:41 PM EDT Oxygen Saturation 98% 10/10/2023 3:41 PM EDT Inhaled Oxygen Concentration - - Weight 78.6 kg (173 lb 4.8 oz) 10/10/2023 3:41 P M EDT Height - - Body Mass Index 30.22 11/27/2022 11:30 AM EDT documented in this encounter Progress Notes * Rosie Church MD - 10/10/2023 3:57 PM EDT Outpatient Consult Note Data Source: Patient, Epic record. Data Source: Patient, [facility] record. 10/10/2023 3:57 PM Keysha Thomason [id number] 78 year old Patient Encounter: HEMATOLOGY/ONCOLOGY [facility] Cancer Diagnosis: Patient transferred from Dr. 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 Moore and subsequently followed by Dr. Vital now came [facility] for follow-up. Patient was seen by Dr. [...] rare megakaryocytes noted. 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 A slight increase in plasma cells is [...] CD138 stain demonstrates approximately 34% plasma cells. [place] lambda stains demonstrate a kappa predominant plasma cell population. A thioflavin T stain looking for amyloid is negative. Patient Name: Keysha Thomason Patient / Sex: 1945 / F Specimen Type: Bone Marrow Body Site: Bone Marrow Specimen ID: [id number] Accession / CaseNo: [id number] / [id number] Collection Date: 09/29/2022 01:23:00 PM Received Date: [...] panel. Karyotype: 46,XX[20] Interpretation: NORMAL FEMALE KARYOTYPE Interval History: Patient was seen by Dr. Parisi at [facility] for 2nd opinion and he recommended treatment with the triple regimen incorporating daratumumab with lenalidomide plus Decadron which is an ongoing trial. Patient also has nephritic range proteinuria in 24 hour urine collection revealed 4 g of protein. 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 Patient now return to discuss the treatment option. She is complaining feeling weak and tired. Denies any headache, fever, night sweats, new bone pain, nausea, vomiting, fever, night sweats, bleeding, bruising. LABS/IMAGING: Results for orders placed or performed in visit on 09/17/23 COMPREHENSIVE METABOLIC PANEL Result Value Ref Range BUN 23 (H) 6 - 20 mg/dL Creatinine 1.1 (H) 0.5 - 1.0 mg/dL Estimated Glomerular Filtration Rate 51 (L) >=60 mL/min Sodium 135 135 - 146 mmol/L Potassium 3.8 3.5 - 5.1 mmol/L Chloride 98 98 - 107 mmol/L CO2 25 22 - 32 mmol/L Anion Gap 12 7 - 15 mmol/L Glucose 92 70 - 120 mg/dL Albumin 3.5 (L) 3.8 - 5.0 g/dL AST 16 10 - 35 U/L Alkaline Phosphatase 61 35 - 130 U/L Bilirubin, Total 0.5 <=1.2 mg/dL Calcium 9.8 8.4 - 10.2 mg/dL Protein 7.5 6.0 - 8.3 g/dL ALT 18 10 - 35 U/L SERUM PROTEIN ELECTROPHORESIS REFLEX PROFILE Result Value Ref Range Normal/Abnormal Abnormal (A) Normal Protein 7.5 6.0 - 8.3 g/dL Albumin 3.24 (L) 3.30 - 4.40 g/dL Alpha-1 Globulin 0.18 0.10 - 0.30 g/dL Alpha-2 Globulin 1.06 (H) 0.60 - 1.00 g/dL Beta-Globulin 2.69 (H) 0.80 - 1.30 g/dL Gamma-Globulin 0.33 (L) 0.70 - 1.70 g/dL Electrophoresis Interpretation Abnormal. A paraprotein is present that has been previously identified as a monoclonal IgG kappa. Unable to reliably identify or accurately quantify the paraprotein due to its migration in the beta region. Please order serum free light chains, beta-2 microglobulin, and the quantitative immunoglobulins for disease monitoring. Decreased gamma fraction. SERUM FREE LIGHT CHAINS Result Value Ref Range [place] Free Light Chains, Serum 518.00 (H) 3.30 - 19.40 mg/L Lambda Free Light Chains, Serum 10.01 5.71 - 26.30 mg/L [place] Lambda Free Light Chains Ratio 51.75 (H) 0.26 - 1.65 IMMUNOGLOBULIN QUANTITATIVE Result Value Ref Range IgG 2,042 (H) 700 - 1,600 mg/dL IgA 11 (L) 70 - 400 mg/dL IgM 11 (L) 40 - 230 mg/dL [id number], SERUM Result Value Ref Range B2 Microglobulin, Serum 4.62 (H) <=2.51 mg/L CBC Result Value Ref Range WBC 4.51 4.00 - 10.80 K/uL RBC 3.80 3.85 - 5.15 M/uL HGB 11.6 (L) 12.0 - 15.3 g/dL HCT 35.6 (L) 36.0 - 45.2 % MCV 93.7 81.5 - 97.5 fL MCH 30.5 27.0 - 34.0 pg MCHC 32.6 32.0 - 36.0 g/dL RDW 13.7 11.5 - 15.5 % PLT 272 140 - 400 K/uL MPV 10.1 6.6 - 11.1 fL nRBCs 0 <=0 /100 WBCs DIFFERENTIAL, AUTOMATED Result Value Ref Range WBC 4.51 4.00 - 10.80 K/uL Neutrophils % 63.0 40.0 - 75.0 % Lymphocytes % 29.9 18.0 - 42.0 % Monocytes % 4.9 1.0 - 11.0 % Eosinophils % 1.6 0.0 - 6.0 % Basophils % 0.2 0.0 - 2.0 % Immature Granulocytes % 0.4 0.0 - 2.0 % Absolute Neutrophils 2.84 1.80 - 7.70 K/uL Absolute Lymphocytes 1.35 1.00 - 4.80 K/ul Absolute Monocytes 0.22 0.00 - 1.10 K/uL Absolute Eosinophils 0.07 0.00 - 0.70 K/uL Absolute Basophils 0.01 0.00 - 0.20 K/uL Absolute Immature Granulocytes 0.02 0.00 - 0.20 K/uL Recent blood test were done on 09/17/2023 which revealed WBC count of 4.5, hemoglobin 11.6 and platelet count 272. Creatinine is 1.1, kappa free light chain is 518 and lambda 10.01 with ratio of 51.75. And IgG level was 2041. REVIEW OF SYSTEMS: General: No Fever, chills, [...] or bleeding Genitourinary: Denies Hematuria or dysuria Musculoskeletal: Generalized fatigue and tired Skin: No skin rash or lesions noted Neurologic: No numbness, weakness, neuropathic pain or [...] Current Outpatient Medications Medication Sig Dispense Refill Fexofenadine HCl 180 MG Oral Tablet (Christie Allergy) Take 1 Tablet by mouth in the morning. Melatonin 3-10 MG Oral Tablet Take by mouth. Metamucil Free & Natural 43 % Oral Powder (Psyllium) Take by mouth. Docusate Sodium 100 MG Oral Capsule (Stool Softener) Take 1 Capsule by mouth in the morning and 1 Capsule before bedtime. DAILY MULTIVITAMIN PO TABS 1 tqab daily [...] MOUTH THREE TIMES A DAY FOR NEUROPATHY No current facility-administered medications for this visit. Social History Tobacco Use Smoking status: Never Smokeless tobacco: Never Substance Use Topics Alcohol use: No Drug use: No Review of patient's allergies indicates: Allergen Reactions Cardizem [Diltiazem Hcl] Sulfa Antibiotics rash Wound Dressing Adhesive Device implant dressing PHYSICAL EXAMINATION: General Appearance: Healthy appearing patient in no acute distress BP 124/93 (BP Site: Left Arm, BP Position: Sitting, BP Cuff Size: Regular) | Pulse 80 | Temp 36.3 C (97.4 F) (Tympanic) | Resp 20 | Wt 78.6 kg (173 lb 4.8 oz) | SpO2 98% | BMI 30.22 kg/m | BSA 1.88 m Vitals reviewed. HEENT: No oral or pharyngeal masses, ulceration or thrush noted, no sinus tenderness. Neck is supple with no thyromegaly or JVD noted. Lymph Nodes: No lymphadenopathy noted in the occipital, pre and post auricular, cervical, supra andinfraclavicular, axillary, epitrochlear, inguinal, and popliteal region. Lungs/Thorax: Clear to auscultation, no accessory muscles of respiration being used. Heart: Regular rate and rhythm, normal S1, S2 Abdomen: Soft, nontender, bowel sounds present, no appreciable hepatosplenomegaly, no palpable masses Extremeties: Good pulses bilaterally, no peripheral edema. ASSESSMENT: 77-year-old female with history of MGUS [...] of kappa and lambda light chain and 2g of IgG level. She also has proteinuria and urine was positive for Bence-Puentes protein. Last PET scan was done on 02/01/2022 and was negative. Discussed with the patient and in detail about diagnosis and reviewed all the available blood test result with them. Also reviewed the recommendation from Dr. Parisi. Discussed with him about the benefit, risk, side effects and toxicity of the treatment. She is high-risk smoldering multiple myeloma and may benefit with the treatment to delay the progression to multiple myeloma and improve overall survival. After detailed discussion she agreed proceed with treatment as recommended by Dr. Parisi. PLAN: As above. She will be treated with combination of daratumumab plus lenalidomide and Decadron combination. She will return clinic for follow-up in 6 weeks. The patient voiced understanding of all of [...] documented in this encounter Nursing Notes * Roxana Marks MED ASSIST - 10/10/2023 3:49 PM EDT Patient identifed by name and birthdate Do you have any concerns about pain management for today's visit? No Living Will or Advance Directive for Health Care as noted on the problem list. [facility] is a way you can talk to your provider on line through e-mail. Would you like to sign up? I can activate it for you? ALREADY ACTIVE Filed Vitals: 10/10/23 1541 BP: 124/93 Pulse: 80 Resp: 20 Temp: 36.3 C (97.4 F) TempSrc: Tympanic SpO2: 98% Weight: 78.6 kg (173 lb 4.8 oz) [...] Department Care Team (Latest Contact Info) Description 12/10/2023 8:00 AM EDT Hospital Encounter ENDO [facility], Endoscopy Room [facility] [address] [place] [address] Adama Dutta MD [address] [place] [address] 12/10/2023 8:00 AM EDT - 12/10/2023 8:45 AM EDT Surgery ENDO [facility], Endoscopy Room [facility] [address] [place] [address] Adama Dutta MD [address] [place] [address] ESOPHAGOGASTRODUODENOSCOPY (EGD), FLEXIBLE, TRANSORAL, ENDOSCOPIC ULTRASOUND 12/12/2023 9:40 AM EDT Office Visit Dermatology [facility] [address] [place] [address] Meliza Tao PA-C [address] [place] [phone] 05/06/2024 10:00 AM EDT Cardiac Studies Cardiology, [facility] [address] [place] [address] [place], Pacer Clinic [facility] [address] [place] [address] 07/24/2024 11:00 AM EST Imaging Radiology [address] [place] [address] Scheduled Orders Name Type Priority Associated Diagnoses Orde r Schedule [id number], SERUM Lab Routine Smoldering multiple myeloma (SMM) Expected: 11/19/2023, Expires: 05/13/2024 CBC WITH WBC DIFFERENTIAL Lab Routine Smoldering multiple myeloma (SMM) Expected: 11/19/2023, Expires: 05/13/2024 COMPREHENSIVE METABOLIC PANEL Lab Routine Smoldering multiple myeloma (SMM) Expected: 11/19/2023, Expires: 05/13/2024 IMMUNOGLOBULIN QUANTITATIVE Lab Routine Smoldering multiple myeloma (SMM) Expected: 11/19/2023, Expires: 05/13/2024 SERUM FREE LIGHT CHAINS Lab Routine Smoldering multiple myeloma (SMM) Expected: 11/19/2023, Expires: 05/13/2024 SERUM PROTEIN ELECTROPHORESIS REFLEX PROFILE Lab Routine Smoldering multiple myeloma (SMM) Expected: 11/19/2023, Expires: 05/13/2024 Scheduled Procedures Name Priority Associated Diagnoses Date/Ti [...] pancreas documented in this encounter Care Teams Radiology Services Manager Relationship Specialty Start Date End Date Ofelia Garrett MD [address] [place] [address] [place] [phone] PCP - General 06/21/01 documented as of this encounter"
--- OUTSIDE RECORDS SUMMARY | 2023-10-24 07:29 | External Medical Summary | Summary of Care ---
Author Name Unknown Organization [facility] Address [address] [place] [address] Phone [phone] Care Team Providers Care Hot Dog Vendor Name Role Phone Ofelia Garrett MD Primary Care Provider +1 -[phone] Encounter Details Date Type Department Care Team (Late st Contact Info) Description 10/12/2023 Orders Only Hematology/Oncology [facility] [place] 200 [facility] [place] [phone] Rosie Church MD [address] [place] [address] Allergies Active Allergy Reactions Criticality Noted Date [...] SDHB gene variant (c.286+2 T>A) detected via [employer]. Increased risk for Hereditary Paraganglioma Pheochromocytoma Syndrome. [...] Department Care Team (Latest Contact Info) Description 10/12/2023 1:00 PM EDT Pharmacy Pharmacy Hematology Oncology [place] [address] [place] [address] [facility] [place] [facility], [facility] Hem/[place] [facility] [place] [address] 10/16/2023 1:45 PM EDT Nurse Only Hematology/Oncol ogdebbie [place] [address] [place] [address] Liliane, Nurse Hem Onc [facility] [address] [place] [address] 11/26/2023 8:00 AM EDT Office Visit Hematology/Oncol linette [place] [address] [place] [phone] Rosie Church MD [address] [place] [address] 12/10/2023 8:00 AM EDT Hospital Encounter ENDO [facility], Endoscopy Room [facility] [address] [place] [address] Adama Dutta MD [address] [place] [address] 12/10/2023 8:00 AM EDT - 12/10/2023 8:45 AM EDT Surgery ENDO [facility], Endoscopy Room [facility] [address] [place] [phone] Adama Dutta MD [address] [place] [address] ESOPHAGOGASTRODUODENOSCOPY (EGD), FLEXIBLE, TRANSORAL, ENDOSCOPIC ULTRASOUND 12/12/2023 9:40 AM EDT Office Visit Dermatology [facility] [address] [place] [address] Meliza Tao PA-C [address] [place] [phone] 05/06/2024 10:00 AM EDT Cardiac Studies Cardiology, [facility] [address] [place] [address] [place], Pacer Clinic [facility] [address] [place] [address] 07/24/2024 11:00 AM EST Imaging Radiology [address] [place] [address] Scheduled Procedures Name Priority Associated Diagnoses Date/Ti [...] filedocumented as of this encounter Care Teams Hot Dog Vendor Relationship Specialty Start Date End Date Ofelia Garrett MD [address] [place] [address] [place] [address] PCP - General 06/21/01 documented as of this encounter
--- OUTSIDE RECORDS SUMMARY | 2023-10-24 07:29 | External Medical Summary | Summary of Care ---
Author Name Unknown Organization [facility] Address [address] [place] [address] Phone [phone] Care Team Providers Care Steel Plate Printer Name Role Phone Ofelia Garrett MD Primary Care Provider +1 [phone] Reason for Visit * Reason Onset Date Comments Precert Future 10/11/2023 Gian Encounter Details Date Type Department Care Team (Late st Contact Info) Description 10/11/2023 Telephone Hematology/Oncology [facility] 200 [facility] [phone] Mick Haji MD 200 [place] [address] Precert Future (Gian) Allergies Active Allergy Reactions [...] SDHB gene variant (c.286+2 T>A) detected via [employer]. Increased risk for Hereditary Paraganglioma Pheochromocytoma Syndrome. [...] encounter Miscellaneous Notes * Addendum Note - Omar Escobar RN - 10/12/2023 11:53 AM EDTAddended by: OMAR ESCOBAR on: 10/12/2023 11:53 AM Modules accepted: Orders * Telephone Encounter - Omar Escobar RN - 10/11/2023 2:59 PM EDT [place] plan built and routed for signature. Will await auth. - Nurse education scheduled 10/16/23 - Consent signed: 10/10/23 - Standing lab orders placed: CBCd, CMP prior to each treatment, [place], SPEP, Ig once a month - Meds ordered: Dexamethasone, Aspirin 81mg, Acyclovir 400mg MTM- FYI documented in this encounter Plan of Treatment Upcoming Encounters Date Type Department Care Team (Latest Contact Info) Description 10/12/2023 1:00 PM EDT Pharmacy Pharmacy Hematology Oncology [facility] [address] [place] [address] [facility], [facility] Clinic Hem/Onc [address] [place] [address] 10/16/2023 1:45 PM EDT Nurse Only Hematology/Oncol ogy [facility] [place] [address] [place], [place] [phone] [place], Nurse Hem Onc [address] [address] [place], [place] [address] 11/26/2023 8:00 AM EDT Office Visit Hematology/[facility]col [facility] [place] [address] [place] [address] Rosie Church MD [address] [place] [address] 12/10/2023 8:00 AM EDT Hospital Encounter ENDO [facility], Endoscopy Room [facility] [address] [place] [phone] Adama Dutta MD [address] [place] [address] 12/10/2023 8:00 AM EDT - 12/10/2023 8:45 AM EDT Surgery ENDO [facility], Endoscopy Room [facility] [address] [place] [phone] Adama Dutta MD [address] [place] [address] ESOPHAGOGASTRODUODENOSCOPY (EGD), FLEXIBLE, TRANSORAL, ENDOSCOPIC ULTRASOUND 12/12/2023 9:40 AM EDT Office Visit Dermatology [facility] Liliane [place] [address] [place] [address] Meliza Tao PA-C [address] [place] [phone] 05/06/2024 10:00 AM EDT Cardiac Studies Cardiology, [facility], [place] [address] [place] [address] [facility] [address] [place] [address] 07/24/2024 11:00 AM EST Imaging Radiology [address] [place] [address] Scheduled Procedures Name Priority Associated Diagnoses Date/Ti [...] pancreas documented in this encounter Care Teams Steel Plate Printer Relationship Specialty Start Date End Date Ofelia Garrett MD [address] [place] [address] [place] [address] PCP - General 06/21/01 documented as of this encounter
--- OUTSIDE RECORDS SUMMARY | 2023-10-24 07:29 | External Medical Summary | Summary of Care ---
Author Name Unknown Organization [facility] Address [address] [place] [address] Phone [phone] Care Team Providers Care Membership Sales Advisor Name Role Phone Ofelia Garrett MD Primary Care Provider [phone] [phone] Encounter Details Date Type Department Care Team (Late st Contact Info) Description 10/12/2023 Orders Only Hematology/Oncology [facility] [place] 200 [facility] [place] [phone] Rosie Church MD 200 [facility] [place] [address] Smoldering multiple myeloma (SMM)* Allergies Active Allergy [...] SDHB gene variant (c.286+2 T>A) detected via Transmension. Increased risk for Hereditary Paraganglioma Pheochromocytoma Syndrome. [...] 1:00 PM EDT Pharmacy Pharmacy Hematology Oncology [facility] [address] [place] [address] [facility], [facility] Hem/Onc [address] [place] [address] 10/16/2023 1:45 PM EDT Nurse Only Hematology/Oncol [place] [address] [place] [address] Liliane, Nurse Hem Onc [facility] [address] [place] [address] 11/26/2023 8:00 AM EDT Office Visit Hematology/Oncol [place] [address] [place] [address] Rosie Church MD [address] [place] [address] 12/10/2023 8:00 AM EDT Hospital Encounter ENDO [facility], Endoscopy Room [facility] [address] [place] [phone] Adama Dutta MD [address] [place] [address] 12/10/2023 8:00 AM EDT - 12/10/2023 8:45 AM EDT Surgery ENDO [facility], Endoscopy Room [facility] [address] [place] [phone] Adama Dutta MD [address] [place] [address] ESOPHAGOGASTRODUODENOSCOPY (EGD), FLEXIBLE, TRANSORAL, ENDOSCOPIC ULTRASOUND 12/12/2023 9:40 AM EDT Office Visit Dermatology [facility] [address] [place] [address] Meliza Tao PA-C [address] [place] [phone] 05/06/2024 10:00 AM EDT Cardiac Studies Cardiology, [facility] [address] [place] [address] [place], Pacer Clinic [facility] [address] [place] [address] 07/24/2024 11:00 AM EST Imaging Radiology [address] [place] [address] Scheduled Orders Name Type Priority Associated Diagnoses Orde r Schedule COMPREHENSIVE METABOLIC PANEL Lab STAT Smoldering multiple myeloma (SMM) Every Week for 52 Occurrences starting 10/12/2023 until 10/11/2024 CBC WITH WBC DIFFERENTIAL Lab STAT Smoldering multiple myeloma (SMM) Every Week for 52 Occurrences starting 10/12/2023 until 10/11/2024 IGG Lab STAT Smoldering multiple myeloma (SMM) Every Month for 12 Occurrences starting 10/12/2023 until 10/11/2024 SERUM FREE LIGHT CHAINS Lab STAT Smoldering multiple myeloma (SMM) Every Month for 12 Occurrences starting 10/12/2023 until 10/11/2024 SERUM PROTEIN ELECTROPHORESIS REFLEX PROFILE Lab STAT Smoldering multiple myeloma (SMM) 12 Occurrences starting 10/12/2023 until 10/11/2024 Scheduled Procedures Name Priority Associated Diagnoses Date/Ti [...] COVID-19 Vaccine ( - 2022- season) 2023 Influenza Vaccine (FLU [...] pancreas documented in this encounter Care Teams Membership Sales Advisor Relationship Specialty Start Date End Date Ofelia Garrett MD [address] [place] [address] [place] [address] PCP - General 06/21/01 documented as of this encounter
--- OUTSIDE RECORDS SUMMARY | 2023-10-24 07:29 | External Medical Summary | Summary of Care ---
Author Name Unknown Organization [facility] Address [address] [place] [address] Phone [phone] Care Team Providers Care Supervisor Painting Department Name Role Phone Ofelia Garrett MD Primary Care Provider [phone] [phone] Reason for Visit * Reason Onset Date Comments Precert Future 10/11/2023 Gian Encounter Details Date Type Department Care Team (Late st Contact Info) Description 10/11/2023 Telephone Hematology/Oncology [facility] 200 [facility] [place] [phone] Mick Haji MD 200 [place] [address] Precert Future (Gian) Allergies Active Allergy Reactions [...] 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 Increased risk for Hereditary Paraganglioma Pheochromocytoma Syndrome. [...] Escobar RN - 10/11/2023 2:59 PM EDT [place] plan built and routed for signature. Will await auth. - Nurse education scheduled 10/16/23 - Consent signed: 10/10/23 - Standing lab orders placed: CBCd, CMP prior to each treatment, [place], SPEP, Ig once a month - Meds ordered: Dexamethasone, Aspirin 81mg, Acyclovir 400mg [place]- FYI documented in this encounter Plan of Treatment Upcoming Encounters Date Type Department Care Team (Latest Contact Info) Description 10/12/2023 1:00 PM EDT Pharmacy Pharmacy Hematology Oncology [facility] [address] [place] [address] [facility], [facility] Clinic Hem/Onc [address] [place] [address] 10/16/2023 1:45 PM EDT Nurse Only Hematology/Oncol [place] [address] [place] [address] Liliane Nurse Hem Onc [facility] [address] [place] [address] 11/26/2023 8:00 AM EDT Office Visit Hematology/Oncol ogy [facility] [address] [place] [phone] Rosie Church MD [address] [place] [address] 12/10/2023 8:00 AM EDT Hospital Encounter ENDO [facility], Endoscopy Room [facility] [address] [place] [phone] Adama Dutta MD [address] [place] [address] 12/10/2023 8:00 AM EDT - 12/10/2023 8:45 AM EDT Surgery ENDO [facility], Endoscopy Room [facility] [address] [place] [phone] Adama Dutta MD [address] [place] [address] ESOPHAGOGASTRODUODENOSCOPY (EGD), FLEXIBLE, TRANSORAL, ENDOSCOPIC ULTRASOUND 12/12/2023 9:40 AM EDT Office Visit Dermatology [facility] [address] [place] [address] Meliza Tao PA-C [address] [place] [phone] 05/06/2024 10:00 AM EDT Cardiac Studies Cardiology, [facility] [address] [place] [address] Gamal Jeff [facility] [address] [place] [address] 07/24/2024 11:00 AM EST Imaging Radiology [address] [place] [address] Scheduled Orders Name Type Priority Associated Diagnoses Orde r Schedule CBC WITH WBC DIFFERENTIAL Lab STAT Smoldering multiple myeloma (SMM) Every Week for 52 Occurrences starting 10/11/2023 until 10/10/2024 COMPREHENSIVE METABOLIC PANEL Lab STAT Smoldering multiple myeloma (SMM) Every Week for 52 Occurrences starting 10/11/2023 until 10/10/2024 SERUM FREE LIGHT CHAINS Lab STAT Smoldering multiple myeloma (SMM) Every Month for 12 Occurrences starting 10/11/2023 until 10/10/2024 SERUM PROTEIN ELECTROPHORESIS REFLEX PROFILE Lab STAT Smoldering multiple myeloma (SMM) Every Month for 12 Occurrences starting 10/11/2023 until 10/10/2024 IGG Lab Routine Smoldering multiple myeloma (SMM) Every Month for 12 Occurrences starting 10/11/2023 until 10/10/2024 Scheduled Procedures Name Priority Associated Diagnoses Date/Ti [...] pancreas documented in this encounter Care Teams Supervisor Painting Department Relationship Specialty Start Date End Date Ofelia Garrett MD [address] [place] [address] [place] [address] PCP - General 06/21/01 documented as of this encounter
--- OUTSIDE RECORDS SUMMARY | 2023-10-24 07:29 | External Medical Summary | Summary of Care ---
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 Increased risk for Hereditary Paraganglioma Pheochromocytoma Syndrome. [...] 1:00 PM EDT Pharmacy Pharmacy Hematology Oncology [place] [address] [place] [address] [facility], [facility] Clinic Hem/[place]c [facility] [place] [address] 10/16/2023 1:45 PM EDT Nurse Only Hematology/Oncol ogdebbie Momin [place] [address] [place] [address] Liliane, Nurse Hem Onc [facility] [address] [place] [address] 11/26/2023 8:00 AM EDT Office Visit Hematology/Oncol linette [place] [address] [place] [phone] Rosie Church MD [address] [place] [address] 12/10/2023 8:00 AM EDT Hospital Encounter ENDO [facility], Endoscopy Room [facility] [address] [place] [phone] Adama Dutta MD [address] [place] [address] 12/10/2023 8:00 AM EDT - 12/10/2023 8:45 AM EDT Surgery ENDO [facility], Endoscopy Room [facility] [address] [place] [phone] Adama Dutta MD [address] [place] [address] ESOPHAGOGASTRODUODENOSCOPY (EGD), FLEXIBLE, TRANSORAL, ENDOSCOPIC ULTRASOUND 12/12/2023 9:40 AM EDT Office Visit Dermatology [facility] [address] [place] [address] Meliza Tao PA-C [address] [place] [phone] 05/06/2024 10:00 AM EDT Cardiac Studies Cardiology, [facility] [address] [place] [address] [place], Pacer Clinic [facility] [address] [place] [address] 07/24/2024 11:00 AM EST Imaging Radiology [address] [place] [address] Scheduled Procedures Name Priority Associated Diagnoses Date/Ti [...] filedocumented as of this encounter Care Teams Automatic Lathe Setter Relationship Specialty Start Date End Date Ofelia Garrett MD [address] [place] [address] [place] [address] PCP - General 06/21/01 documented as of this encounter
--- OUTSIDE RECORDS SUMMARY | 2023-10-24 07:29 | External Medical Summary | Summary of Care ---
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 Increased risk for Hereditary Paraganglioma Pheochromocytoma Syndrome. [...] Sign Reading Time Taken Comments Blood Pressure - - Pulse - - Temperature - - Respiratory Rate - - Oxygen Saturation - - Inhaled Oxygen Concentration - - Weight - - Height 162.6 cm (5' 4") 10/12/2023 11:22 AM EDT Body Mass Index - - documented in this encounter Plan of Treatment Upcoming Encounters Date Type Department Care Team (Latest Contact Info) Description 10/12/2023 1:00 PM EDT Pharmacy Pharmacy Hematology Oncology [facility] [address] [place] [address] [facility], [facility] Clinic Hem/Onc [address] [place] [address] 10/16/2023 1:45 PM EDT Nurse Only Hematology/Oncol [place] [address] [place] [address] Liliane, Nurse Hem Onc [place] [address] [place] [address] [address] 11/26/2023 8:00 AM EDT Office Visit Hematology/Oncol [place] [address] [place] [address] [address] Rosie Church MD [address] [place] [address] 12/10/2023 8:00 AM EDT Hospital Encounter ENDO [facility], Endoscopy Room [facility] [address] [place] [phone] Adama Dutta MD [address] [place] [address] 12/10/2023 8:00 AM EDT - 12/10/2023 8:45 AM EDT Surgery ENDO [facility], Endoscopy Room [facility] [address] [place] [address] Adama Dutta MD [address] [place] [address] ESOPHAGOGASTRODUODENOSCOPY (EGD), FLEXIBLE, TRANSORAL, ENDOSCOPIC ULTRASOUND 12/12/2023 9:40 AM EDT Office Visit Dermatology [facility] [address] [place] [address] Meliza Tao PA-C [address] [place] [phone] 05/06/2024 10:00 AM EDT Cardiac Studies Cardiology, [facility] [address] [place] [address] [place] [address] [facility] [address] [place] [address] 07/24/2024 11:00 AM EST Imaging Radiology [address] [place] [address] Scheduled Orders Name Type Priority Associated Diagnoses Orde r Schedule TYPE AND SCREEN Lab Routine Smoldering multiple myeloma (SMM) Expected: 10/12/2023, Expires: 11/11/2024 ABO/RH Lab Routine Smoldering multiple myeloma (SMM) Expected: 10/12/2023, Expires: 11/11/2024 Scheduled Procedures Name Priority Associated Diagnoses Date/Ti [...] pancreas documented in this encounter Care Teams Human Service Technician Relationship Specialty Start Date End Date Ofelia Garrett MD [address] [place] [address] [place] [address] PCP - General 06/21/01 documented as of this encounter
--- OUTSIDE RECORDS SUMMARY | 2023-10-24 07:29 | External Medical Summary | Summary of Care ---
Author Name Unknown Organization [facility] Address [address] [place] [address] Phone [phone] Care Team Providers Care Staking Press Operator Name Role Phone Ofelia Garrett MD Primary Care Provider +1 -[phone] Encounter Details Date Type Department Care Team (Late st Contact Info) Description 10/11/2023 Orders Only Hematology/Oncology [facility] [place] 200 [facility] [place] [phone] Rosie Church MD [address] [place] [address] Allergies Active Allergy Reactions Criticality Noted Date Comments Diltiazem Hcl 10/20/2008 Sulfa Antibiotics 01/17/2001 rash Wound Dressing Adhesive 03/23/2023 Device implant dressing documented as of this encounter (statuses as of 10/11/2023) Medications Medication Sig Dispensed Refills Start Date [...] as of this encounter (statuses as of 10/11/2023) Active Problems Problem Noted Date Diagnosed Date 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 Increased risk for Hereditary Paraganglioma Pheochromocytoma Syndrome. [...] as of this encounter (statuses as of 10/11/2023) Resolved Problems Problem Noted Date Diagnosed Date Resolved Date dysplastic nevi 08/04/2002 07/21/2015 HTN, goal below 140/90 12/21 PURE HYPERCHOLESTEROLEM 06/22 Overview: Per Lipid Taxonomy. documented as of this encounter (statuses as of 10/11/2023) Immunizations Name Administration Dates Next Due Seasonal [...] EDT Hospital Encounter [facility]O [facility], Endoscopy Room [facility] [address] [place] [address] Adama Dutta MD 132 [place] [address] 12/10/2023 8:00 AM EDT - 12/10/2023 8:45 AM EDT Surgery ENDO [facility], Endoscopy Room [facility] [address] [place] [address] Adama Dutta MD [address] [place] [address] ESOPHAGOGASTRODUODENOSCOPY (EGD), FLEXIBLE, TRANSORAL, ENDOSCOPIC ULTRASOUND 12/12/2023 9:40 AM EDT Office Visit Dermatology [facility] [address] [place] [address] Meliza Tao PA-C 200 [facility] [place] [address] 05/06/2024 10:00 AM EDT Cardiac Studies Cardiology, [facility] [address] [place] [address] [place], Pacer [address] [place] [address] 07/24/2024 11:00 AM EST Imaging Radiology [address] [place] [address] Scheduled Procedures Name Priority Associated Diagnoses Date/Ti [...] filedocumented as of this encounter Care Teams Staking Press Operator Relationship Specialty Start Date End Date Ofelia Garrett MD [address] [place] [address] [place] [address] PCP - General 06/21/01 documented as of this encounter
--- OUTSIDE RECORDS SUMMARY | 2023-10-24 07:30 | External Medical Summary ---
Author Name Unknown Address Unknown Organization K01:LABORATORY [facility] [place] - 100 [facility] [address] Laboratory Report Ordering Provider Test Date Status ASHOK MULLER 09/17/2023 08:34:50 Final Observation Date Value Abnormality Reference (Units) Status PARAPROTEIN NORMAL/ABNORMAL 4 08:34:50 Abnormal Abnormal Normal Final Protein 4 08:34:50 7.5 6.0-8.3 (g/dL) Final Albumin/Protein.tota l [Pure mass fraction] in Serum or Plasma by Electrophoresis 08:34:50 3.24 Below low normal 3.30-4.40 (g/dL) Final Alpha 1 globulin/Protein.tot al [Pure mass fraction] in Serum or Plasma by Electrophoresis 4 08:34:50 0.18 0.10-0.30 (g/dL) Final Alpha 2 globulin/Protein.tot al [Pure mass fraction] in Serum or Plasma by Electrophoresis 4 08:34:50 1.06 Above high normal 0.60-1.00 (g/dL) Final Beta globulin/Protein.tot al [Pure mass fraction] in Serum or Plasma by Electrophoresis 4 08:34:50 2.69 Above high normal 0.80-1.30 (g/dL) Final Gamma globulin/Protein.tot al [Pure mass fraction] in Serum or Plasma by Electrophoresis 4 08:34:50 0.33 Below low normal 0.70-1.70 (g/dL) Final Protein Fractions [Interpretation] in Serum or Plasma by Electrophoresis Narrative 4 08:34:50 Abnormal. A paraprotein is present that has been previously identified as a monoclonal IgG kappa. Unable to reliably identify or accurately quantify the paraprotein due to its migration in the beta region. Please order serum free light chains, beta-2 Final Protein Fractions [Interpretation] in Serum or Plasma by Electrophoresis Narrative 4 08:34:50 microglobulin, and the quantitative immunoglobulins for disease monitoring. Decreased gamma fraction. Final Performing Location LABORATORY [facility] - [address] [facility] [address]
--- OUTSIDE RECORDS SUMMARY | 2023-10-24 07:30 | External Medical Summary ---
Author Name Unknown Address Unknown Organization : Laboratory Report Ordering Provider Test Date Status ASHOK MULLER 09/17/2023 08:34:50 Final Observation Date Value Abnormality Reference (Units ) Status Beta-2 Microglobulin 09/17/2023 08:34:50 4.62 Above high normal <=2.51 (mg/L) Final This test was performed usin g the Zhang
Immunoturbidimetric method. Values obtained
from different assay methods cannot be used
interchangeably. Beta-2 Microglobulin levels,
regardless of value, should not be interpreted
as absolute evidence of the presence or absence of
disease.

Test Performed at:
[facility]
[address] [facility]
[place] [address]
Omar Goldman M.D., Ph.D.,Director of Laboratories Performing Location
--- OUTSIDE RECORDS SUMMARY | 2023-10-24 07:30 | External Medical Summary ---
Author Name Unknown Address Unknown Organization [id number]:[facility]ORY [facility] [place] - [address] [facility] [place] [address] Laboratory Report Ordering Provider Test Date Status ASHOK MULLER 09/17/2023 08:34:50 Final Observation Date Value Abnormality Reference (Units ) Status SYNC LEUKOCYTES IN BLOOD BY AUTOMATED COUNT 09/17/2023 08:34:50 4.51 4.00-10.80 (K/uL) Final Segs 09/17/2023 08:34:50 63.0 40.0-75.0 (%) Final Lymphs % 09/17/2023 08:34:50 29.9 18.0-42.0 (%) Final Monos 09/17/2023 08:34:50 4.9 1.0-11.0 (%) Final Eosinophils 09/17/2023 08:34:50 1.6 0.0-6.0 (%) Final Basos 09/17/2023 08:34:50 0.2 0.0-2.0 (%) Final Immature Granulocyte, Percent 09/17/2023 08:34:50 0.4 0.0-2.0 (%) Final Absolute Segs 09/17/2023 08:34:50 2.84 1.80-7.70 (K/uL) Final Lymphs, absolute 09/17/2023 08:34:50 1.35 1.00-4.80 (K/ul) Final Monos, Abs 09/17/2023 08:34:50 0.22 0.00-1.10 (K/uL) Final Eos, Abs 09/17/2023 08:34:50 0.07 0.00-0.70 (K/uL) Final Basos, Abs 09/17/2023 08:34:50 0.01 0.00-0.20 (K/uL) Final Immature Granulocytes, Number 09/17/2023 08:34:50 0.02 0.00-0.20 (K/uL) Final Performing Location [facility] [place] - [address] [facility] [address]
--- OUTSIDE RECORDS SUMMARY | 2023-10-24 07:30 | External Medical Summary ---
Author Name Unknown Address Unknown Organization [id number]:[facility] [place] - [facility] [address] Laboratory Report Ordering Provider Test Date Status ASHOK MULLER 09/17/2023 08:34:50 Final Observation Date Value Abnormality Reference (Units ) Status WBC, Total 09/17/2023 08:34:50 4.51 4.00-10.80 (K/uL) Final RBC 09/17/2023 08:34:50 3.80 3.85-5.15 (M/uL) Final Hemoglobin 09/17/2023 08:34:50 11.6 Below low normal 12.0-15.3 (g/dL) Final HCT 09/17/2023 08:34:50 35.6 Below low normal 36.0-45.2 (%) Final MCV 09/17/2023 08:34:50 93.7 81.5-97.5 (fL) Final MCH 09/17/2023 08:34:50 30.5 27.0-34.0 (pg) Final MCHC 09/17/2023 08:34:50 32.6 32.0-36.0 (g/dL) Final RDW 09/17/2023 08:34:50 13.7 11.5-15.5 (%) Final Platelets 09/17/2023 08:34:50 272 140-400 (K/uL) Final MPV 09/17/2023 08:34:50 10.1 6.6-11.1 (fL) Final Nucleated erythrocytes/100 leukocytes [Ratio] in Blood by Automated count 09/17/2023 08:34:50 0 <=0 (/100 WBCs) Final Performing Location [facility]ORY [facility] [place] - [address] [facility] [address]
--- OUTSIDE RECORDS SUMMARY | 2023-10-24 07:30 | External Medical Summary ---
Author Name Unknown Address Unknown Organization [id number]:[facility]ATORY [facility] [place] - [facility] [place] [address] [place] [address] Laboratory Report Ordering Provider Test Date Status ASHOK MULLER 09/17/2023 08:34:50 Final Observation Date Value Abnormality Reference (Units ) Status Angie light chains, Free, Serum 09/17/2023 08:34:50 518.00 Above high normal 3.30-19.40 (mg/L) Final Lambda light chains, free, Serum 09/17/2023 08:34:50 10.01 5.71-26.30 (mg/L) Final KAPPA LAMBDA FLC RATIO 09/17/2023 08:34:50 51.75 Above high normal 0.26-1.65 Final Performing Location LABORATORY [facility] [place] - [facility] [place] [address]
--- OUTSIDE RECORDS SUMMARY | 2023-10-24 07:30 | External Medical Summary ---
Author Name Unknown Address Unknown Organization [id number]:[facility] [place] [address] [facility] [place] [address] Laboratory Report Ordering Provider Test Date Status ASHOK MULLER 09/17/2023 08:34:50 Final Observation Date Value Abnormality Reference (Units ) Status BUN 09/17/2023 08:34:50 23 Above high normal 6-20 (mg/dL) Final Creatinine 09/17/2023 08:34:50 1.1 Above high normal 0.5-1.0 (mg/dL) Final Glomerular filtration rate/1.73 sq M.predicted [Volume Rate/Area] in Serum, Plasma or Blood by Creatinine-based formula (CKD-EPI) 09/17/2023 08:34:50 51 Below low normal >=60 (mL/min) Final eGFR is calculated based on the CKD-EPI 2020 equation SODIUM 09/17/2023 08:34:50 135 135-146 (m mol/L) Final Potassium 09/17/2023 08:34:50 3.8 3.5-5.1 (m mol/L) Final Cl 09/17/2023 08:34:50 98 98-107 (mm ol/L) Final CO2 09/17/2023 08:34:50 25 22-32 (mmo l/L) Final Anion gap 09/17/2023 08:34:50 12 7-15 (mmol /L) Final Glucose 09/17/2023 08:34:50 92 70-120 (mg /dL) Final Albumin 09/17/2023 08:34:50 3.5 Below low normal 3.8 -5.0 (g/dL) Final AST (Aspartate aminotransferase) 09/17/2023 08:34:50 16 10-35 (U/L) Fin al Alk Phos 09/17/2023 08:34:50 61 35-130 (U/ L) Final Bilirubin, Total 09/17/2023 08:34:50 0.5 <=1 .2 (mg/dL) Final Calcium 09/17/2023 08:34:50 9.8 8.4-10.2 ( mg/dL) Final Protein 09/17/2023 08:34:50 7.5 6.0-8.3 (g /dL) Final ALT (Alanine aminotransferase) 09/17/2023 08:34:50 18 10-35 (U/L) Michael jose Performing Location [facility] [place] - [address] [facility] [address]
--- OUTSIDE RECORDS SUMMARY | 2023-10-24 07:30 | External Medical Summary ---
Author Name Unknown Address Unknown Organization K01:LAB[facility]ATORY [facility] - [address] [place] [address] Laboratory Report Ordering Provider Test Date Status TRISTA MULLERON 09/17/2023 08:34:50 Final Observation Date Value Abnormality Reference (Units ) Status IgG 09/17/2023 08:34:50 2042 Above high normal 70 0-1600 (mg/dL) Final IgA 09/17/2023 08:34:50 11 Below low normal 70- 400 (mg/dL) Final IgM 09/17/2023 08:34:50 11 Below low normal 40- 230 (mg/dL) Final Performing Location LABORATORY [facility] - [address] [place] [address]
--- OUTSIDE RECORDS SUMMARY | 2023-10-24 07:30 | External Medical Summary | Summary of Care ---
Author Name Unknown Organization [facility] Address [address] [place] [address] Phone [phone] Care Team Providers Care Piledriver Carpenter Name Role Phone Ofelia Garrett MD Primary Care Provider [phone] Reason for Visit * Reason Comments Outpatient Testing Encounter Details Date Type Department Care Team (Late st Contact Info) Description 09/17/2023 8:40 AM EST Laboratory Laboratory [address] [place] [id number] [place] [address] MGUS (monoclonal gammopathy of unknown significance); Smoldering multiple myeloma (SMM) Allergies Active Allergy Reactions Criticality Noted Date Comments Diltiazem Hcl 10/20/2008 Sulfa Antibiotics 01/17/2001 rash Wound Dressing Adhesive 03/23/2023 Device implant dressing documented as of this encounter (statuses as of 09/17/2023) Medications Medication Sig Dispensed Refills Start Date End Date Status DAILY MULTIVITAMIN PO TABS 1 tqab daily 0 Active ASPIRIN 81 MG PO TBEC 1 tab daily 0 Ac tive FEXOFENADINE HCL 180 MG PO TABS As needed 0 Active amLODIPine (NORVASC) 10 MG Tablet Take by mouth daily. Every morning. 1 06/25/2015 Active metoprolol succinate XL (TOPROL XL) 25 MG TB24 Take by mouth at bedtime. 12.5 mg daily 1 06/07/2015 Active Cholecalciferol 5000 UNITS TABS Take 5,000 Units by mouth daily. 0 Active Probiotic Product (PROBIOTIC & ACIDOPHILUS EX ST) Capsule Take 1 Cap by mouth three times a day with meals. 0 Active lisinopril (PRINIVIL) 20 MG Tablet Take 1 Tablet by mouth in the morning and 1 Tablet before bedtime. 0 Active hydrochlorothiazide (HYDRODIURIL) 12.5 MG CapsuleIndications:Hy pertension goal BP (blood pressure) < 140/90 Take 1 Cap by mouth daily. 30 Cap 5 07/03/2017 Active Krill Oil 300 MG Capsule Take 1 Capsule by mouth in the morning. 0 Active Ezetimibe 10 MG Oral Tablet Take 1 Tablet by mouth in the morning. Takes in the evening. 0 Active Levothyroxine Sodium 25 MCG Oral Tablet (Levoxyl) Take 1 Tablet by mouth daily first thing in the morning. 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 Increased risk for Hereditary Paraganglioma Pheochromocytoma Syndrome. [...] as of this encounter (statuses as of 09/17/2023) Resolved Problems Problem Noted Date Diagnosed Date Resolved Date dysplastic nevi 08/04/2002 07/21/2015 HTN, goal below 140/90 12/21 PURE HYPERCHOLESTEROLEM 06/22 Overview: Per Lipid Taxonomy. documented as of this encounter (statuses as of 09/17/2023) Immunizations Name Administration Dates Next Due Seasonal [...] Department Care Team (Latest Contact Info) Description 09/25/2023 9:30 AM EST Office Visit Hematology/On[place] lin[place] [address] [place] [address] Rosie Church MD [address] [place] [address] 12/10/2023 8:00 AM EDT Hospital Encounter ENDO [facility], Endoscopy Room [facility] [address] [place] [phone] Adama Dutta MD [address] [place] [address] 12/10/2023 8:00 AM EDT - 12/10/2023 8:45 AM EDT Surgery ENDO [facility], Endoscopy Room [facility] [address] [place] [phone] Adama Dutta MD [address] [place] [address] ESOPHAGOGASTRODUODENOSCOPY (EGD), FLEXIBLE, TRANSORAL, ENDOSCOPIC ULTRASOUND 12/12/2023 9:40 AM EDT Office Visit Dermatology 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) 09/17/2023 8:34 AM EST COMPREHENSIVE METABOLIC PANEL Lab STAT 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) 09/17/2023 8:34 AM EST SERUM PROTEIN ELECTROPHORESIS REFLEX PROFILE Lab STAT 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) 09/17/2023 8:34 AM EST SERUM FREE LIGHT CHAINS Lab STAT 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) 09/17/2023 8:34 AM EST IMMUNOGLOBULIN QUANTITATIVE Lab STAT 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) 09/17/2023 8:34 AM EST [id number], SERUM Lab STAT 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) 09/17/2023 8:34 AM EST CBC Lab STAT 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) 09/17/2023 8:34 AM EST DIFFERENTIAL, AUTOMATED Lab STAT 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) 09/17/2023 8:34 AM EST Scheduled Procedures Name Priority Associated Diagnoses Date/Ti [...] 02/23/2023, 09/20, 06/06/2021, Additional history exists GFR 07/11/2024 07/11/2023, 06/22, 04/10/2023, Additional history exists DXA Scan 03/10/2026 03/10/2019, [...] as of this encounter Visit Diagnoses Diagnosis MGUS (monoclonal gammopathy of unknown significance) Monoclonal paraproteinemia Smoldering multiple myeloma (SMM) Multiple myeloma, without mention of having achieved remission Pancreatic lesion Unspecified disease of pancreas documented in this encounter Care Teams Piledriver Carpenter Relationship Specialty Start Date End Date Ofelia Garrett MD [address] [place] [address] [place] [address] PCP - General 06/21/01 documented as of this encounter
[2023-10-24] MEDS ORDERED: NON-FORMULARY MEDICATION (L. Acidophilus/Bifid. Animalis [Probiotic] 5 billion cell Capsul PO SCH (08:00)
[2023-10-24] MEDS: DOCUSATE SODIUM 100 MG CAP PO SCH (08:28)
[2023-10-24] MEDS: CHOLECALCIFEROL 125 MCG (5,000 UNITS) TAB PO SCH (08:28)
[2023-10-24] MEDS: GABAPENTIN 100 MG CAP PO SCH (08:28)
[2023-10-24] MEDS: FEXOFENADINE HCL 180 MG TAB PO SCH (08:28)
[2023-10-24] MEDS: ENOXAPARIN INJ 40 MG/0.4 ML SYR SQ SCH (08:29)
[2023-10-24] MEDS: amLODIPine BESYLATE 5 MG TAB PO SCH (08:29)
[2023-10-24] MEDS: PSYLLIUM or GUAR GUM FIBER 4GM PACKET PO SCH (08:29)
[2023-10-24] MEDS: lisinopril 20 MG TAB PO SCH (08:29)
--- NOTE | 2023-10-24 09:47 | Cardiology Consultation ---
Date of Consultation October 24, 2023 Assessment & Plan (1) Hypertensive urgency: (2) Elevated troponin: (3) Pacemaker: Plan Patient admitted with hypertensive urgency. Minimally elevated troponin but flat, and actually improved from February 2023 admission. EKG with paced rhythm, no acute ischemic changes noted. No CP/SOB on admission to suggest anginal equivalent. Findings not consistent with acute ACS. Continue amlodipine 10 mg daily, lisinopril 20 mg BID. Given history of renal cell carcinoma, prior nephrectomy, and recent issues with dehydration, will avoid resuming diuretic. Add carvedilol 3.125 mg BID and titrate as needed. She was previously on beta jeffrey but discontinued when she developed 2:1 AV block/bradycardia. Now has pacemaker to avoid bradycardic events. Echo this admission with preserved LVEF, no wall motion abnormalities. Likely stable for discharge later today. Monitor BP Follow up with PCP/Cardiology on discharge. Case discussed with Dr. Thompson I spent a total of 45 minutes on the date of service in preparation, delivery, and documentation of the care provided to this patient, excluding any time spent in the performance of separately billed services. Laura Chinchilla PA-C Department of Cardiology, [facility] This chart was completed in part utilizing Speech Voice Recognition Software. Grammatical errors, random word insertions, pronoun errors, and incomplete sentences are an occasional consequence of this system due to software limitations, ambient noise, and hardware issues. Any formal questions or concerns about the content, text, or information contained within the body of this dictation should be directly addressed to the provider for clarification. Supervising Physician Co-Signing Physician Notes Attending attestation: Case reviewed with the advanced practitioner. I have personally performed a history and physical examination on the patient. I have reviewed the advanced practitioner's documentation on the date of service referenced in note, and I agree with, and take responsibility for the plan of care. Patient feeling improved. High sensitive troponin I mildly elevated x 4 measurements with a flat trend consistent with myocardial strain in the setting of LVH and hypertension. Echocardiogram reveals mild concentric left ventricular hypertrophy. Agree with addition of carvedilol. If feeling well and blood pressure continues to improve upon reassessment, consider discharge. I spent a total of 20 minutes coordinating, documenting, and providing care for this patient excluding time spent in the performance of separately billed services or time spent by another provider. Karsten Donna, DO History of Present Illness Reason for Consultation: HTN urgency Requesting Physician: Dr. Kim Attending Physician: Dr. Thompson History of Present Illness Patient is a 78 year old female who was admitted to [facility] with HTN urgency. Known to [facility], Dr. Ojeda History includes: 1. Hypertension 2. Dyslipidemia 3. MGUS with Smoldering multiple myeloma, but soon to start chemo 4. SSS with dual lead pacemaker implantation in February 2023 5. Renal cell carcinoma s/p nephrectomy Last month patient developed viral illness. Not eating/drinking as normal. During this time she had several episodes of dizziness and one syncopal event. She went to PCP and found to be significantly dehydrated with FIORELLA. HCTZ was stopped. Since that time, patient's BP was within normal range, until this week. Patient had appt with oncology/hematology earlier this week and found out she should start chemo therapy for her smoldering multiple myeloma. She admits she was quite anxious about her current health state. The next day she noted some SOB and visual changes. She took her BP and readings were significantly elevated in the 180's/90's. She took one of her prior HCTZ tablets but BP remained high > 200 and she came to the ER. She denies chest pain or dyspnea. No palpitations or tachypalpitations. No dizziness or headache. No fever or chills. No orthopnea, PND or edema. At time of consult, patient resting in bed feeling well. Hoping for discharge later today. she is concerned with resuming hctz due to prior issues with FIORELLA (single kidney) and dehydration. She was previously on metoprolol but this was stopped at time of SSS/bradycardia prior to pacemaker implant. Allergies Allergy/AdvReac Type Severity Reaction Status Date / Time adhesive Allergy Intermediate SKIN Verified 10/23/23 21:37 IRRITATION diltiazem Allergy Mild RASH Verified 10/23/23 21:37 Sulfa (Sulfonamide Allergy Mild RASH Verified 10/23/23 21:37 Antibiotics) Home Medications Medication Instructions Recorded Confirmed Type cholecalciferol (vitamin D3) 25 5,000 unit PO DAILY 11/16/20 10/23/23 History mcg (1,000 unit) tablet multivitamin,tx-minerals 1 tab PO DAILY 11/16/20 10/23/23 History amlodipine 10 mg tablet 10 mg PO QAM 03/12/23 10/23/23 History ezetimibe 10 mg tablet 10 mg PO QPM 03/12/23 10/23/23 History gabapentin 100 mg capsule 100 mg PO QID 03/12/23 10/23/23 History levothyroxine 25 mcg tablet 25 mcg PO DAILYBB 03/12/23 10/23/23 History Lactobacil.acidophilus-Bifido.animalis 1 cap PO TIDM 10/23/23 10/23/23 History 5 billion cell sprinkle capsule (Probiotic) docusate sodium 100 mg capsule 100 mg PO BID 10/23/23 10/23/23 History fexofenadine 180 mg tablet 180 mg PO DAILY 10/23/23 10/23/23 History lisinopril 20 mg tablet 20 mg PO BID 10/23/23 10/23/23 History melatonin 3 mg tablet 3 - 9 mg PO HS PRN Sleep 10/23/23 10/23/23 History psyllium husk (with sugar) 3 1 tbsp PO DAILY 10/23/23 10/23/23 History gram/7 gram oral powder (Metamucil Free) Patient History Medical History Actinic keratosis Cholelithiasis Anxiety Dyslipidemia 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, non-toxic Hypothyroidism CKD (chronic kidney disease) stage 2, GFR 60-89 ml/min Urethral caruncle Hypertension Asymptomatic microscopic hematuria Renal cell carcinoma Surgical History History of tonsillectomy and adenoidectomy Hx of hernia repair History of nephrectomy, right History of cataract surgery Family History Aunt Diabetes Mother Diabetes Colorectal cancer Hypertension Son Diabetes Father Heart disease Hypertension Other Breast cancer No significant family history Social History Smoking Status: Never smoker Do You Dip or Chew Tobacco: No; Hx Alcohol Use: No Hx Substance Use: No Preferred Language: Urdu Communication Ability: Effective Soft Sugar Operator Head Required: No Beliefs That Will Affect Care: None marital status: Current Living Situation: Spouse current occupational status: retired Feels Safe at Home: Yes Safety Concerns: Feels Safe At This Time Assistive Devices: None Review of Systems Review of Systems: All systems reviewed & are unremarkable except as noted in HPI & below Physical Exam Constitutional: WD/WN, vitals as above well developed and well nourished Respiratory: normal respiratory effort, lungs clear to auscultation Cardiovascular: Rate/Rhythm: regular rate and regular rhythm Heart Sounds: normal S1 and normal S2; no murmur Vessels: no JVD Extremities: no edema Neurologic: PERRL, EOMI, accommodation nl, no face palsy, no dysarthria Results & Data Vital Signs (Past 12 Hours) Vital Signs Pulse Pulse Resp BP BP Pulse Ox Pulse Ox 10/24/23 08:00 60 15 145/80 H 97 10/24/23 07:30 67 20 148/81 H 97 10/24/23 07:00 60 20 150/82 H 98 10/24/23 06:57 61 10/24/23 06:43 60 16 147/76 H 100 10/24/23 06:00 147/76 H 10/24/23 06:00 60 12 100 10/24/23 05:30 156/86 H 10/24/23 05:30 63 14 99 10/24/23 05:00 147/90 H 10/24/23 05:00 71 13 99 10/24/23 04:30 142/87 H 10/24/23 04:30 60 13 99 10/24/23 04:00 113/66 10/24/23 04:00 61 21 99 10/24/23 03:30 118/69 10/24/23 03:30 60 16 99 10/24/23 03:29 84 L 10/24/23 03:04 62 18 150/82 H 99 10/24/23 03:04 99 10/24/23 03:00 150/82 H 10/24/23 03:00 65 15 97 10/24/23 02:31 77 21 97 10/24/23 02:31 172/87 H 10/24/23 02:20 69 10/24/23 02:00 76 16 93 10/24/23 02:00 148/82 H 10/24/23 02:00 69 16 148/82 H 96 10/24/23 01:30 140/77 10/24/23 01:30 82 17 92 10/24/23 01:06 115 H 11 L 10/24/23 01:00 80 16 140/77 93 10/24/23 00:18 68 15 166/102 H 96 10/24/23 00:00 68 21 95 10/24/23 00:00 166/102 H 10/23/23 23:38 164/88 H 10/23/23 23:38 64 17 95 10/23/23 23:38 65 20 164/88 H 97 10/23/23 23:30 65 18 94 10/23/23 23:00 63 15 95 10/23/23 22:30 65 19 95 10/23/23 22:27 74 10/23/23 22:26 69 17 96 O2 Del Method O2 Del Method O2 Flow Rate O2 Flow Rate 10/24/23 08:00 Nasal Cannula 2 10/24/23 07:30 Nasal Cannula 2 10/24/23 07:00 Nasal Cannula 2 10/24/23 06:57 10/24/23 06:43 Nasal Cannula 2 10/24/23 06:00 10/24/23 06:00 Nasal Cannula 2 10/24/23 05:30 10/24/23 05:30 Nasal Cannula 2 10/24/23 05:00 10/24/23 05:00 Nasal Cannula 2 10/24/23 04:30 10/24/23 04:30 Nasal Cannula 2 10/24/23 04:00 10/24/23 04:00 Nasal Cannula 2 10/24/23 03:30 10/24/23 03:30 Nasal Cannula 2 10/24/23 03:29 Room Air, Nasal Cannula 10/24/23 03:04 Nasal Cannula 2 10/24/23 03:04 Nasal Cannula 2 10/24/23 03:00 10/24/23 03:00 Nasal Cannula 2 10/24/23 02:31 Nasal Cannula 2 10/24/23 02:31 10/24/23 02:20 10/24/23 02:00 Room Air 10/24/23 02:00 10/24/23 02:00 Room Air 10/24/23 01:30 10/24/23 01:30 Room Air 10/24/23 01:06 10/24/23 01:00 Room Air 10/24/23 00:18 Room Air 10/24/23 00:00 Room Air 10/24/23 00:00 10/23/23 23:38 10/23/23 23:38 Room Air 10/23/23 23:38 Room Air 10/23/23 23:30 Room Air 10/23/23 23:00 10/23/23 22:30 10/23/23 22:27 10/23/23 22:26 Laboratory Results Cardiac Enzymes 10/23/23 10/23/23 10/24/23 Range/Units 17:56 20:42 05:21 AST 18 (13-39) U/L Troponin I High Sens 23.3 H 26.4 H 32.2 H (0-14) pg/ml 10/24/23 Range/Units 11:09 AST (13-39) U/L Troponin I High Sens 26.1 H (0-14) pg/ml CBC 10/23/23 10/24/23 Range/Units 17:56 05:21 WBC 7.27 5.09 (4.8-10.8) K/ul RBC 4.08 L 3.43 L (4.20-5.40) M/uL Hgb 12.2 10.4 L (12.0-16.0) g/dl Hct 36.7 L 31.0 L (37.0-47.0) % Plt Count 279 246 (130-400) K/uL Neut # (Auto) 4.40 3.01 (1.40-6.50) K/uL Lymph # (Auto) 2.44 1.73 (1.20-3.40) K/uL [facility] # (Auto) 0.31 0.27 (0.11-0.59) K/uL Eos # (Auto) 0.07 0.05 (0.00-0.50) K/uL Baso # (Auto) 0.02 0.01 (0.00-0.20) K/uL Comprehensive Metabolic Panel 10/23/23 10/24/23 Range/Units 17:56 05:21 Sodium 135 L 140 (136-145) mmol/L Potassium 3.6 4.0 (3.5-5.1) mmol/L Chloride 102 108 H (98-107) mmol/L Carbon Dioxide 24 24 (21-32) mmol/L BUN 21 19 (6-23) mg/dl Creatinine 1.09 1.11 (0.6-1.2) mg/dl Glucose 99 89 (70-99(Fasting)) mg/dl Calcium 9.9 9.3 (8.6-10.3) mg/dl AST 18 (13-39) U/L ALT 14 (7-52) U/L Alkaline Phosphatase 62 (34-104) U/L Total Protein 8.5 H (6.0-8.3) gm/dl Albumin 3.6 (3.4-5.0) gm/dl Intake and Output 10/23/23 10/24/23 10/24/23 22:59 06:59 14:59 Intake Total 473 / 473 Balance 473 / 473 Intake: Oral 473 / 473 Other: # Unmeasured Voids 1 Weight 77.1 kg 77.1 kg Weight Measurement Method Chair Scale Built in [facility] Diagnostic Findings Telemetry reviewed: Atrial sensed, ventricular paced rhythm in the 60's. EKG reviewed from 10/23/23: Atrial sensed, ventricular paced rhythm. no acute changes Echo reviewed from 10/24/23: Mild concentric LVH. Ejection fraction 55 to 60% with normal wall motion. Aortic valve sclerosis mild without stenosis. Grade 1 diastolic dysfunction. Compared to prior study in February 2023, pacemaker leads are now noted. There has been an interval improvement in the pulmonary artery systolic pressure. Device interrogation reviewed from Jul 2023: appropriate function and battery longevity Medications Administered Current Inpatient Medications Acetaminophen (Acetaminophen 325 Mg Tab) 650 mg PO Q4H PRN PRN Reason: Pain or Fever Stop: 11/23/23 03:03 Amlodipine Besylate (Amlodipine Besylate 5 Mg Tab) 10 mg PO QAM [facility] Stop: 11/23/23 08:59 Last Admin: 10/24/23 08:29 Dose: 10 mg Carvedilol (Carvedilol 3.125 Mg Tab) 3.125 mg PO BIDM [facility] Stop: 11/23/23 13:49 Last Admin: 10/24/23 14:06 Dose: 3.125 mg Docusate Sodium (Docusate Sodium 100 Mg Cap) 100 mg PO BID [facility] Stop: 11/23/23 08:59 Last Admin: 10/24/23 08:28 Dose: 100 mg Ezetimibe (Ezetimibe 10 Mg Tab) 10 mg PO QPM [facility] Stop: 11/23/23 20:59 Enoxaparin Sodium (Enoxaparin Inj 40 Mg/0.4 Ml Syr) 40 mg SQ Q24H [facility] Stop: 11/23/23 08:59 Last Admin: 10/24/23 08:29 Dose: 40 mg Fexofenadine HCl (Fexofenadine Hcl 180 Mg Tab) 180 mg PO DAILY [facility] Stop: 11/23/23 08:59 Last Admin: 10/24/23 08:28 Dose: 180 mg Gabapentin (Gabapentin 100 Mg Cap) 100 mg PO QID [facility] Stop: 11/23/23 08:59 Last Admin: 10/24/23 14:08 Dose: 100 mg Labetalol HCl (Labetalol Hcl Iv 5 Mg/Ml 20ml) 10 mg IV Q4H PRN PRN Reason: SBP > 180 Stop: 11/23/23 03:03 Levothyroxine Sodium (Levothyroxine Sodium 25 Mcg Tablet) 25 mcg PO DAILYBB [facility] Stop: 11/23/23 06:29 Last Admin: 10/24/23 07:23 Dose: 25 mcg Lisinopril (Lisinopril 20 Mg Tab) 20 mg PO BID [facility] Stop: 11/23/23 08:59 Last Admin: 10/24/23 08:29 Dose: 20 mg Melatonin (Melatonin 3 Mg Tab) 3 - 9 mg PO HS PRN PRN Reason: Sleep Stop: 11/23/23 03:03 Nitroglycerin (Nitroglycerin Sl 0.4 Mg/Tab Tab) 0.4 mg SL Q5M PRN PRN Reason: Chest Pain Stop: 11/23/23 03:03 Psyllium Hydrophilic Mucilloid (Psyllium Or Guar Gum Fiber Powder Packet) 1 pkt PO DAILY [facility] Stop: 11/23/23 08:59 Last Admin: 10/24/23 08:29 Dose: 1 pkt Vitamin D (Cholecalciferol 125 Mcg (5,000 Units) Tab) 125 mcg PO QAM [facility] Stop: 11/23/23 08:59 Last Admin: 10/24/23 08:28 Dose: 125 mcg
--- OUTSIDE RECORDS SUMMARY | 2023-10-24 10:03 | External Medical Summary | Summary of Care ---
Author Name Unknown Organization [facility] Address [address] [place] [address] Phone [phone] Care Team Providers Care Customer Care Associate Name Role Phone Ofelia Garrett MD Primary Care Provider [phone] Reason for Visit * Reason Comments Medication Management Encounter Details Date Type Department Care Team (Late st Contact Info) Description 10/23/2023 1:30 PM EDT Pharmacy Pharmacy Hematology Oncology [facility] [address] [place] [address] [facility] Hem/Onc [address] [place], [place] [id number] Smoldering multiple myeloma* Allergies Active Allergy Reactions [...] 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 Increased risk for Hereditary Paraganglioma Pheochromocytoma Syndrome. 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 Church Additional Therapy: Daratumumab Dexamethasone Supportive Care Meds: None Prophylactic Meds: ASA Acyclovir Relevant Chronic Medications: Category Medications Pertinent Notes Antihypertensives Lisinopril 20mg daily Amlodipine 10mg daily Pt hx Thyroid Levothyroxine 25mcg daily Pt hx Cycle Dates C1 TBD C2 TBD Review of therapy: Line of therapy: first Previous therapy: none Assessment and Plan: Hepatitis B panel unremarkable - no further action needed Per discussion with KARTIK Nelson, Emili auth pending due to recent enrollment Once auth # obtained will send RX to [facility] Follow up: 2 days Earlene Bey, PharmD, BCOP Clinical Pharmacist, [facility] Oral Chemotherapy [facility] 10/23/2023, 2:55 PM Monitoring Parameters: Estimated CrCl Serum creatinine: 1.3 mg/dL (H) 10/22/23 1416 Estimated creatinine clearance: 36.8 mL/min (A) Hepatitis panel Latest Reference Range & Units 10/22/23 14:16 Hepatitis B Surface Antigen Negative Negative Hepatitis B Surface Antibody, Quantitative mIU/mL 21.3 HEPATITIS B SURFACE ANTIBODY Rpt Hepatitis B Surface Antibody, Interpretation Immune to Hepatitis B Virus Hepatitis B Surface Antibody, Qualitative Positive Hepatitis B Core Antibodies IgG and IgM Negative Negative test N/A - postmenopausal Suggested lab monitoring [...] > 1000, PLT > 30K Pertinent labs: N/A Time Spent on Encounter: 6 - 10 minutes Encounter Group: Hematology Encounter Interventions Item Category: Oral Chemotherapy Lenalidomide Problem/Rationale: Indication: Needs additional medication therapy - Untreated condition Pharmacist Intervention(s): Discussed patient with nursing and Lab monitoring Magnitude of Intervention: Monitoring with no interventions (Level 0) * Iris Guerra CPhT - 10/23/2023 12:25 PM EDT MEDICATION THERAPY MANAGEMENT LENALIDOMIDE TREATMENT STATUS NOTE Keysha Thomason [id number] Patient Phone Numbers Communication: Chart review TTreatment: Medication: Lenalidomide (Revlimid) Indication/Staging/Diagnosis Code: 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 Church Assessment and Plan: Yes/no Date Action Taken [place] plan entered? yes 10/12/23 Consent completed? yes 10/10/23 Intro/med rec completed? yes 10/15/23 Precert completed? yes 10/16/23 Approved Test claim completed? yes 10/16/23 Rx to [facility] Special[facility] Financial assistance needed? NA Physician signature? yes 10/16/23 Rx released? no Education completed? Hep B panel completed 10/21 - ready to release when appropriate [facility] will contact patient once med shipped/received to complete medication education Please refer to initial intake note for detailed review of regimen and patient- specific education points Iris Guerra [employer] [facility] Oral Chemotherapy Clinic 10/23/2023 12:31 PM Time Spent on Encounter: < 5 minutes documented in this encounter Plan of Treatment Upcoming Encounters Date Type Department Care Team (Latest Contact Info) Description 10/25/2023 1:30 PM EDT Pharmacy Pharmacy Hematology Oncology [place] [address] [place] [address] [facility] Hem/Onc [address] [place] [address] 11/26/2023 8:00 AM EDT Office Visit Hematology/Oncol [facility] [address] [place] [phone] Rosie Church MD [address] [place] [address] 12/10/2023 8:00 AM EDT Hospital Encounter ENDO [facility], Endoscopy Room [address] [place] [address] Adama Dutta MD [address] [place] [address] 12/10/2023 8:00 AM EDT - 12/10/2023 8:45 AM EDT Surgery ENDO [facility], Endoscopy Room [facility] [address] [place] [phone] Adama Dutta MD [address] [place] [address] ESOPHAGOGASTRODUODENOSCOPY (EGD), FLEXIBLE, TRANSORAL, ENDOSCOPIC ULTRASOUND 12/12/2023 9:40 AM EDT Office Visit Dermatology [facility] [address] [place] [address] Meliza Tao PA-C [address] [place] [address] 05/06/2024 10:00 AM EDT Cardiac Studies Cardiology, [facility] [address] [place] [address] [facility] [address] [place] [address] 07/24/2024 11:00 AM EST Imaging Radiology [address] [place] [address] Scheduled Procedures Name Priority Associated Diagnoses Date/Ti [...] pancreas documented in this encounter Care Teams Customer Care Associate Relationship Specialty Start Date End Date Ofelia Garrett MD [address] [place] [address] [place] [address] PCP - General 06/21/01 documented as of this encounter
--- OUTSIDE RECORDS SUMMARY | 2023-10-24 10:03 | External Medical Summary | Summary of Care ---
Author Name Unknown Organization [facility] Address [address] [place] [address] Phone [phone] Care Team Providers Care Audio Visual Coordinator Name Role Phone Ofelia Garrett MD Primary Care Provider [phone] Encounter Details Date Type Department Care Team (Late st Contact Info) Description 10/12/2023 Orders Only Hematology/Oncology [facility] [place] [address] [facility] [place] [phone] Rosie Church MD [address] [facility] [place] [address] Screening for viral disease* Allergies Active Allergy [...] 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 Increased risk for Hereditary Paraganglioma Pheochromocytoma Syndrome. [...] Department Care Team (Latest Contact Info) Description 11/26/2023 8:00 AM EDT Office Visit Hematology/Oncol ogy [facility] [place] [address] [phone] Rosie Church MD [address] [facility] [place] [address] 12/10/2023 8:00 AM EDT Hospital Encounter ENDO [facility], Endoscopy Room [facility] [address] [place] [phone] Adama Dutta MD [address] [place] [address] 12/10/2023 8:00 AM EDT - 12/10/2023 8:45 AM EDT Surgery ENDO [facility], Endoscopy Room [facility] [address] [place] [phone] Adama Dutta MD [address] [place] [address] ESOPHAGOGASTRODUODENOSCOPY (EGD), FLEXIBLE, TRANSORAL, ENDOSCOPIC ULTRASOUND 12/12/2023 9:40 AM EDT Office Visit Dermatology [facility] [place] [address] [place] [address] [place] [address] Meliza Tao PA-C [address] [place] [address] 05/06/2024 10:00 AM EDT Cardiac Studies Cardiology, [facility] [address] [place] [address] [place], [facility] [address] [place] [address] 07/24/2024 11:00 AM EST Imaging Radiology [address] [place] [address] Scheduled Procedures Name Priority Associated Diagnoses Date/Ti [...] Not on filedocumented as of this encounter Results * HEPATITIS B SURFACE ANTIBODY (10/22/2023 2:16 PM EDT) Pathologist [facility] Hepatitis B Surface Antibody, Quantitative 21.3 mIU/mL 10/23/2023 2:35 AM EDT LABORATORY [facility] Hepatitis B Surface Antibody, Qualitative Positive 10/23/2023 2:35 AM EDT LABORATORY [facility] Hepatitis B Surface Antibody, Interpretation Immune to Hepatitis B Virus 10/23/2023 2:35 AM EDT LABORATORY [facility] Comment: POSITIVE: >=11.5 mIU/mL INDETERMINATE: 8.5-<11.5 mIU/mL NEGATIVE: <8.5 mIU/mL Blood Venous blood specimen / Unknown Venipuncture / Unknown 10/22/2023 2:16 PM EDT 10/22/2023 2:16 PM EDT Rosie Church MD LAB BLOOD ORDERA BLES Performing Organization Address [facility] Co de Phone Number LABORATORY [facility] [address] [place] [address] * HEPATITIS B CORE ANTIBODIES IGG AND IGM (10/22/2023 2:16 PM EDT) Pathologist [facility] Hepatitis B Core Antibodies IgG and IgM Negative Negative 10/23/2023 2:35 AM EDT LABORATORY [facility] Blood Venous blood specimen / Unknown Venipuncture / Unknown 10/22/2023 2:16 PM EDT 10/22/2023 2:16 PM EDT Rosie Church MD LAB BLOOD ORDERA BLES Performing Organization Address City/[facility]/ZIP Co de Phone Number LABORATORY [facility] [address] [place] [address] * HEPATITIS B SURFACE ANTIGEN (10/22/2023 2:16 PM EDT) Hepatitis B Surface Antigen Negative Negative 10/23/2023 2:35 AM EDT LABORATORY [facility] Blood Venous blood specimen / Unknown Venipuncture / Unknown 10/22/2023 2:16 PM EDT 10/22/2023 2:16 PM EDT Rosie Church MD LAB BLOOD ORDERA BLES LABORATORY [facility] [address] [place] [address] documented in this encounter Visit Diagnoses Diagnosis Screening for viral disease- Primary Special screening examination for unspecified viral disease Pancreatic lesion Unspecified disease of pancreas documented in this encounter Care Teams Audio Visual Coordinator Relationship Specialty Start Date End Date Ofelia Garrett MD [address] [place] [address] [place] [address] PCP - General 06/21/01 documented as of this encounter
[2023-10-24] MEDS: carvediloL 3.125 MG TAB PO SCH (14:06)
--- NOTE | 2023-10-24 15:53 | Discharge Summary ---
Date of Service October 24, 2023 Admission HPI Per Admitting Provider 78-year-old female with past med history significant for hyperlipidemia, hypertension, history of calculus of gallbladder, CKD stage II, smoldering multiple myeloma, history of renal cell carcinoma s/p right nephrectomy 1997, history of symptomatic Mobitz type II's second degree heart block s/p pacemaker in February 2023 comes in because of hypertensive urgency. Patient states in first week of September she was having a lot of cough and on one day she almost passed out. Workup by PCP was unremarkable with 24 hours monitor and labs and thought to be dehydration and hydrochlorothiazide was stopped. She checks her blood pressure every2 /3 days and generally blood pressure in 130s/80s. There is a plan to start chemo for smoldering multiple myeloma. And she is anxious about it. Today when she checked her blood pressure it was in 200s. She checked with another blood pressure machine and it was still high and she got anxious. She took a dose of hctz. And she was brought to the hospital. In the ER she was given a dose of sublingual Ativan. And blood pressure came down to 160s. Currently resting comfortably. Denies any chest pain. No shortness of breath. Currently no cough. No headache. No dizziness. She states 4 days ago she had a brief episode of double vision. No runny nose or sore throat. Appetite is okay. No difficulty swallowing. No nausea. No abdominal pain. Normal bowel and bladder movements. No swelling in the legs. Past medical history. As mentioned above past surgical history. Bone marrow biopsy. EGD with endoscopic ultrasound. Right nephrectomy. Tonsillectomy and adenoidectomy. Status post pacemaker. Social history. . No smoking. No alcohol use. No drug use. Family history. Mother had breast cancer. Colon cancer. Sister had breast cancer. Daughter had carotid body tumor. Father had heart disorder. Thyroid cancer. Brother had lung cancer. Brother had seizures. Admission Exam Per Admitting Provider General- Not in distress Head- atraumatic Eyes- PERRL. ENT- oropharynx clear Neck- supple, no JVD. Lungs- clear to auscultation no wheezing or crackles. Heart- regular rhythm; no murmur, no gallop. Abdomen- normal bowel sounds, soft, nontender, no distension. Extremities- no pretibial edema, no erythema seen Neuro- alert, oriented PERRL, no facial palsy; no dysarthria; moves extremities. Principal Diagnosis Hypertensive urgency Discharge Exam General- Not in distress Head- atraumatic Eyes- PERRL. ENT- oropharynx clear Neck- supple, no JVD. Lungs- clear to auscultation no wheezing or crackles. Heart- regular rhythm; no murmur, no gallop. Abdomen- normal bowel sounds, soft, nontender, no distension. Extremities- no pretibial edema, no erythema seen Neuro- alert, oriented PERRL, no facial palsy; no dysarthria; moves extremities. Discharge Data Allergies Allergy/AdvReac Type Severity Reaction Status Date / Time adhesive Allergy Intermediate SKIN Verified 10/23/23 21:37 IRRITATION diltiazem Allergy Mild RASH Verified 10/23/23 21:37 Sulfa (Sulfonamide Allergy Mild RASH Verified 10/23/23 21:37 Antibiotics) Consultations 10/23/23 23:29 ED Decision to Admit Stat 10/24/23 08:00 Consult Cardiology Routine Hospital Course (1) Hypertensive urgency: Per prior attending with addendum: 78-year-old female with past med history significant for hyperlipidemia, hypertension, history of calculus of gallbladder, CKD stage II, smoldering multiple myeloma, history of renal cell carcinoma s/p right nephrectomy 1997, history of symptomatic Mobitz type II's second degree heart block s/p pacemaker in February 2023 comes in because of hypertensive urgency. Patient states in first week of September she was having a lot of cough and on one day she almost passed out. Workup by PCP was unremarkable with 24 hours monitor and labs and thought to be dehydration and hydrochlorothiazide was stopped. She checks her blood pressure every2 /3 days and generally blood pressure in 130s/80s. There is a plan to start chemo for smoldering multiple myeloma. And she is anxious about it. Today when she checked her blood pressure it was in 200s. She checked with another blood pressure machine and it was still high and she got anxious. She took a dose of hctz. And she was brought to the hospital. In the ER she was given a dose of sublingual Ativan. And blood pressure came down to 160s. Currently resting comfortably. Denies any chest pain. No shortness of breath. Currently no cough. No headache. No dizziness. She states 4 days ago she had a brief episode of double vision. No runny nose or sore throat. Appeti te is okay. No difficulty swallowing. No nausea. No abdominal pain. Normal bowel and bladder movements. No swelling in the legs. Hypertensive urgency Initial blood pressure in 200s Patient is somewhat anxious for upcoming chemo for smoldering multiple myeloma After dose of Ativan blood pressure in 160s And also recently her hydrochlorothiazide was stopped because of dehydration and she took a dose before coming to the hospital Will continue home lisinopril amlodipine Labetalol as needed for now Echo Telemetry Cardiac consult in a.m. Elevated troponin Mostly demand ischemia Follow serial enzymes and echo History of Mobitz type II second-degree heart block S/p pacemaker Hyperlipidemia On Zetia Hypothyroidism On Synthyroid History of renal cell carcinoma S/p right nephrectomy 1997 Smoldering multiple myeloma Plan for chemo Follow-up with heme-onc DVT prophylaxis Lovenox Disposition Telemetry Full code Addendum 10/24/23: Patient was seen and examined at bedside as a follow-up of Anxiety due to upcoming chemotherapy causing hypertensive urgency treated with sublingual Ativan. Troponin mildly elevated, flat trend, echo without regional wall motion abnormality. Patient with no chest pain. Patient reports feeling back to her baseline, reports anxiety resolved, is willing to try as needed Vistaril for anxiety management. Cardiology evaluated, Coreg has been added. Blood pressure has been under control and patient would like to go home. She is being discharged with following instruction at the point of discharge: Follow-up with your primary care physician within a week time and likely you will need labs CBC/CMP/magnesium/phosphorus. Your blood pressure was elevated at presentation, cardiology evaluated you. Coreg has been added. Vistaril will be added for as needed for anxiety. Take your medications as prescribed. Please make sure that you are able to get your medications today by calling your pharmacy before you leave the hospital so that your treatment continuity is not broken. Home Health Attestation I certify that this patient is under my care and that I, or a physicians dietary assistant working with me, had a face to-face encounter that meets the home health [id number] encounter requirements with this patient. The encounter with the patient was in whole, or in part, for the following medical condition, which is the primary reason for home health care (list medical condition): I certify that, based on my findings, the following services are medically necessary home health services: My clinical findings support the need for the above services because: Further, I certify that my clinical findings support that this patient is homebound (i.e. absences from home require considerable and taxing effort and are for medical reasons or confucianist services or infrequently or of short duration when for other reasons) because: Certification for Home Health Services: Based on the above findings, I certify that this patient is confined to the home and needs intermittent detention care, physical therapy and/or speech therapy or continues to need occupational therapy. The patient is under my care, and I have initiated the establishment of the plan of care. This patient will be followed by a physician who will periodically review the plan of care. Total Time Total Time Spent Total Time Spent (In Minutes): 45 Discharge Plan Discharge Items Patient Disposition: Home - Self-Care Reason For Visit: HTN URGENCY Discharge Diagnosis: Hypertensive urgency Activity: Resume your previous activity Non-emergency contact: Primary Care Provider Call non-emergency contact if: you have any medication questions and your symptoms worsen Follow-up/Referrals: Jb Garrett [Primary Care Provider] - Diet: Heart Healthy and Low Sodium (2gm) Addtl Attending Provider Instructions: Follow-up with your primary care physician within a week time and likely you will need labs CBC/CMP/magnesium/phosphorus. Your blood pressure was elevated at presentation, cardiology evaluated you. Coreg has been added. Vistaril will be added for as needed for anxiety. Take your medications as prescribed. Please make sure that you are able to get your medications today by calling your pharmacy before you leave the hospital so that your treatment continuity is not broken. Pending Studies at Discharge: No Stand-Alone Forms: My [facility] [employer], Smoking Cessation Medications and DC Order Prescriptions: New carvedilol 3.125 mg Tablet 3.125 mg PO BIDM Qty: 60 0RF hydroxyzine HCl 25 mg tablet 25 mg PO BID PRN (Reason: anxiety) Qty: 30 0RF Continued cholecalciferol (vitamin D3) 25 mcg (1,000 unit) tablet 5,000 unit PO DAILY multivitamin,tx-minerals Tablet 1 tab PO DAILY levothyroxine 25 mcg tablet 25 mcg PO DAILYBB amlodipine 10 mg tablet 10 mg PO QAM gabapentin 100 mg capsule 100 mg PO QID ezetimibe 10 mg tablet 10 mg PO QPM lisinopril 20 mg tablet 20 mg PO BID melatonin 3 mg Tablet 3 - 9 mg PO HS PRN (Reason: Sleep) fexofenadine [Christie] 180 mg Tablet 180 mg PO DAILY docusate sodium 100 mg Capsule 100 mg PO BID Probiotic 5 billion cell Capsule, Sprinkle 1 cap PO TIDM psyllium husk (with sugar) [Metamucil Free] 3 gram/7 gram Powder 1 tbsp PO DAILY Discharge Orders: Discharge Order (Routine); Ordered 10/24/23 Ordered By: Carlos Manuel Berry Admission Data Admit Date/Time: 10/24/23 01:05 Attending Provider: Carlos Manuel Berry Admit Provider: Johan Kim Primary Care Provider: Jb Garrett Other Providers: Johan Kim; Karsten Thompson
[2023-10-24] MEDS ORDERED: EZETIMIBE 10 MG TAB PO SCH (21:00)
--- NOTE | 2023-10-26 19:16 | Electrocardiogram Report ---
Test Reason : Blood Pressure : / mmHG Vent. Rate : 094 BPM Atrial Rate : 094 BPM P-R Int : 166 ms QRS Dur : 094 ms QT Int : 370 ms P-R-T Axes : 041 015 010 degrees QTc Int : 462 ms Atrial-sensed ventricular-paced rhythm Abnormal ECG When compared with ECG of 14-MAR-2023 06:19, Vent. rate has increased BY 34 BPM Confirmed by Ba Hernandez ([id number]) on 10/26/2023 7:16:17 PM Referred By: REFERRED SELF Confirmed By:Ba Hernandez
== END 2023-10-24 16:15 | disposition home or self-care (01) | DRG 305 ==
LOC: ED 17:39 → EDINP 10-24 01:05 → SUATTDRO 10-24 01:05 → EDINP 10-24 03:04